=== PATIENT | male | born 1970 | race Caucasian/White ===

== ENCOUNTER 2016-08-08 09:27 | Emergency (ER) | payer MEDICARE, OTHER ==
[~2016-08-08] VITALS: Ht 180.3 cm; Wt 68.0 kg
[2016-08-08 09:32] VITALS: BP 124/75; PULSE 106; RESP 20; TEMP 98; O2SAT 95
[2016-08-08] MEDS ORDERED: predniSONE 20 MG TAB PO ONE (10:30)
[2016-08-08] MEDS ORDERED: diphenhydrAMINE HCL 25 MG CAP PO ONE (10:30)
[2016-08-08] MEDS ORDERED: CEPHALEXIN MONOHYDRATE 500 MG CAP PO ONE (10:30)
--- NOTE | 2016-08-08 10:31 | PD ---
HPI Chief Complaint: Edema Time Seen by Provider: 10:26 Travel History International Travel<30 days: No Contact w/Intl Traveler<30days: No Traveled to known affect area: No History of Present Illness HPI 46-year-old male presents to the emergency department for soft tissue swelling of the forehead. He states this started yesterday. He states he believes it is a reaction to Prolixin that he [facility] the [facility]. He states he has been receiving Prolixin for 2 months. He thinks that the medication was injected in his buttock and traveled up to his forehead. He states he like the medicine drained out of his forehead. He denies any fevers or chills. He Denies any difficulty breathing or swallowing. No chest pain or shortness of breath. No abdominal pain. No vomiting. He denies any other complaints other than forehead swelling. Patient is currently a resident [facility]. [facility] Past Medical History Diabetes: No Diminished Hearing: No Social History Alcohol Use: Yes (SOCIALLY) Tobacco Use: No Substance Use: No Allergies-Medications (Allergen,Severity, Reaction): Coded Allergies: No Known Allergies (Unverified , 08/08/16) Reported Meds & Prescriptions Reported Meds & Active Scripts Active Keflex (Cephalexin) 500 Mg Cap 500 Mg PO Q6H 10 Days Review of Systems Except as stated in HPI: all other systems reviewed are Neg Physical Exam Narrative GENERAL: Well-developed well-nourished male patient, ambulatory. Afebrile. SKIN: Warm and dry. Mild swelling noted to the entire forehead. There is mild erythema and warmth. However, patient states that he was out in the sun yesterday and states this is sunburn. No other facial swelling noted. HEAD: Normocephalic. Atraumatic. EYES: No scleral icterus. No injection or drainage. ENT: Mucosa pink and moist. No erythema or exudates. No uvular edema. No uvular , palatal, or tonsillar deviation. Airway patent. Nasal turbinates appear normal without nasal blood, purulent drainage or septal hematoma. Bilateral tympanic membranes are clear without erythema or perforation. NECK: Supple, trachea midline. No JVD or lymphadenopathy. CARDIOVASCULAR: Regular rate and rhythm without murmurs, gallops, or rubs. RESPIRATORY: Breath sounds equal bilaterally. No accessory muscle use. Lungs sounds are clear to auscultation throughout. GASTROINTESTINAL: Abdomen soft, non-tender, nondistended. MUSCULOSKELETAL: No cyanosis, or edema. BACK: Nontender without obvious deformity. No CVA tenderness. Data Data Last Documented VS Vital Signs Date Time Temp Pulse Resp B/P Pulse Ox O2 Delivery O2 Flow Rate FiO2 08/08/16 09:32 98.0 106 20 124/75 95 Room Air Orders Prednisone (Deltasone) (08/08/16 10:30) Diphenhydramine (Benadryl) (08/08/16 10:30) Cephalexin (Keflex) (08/08/16 10:30) MDM Medical Decision Making Medical Screen Exam Complete: Yes Emergency Medical Condition: Yes Medical Record Reviewed: Yes Differential Diagnosis Superficial burn versus cellulitis versus medication reaction Narrative Course 46-year-old male presents to the emergency department for evaluation of forehead swelling that started yesterday. He does state that he was out in the sun yesterday. His forehead is mildly erythema and warm. I don't see any other sun burned areas. This possible that the edema is just due to superficial burn from sun. Other possibility is cellulitis. Patient is given Benadryl and prednisone in the emergency department and is given first dose of Keflex. He will be discharged with a short-term prescription for Keflex. He is to take Benadryl [id number] as needed for itching and ice. He verbalizes agreement. Diagnosis Primary Impression: Superficial burn of forehead Referrals: Primary Care Physician call for appointment Patient Instructions: General Instructions, Superficial Burn (ED) Additional Instructions: Benadryl [id number] 25 to 50 mg every 6-8 hours as needed. Ice for 20 minutes 4-5 times daily. Take antibiotic as directed until gone. Follow-up with your primary care physician. Return to the emergency department for any acute worsening of symptoms. Med/Other Pt SpecificInfo: Prescription(s) given Scripts Cephalexin (Keflex)500 Mg [id number] Mg PO Q6H 10 Days Ref 0 Prov:Shannon Darnell 08/08/16 Disposition: 01 DISCHARGE HOME Condition: Stable Shannon Darnell Aug 08, 2016 10:31 Shannon Darnell Aug 08, 2016 10:31
[2016-08-08] MEDS ORDERED: CEPH-460 PO (10:35)
== END 2016-08-08 11:32 | disposition home or self-care (01) ==
LOC: NETRI 09:27
DX: T20.16XA Burn of first degree of forehead and cheek, initial encounter (principal); X08.8XXA Exposure to other specified smoke, fire and flames, initial encounter
CPT/HCPCS: 99282

== ENCOUNTER 2016-10-22 12:11 | Emergency (ER) | payer OTHER ==
[~2016-10-22] VITALS: Ht 180.3 cm; Wt 65.0 kg
[~2016-10-22 12:11] MED LIST: CEPH-460 PO
--- NOTE | 2016-10-22 12:25 | PD ---
Physical Exam Date Seen by Provider: Oct 22, 2016 Time Seen by Provider: 12:24 Narrative 46-year-old male with history of schizophrenia, brought in by [facility] under the [email or web address]. Patient was at [facility] and was referred here as he is a danger to himself and others according to her statement. The patient has no specific complaints. Patient states he feels also refused being a child molester and rapist. He feels the medication he is on is not helping him. He has no known drug allergies. Data Data Last Documented VS Vital Signs Date Time Temp Pulse Resp B/P Pulse Ox O2 Delivery O2 Flow Rate FiO2 10/22/16 20:18 97.6 120 18 129/75 96 Room Air Orders Complete Blood Count With Diff (10/22/16 12:23) Comprehensive Metabolic Panel (10/22/16 12:23) Urinalysis - C+S If Indicated (10/22/16 12:23) Psych Screen (10/22/16 12:23) Drug Screen, Random Urine (10/22/16 12:23) Alcohol (Ethanol) (10/22/16 12:23) Diet Regular Basic (10/22/16 Dinner) Labs Laboratory Tests Test 10/22/16 10/22/16 13:08 14:38 White Blood Count 9.3 TH/MM3 Red Blood Count 4.74 MIL/MM3 Hemoglobin 15.1 GM/DL Hematocrit 44.3 % Mean Corpuscular Volume 93.4 FL Mean Corpuscular Hemoglobin 31.8 PG Mean Corpuscular Hemoglobin 34.0 % Concent Red Cell Distribution Width 13.2 % Platelet Count 325 TH/MM3 Mean Platelet Volume 9.9 FL Neutrophils (%) (Auto) 71.7 % Lymphocytes (%) (Auto) 17.5 % Monocytes (%) (Auto) 8.0 % Eosinophils (%) (Auto) 2.4 % Basophils (%) (Auto) 0.4 % Neutrophils # (Auto) 6.7 TH/MM3 Lymphocytes # (Auto) 1.6 TH/MM3 Monocytes # (Auto) 0.7 TH/MM3 Eosinophils # (Auto) 0.2 TH/MM3 Basophils # (Auto) 0.0 TH/MM3 CBC Comment DIFF FINAL Differential Comment Sodium Level 139 MEQ/L Potassium Level 3.3 MEQ/L Chloride Level 102 MEQ/L Carbon Dioxide Level 24.8 MEQ/L Anion Gap 12 MEQ/L Blood Urea Nitrogen 12 MG/DL Creatinine 1.04 MG/DL Estimat Glomerular Filtration 77 ML/MIN Rate Random Glucose 109 MG/DL Calcium Level 8.7 MG/DL Total Bilirubin 0.2 MG/DL Aspartate Amino Transf 11 U/L (AST/SGOT) Alanine Aminotransferase 18 U/L (ALT/SGPT) Alkaline Phosphatase 76 U/L Total Protein 7.4 GM/DL Albumin 3.9 GM/DL Ethyl Alcohol Level LESS THAN 3 MG/DL Urine Color YELLOW Urine Turbidity CLEAR Urine pH 6.0 Urine Specific [place] 1.009 Urine Protein NEG mg/dL Urine Glucose (UA) NEG mg/dL Urine Ketones NEG mg/dL Urine Occult Blood NEG Urine Nitrite NEG Urine Bilirubin NEG Urine Urobilinogen LESS THAN 2.0 MG/DL Urine Leukocyte Esterase NEG Urine RBC LESS THAN 1 /hpf Urine WBC 1 /hpf Microscopic Urinalysis Comment CULT NOT INDICATED Urine Opiates Screen NEG Urine Barbiturates Screen NEG Urine Amphetamines Screen NEG Urine Benzodiazepines Screen NEG Urine Cocaine Screen NEG Urine Cannabinoids Screen NEG MDM Medical Record Reviewed: Yes Supervised Visit with ALPESH: Yes Narrative Course Labs are ordered per psychiatric protocol. Patient is awaiting med bed placement for clearance. Condition: Stable Jorge Parker Oct 22, 2016 12:25
[2016-10-22 12:47] VITALS: BP 117/79; PULSE 108; RESP 15; TEMP 98.2; O2SAT 98
[2016-10-22 12:58] VITALS: PULSE 110; RESP 18; TEMP 98.6; O2SAT 98
[2016-10-22] MEDS ORDERED: HALD50IN IM (12:58)
[2016-10-22] MEDS ORDERED: RISP.25 PO (12:58)
[2016-10-22] MEDS ORDERED: COGE1INJ IM (12:58)
[2016-10-22] MEDS ORDERED: FLUO-1 PO (12:58)
--- NOTE | 2016-10-22 13:00 | PD ---
HPI . Paranoid hallucinations Chief Complaint: Psychiatric Symptoms Time Seen by Provider: 13:00 Travel History International Travel<30 days: No Contact w/Intl Traveler<30days: No Traveled to known affect area: No History of Present Illness HPI 46-year-old male with history of mood disorder and depression here with complaints of paranoia. Patient was [place] acted at his nursing facility due to believes that people were calling him names such as fagot, child molester, etc. he says that everyone is calling him names including staff and patients. He tells me that no one has hit him or made any threats. He denies any suicidal ideation or homicidal ideation. He has no medical complaints. PFSH Past Medical History Diabetes: No Diminished Hearing: No Social History Alcohol Use: Yes (SOCIALLY) Tobacco Use: No Substance Use: No Allergies-Medications (Allergen,Severity, Reaction): Coded Allergies: No Known Allergies (Unverified , 08/08/16) Reported Meds & Prescriptions Reported Meds & Active Scripts Active Reported Cogentin Inj (Benztropine Mesylate) 1 Mg/Ml Inj 1 Mg IM HS Prozac (Fluoxetine HCl) 10 Mg Cap 10 Mg PO DAILY Haldol Decanoate Inj (Haloperidol Decanoate) 50 Mg/Ml Inj 50 Mg IM Q28D Risperdal (Risperidone) 0.25 Mg Tab 0.25 Mg PO DAILY Review of Systems General / Constitutional: No: Fever Eyes: No: Visual changes HENT: No: Headaches Cardiovascular: No: Chest Pain or Discomfort Respiratory: No: Shortness of Breath Gastrointestinal: No: Abdominal Pain Genitourinary: No: Dysuria Musculoskeletal: No: Pain Skin: No Rash Neurologic: No: Weakness Psychiatric: Positive: Other (paranoid), No: Depression Endocrine: No: Polydipsia Hematologic/Lymphatic: No: Easy Bruising Physical Exam Narrative GENERAL: AAO x 3, no acute distress, Well-nourished, well-developed patient. SKIN: Warm and dry. Dry scaling slightly erythematous patches near her eyebrows , cheeks and chin. Appears to be seborrheic dermatitis. HEAD: Normocephalic and atraumatic. EYES: No scleral icterus. No injection or drainage. EOM intact, PERRLA ENT: No nasal drainage noted. Mucous membranes pink. Airway patent. NECK: Supple, trachea midline. No JVD. CARDIOVASCULAR: Regular rate and rhythm without murmurs, gallops, or rubs. RESPIRATORY: Breath sounds equal bilaterally. No accessory muscle use. No rhonchi or rales. GASTROINTESTINAL: Abdomen soft, non-tender, nondistended. EXTREMITIES: No cyanosis or edema. BACK: Nontender without obvious deformity. No CVA tenderness. 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 Data Data Last Documented VS Vital Signs Date Time Temp Pulse Resp B/P Pulse Ox O2 Delivery O2 Flow Rate FiO2 10/22/16 12:58 98.6 110 18 98 Orders Complete Blood Count With Diff (10/22/16 12:23) Comprehensive Metabolic Panel (10/22/16 12:23) Urinalysis - C+S If Indicated (10/22/16 12:23) Psych Screen (10/22/16 12:23) Drug Screen, Random Urine (10/22/16 12:23) Alcohol (Ethanol) (10/22/16 12:23) Diet Regular Basic (10/22/16 Dinner) Labs Laboratory Tests Test 10/22/16 10/22/16 13:08 14:38 White Blood Count 9.3 TH/MM3 Red Blood Count 4.74 MIL/MM3 Hemoglobin 15.1 GM/DL Hematocrit 44.3 % Mean Corpuscular Volume 93.4 FL Mean Corpuscular Hemoglobin 31.8 PG Mean Corpuscular Hemoglobin 34.0 % Concent Red Cell Distribution Width 13.2 % Platelet Count 325 TH/MM3 Mean Platelet Volume 9.9 FL Neutrophils (%) (Auto) 71.7 % Lymphocytes (%) (Auto) 17.5 % Monocytes (%) (Auto) 8.0 % Eosinophils (%) (Auto) 2.4 % Basophils (%) (Auto) 0.4 % Neutrophils # (Auto) 6.7 TH/MM3 Lymphocytes # (Auto) 1.6 TH/MM3 Monocytes # (Auto) 0.7 TH/MM3 Eosinophils # (Auto) 0.2 TH/MM3 Basophils # (Auto) 0.0 TH/MM3 CBC Comment DIFF FINAL Differential Comment Sodium Level 139 MEQ/L Potassium Level 3.3 MEQ/L Chloride Level 102 MEQ/L Carbon Dioxide Level 24.8 MEQ/L Anion Gap 12 MEQ/L Blood Urea Nitrogen 12 MG/DL Creatinine 1.04 MG/DL Estimat Glomerular Filtration 77 ML/MIN Rate Random Glucose 109 MG/DL Calcium Level 8.7 MG/DL Total Bilirubin 0.2 MG/DL Aspartate Amino Transf 11 U/L (AST/SGOT) Alanine Aminotransferase 18 U/L (ALT/SGPT) Alkaline Phosphatase 76 U/L Total Protein 7.4 GM/DL Albumin 3.9 GM/DL Ethyl Alcohol Level LESS THAN 3 MG/DL Urine Color YELLOW Urine Turbidity CLEAR Urine pH 6.0 Urine Specific [place] 1.009 Urine Protein NEG mg/dL Urine Glucose (UA) NEG mg/dL Urine Ketones NEG mg/dL Urine Occult Blood NEG Urine Nitrite NEG Urine Bilirubin NEG Urine Urobilinogen LESS THAN 2.0 MG/DL Urine Leukocyte Esterase NEG Urine RBC LESS THAN 1 /hpf Urine WBC 1 /hpf Urine Opiates Screen NEG Urine Barbiturates Screen NEG Urine Amphetamines Screen NEG Urine Benzodiazepines Screen NEG Urine Cocaine Screen NEG Urine Cannabinoids Screen NEG MDM Medical Decision Making Medical Screen Exam Complete: Yes Emergency Medical Condition: Yes Medical Record Reviewed: Yes Differential Diagnosis paranoia, schizophrenia, bipolar disorder, Narrative Course 46-year-old male here with complaints of paranoia. Examination of patient is unremarkable. He does have what appears to be seborrheic dermatitis, but does not have any specific complaints about this. I will go ahead and order labs and if they are within normal limits, patient will be cleared for psych screen. Labs reviewed. They're within normal limits, except for minimally low K+. Patient is medically clear for psych screen. Laboratory Tests Test 10/22/16 10/22/16 13:08 14:38 White Blood Count 9.3 TH/MM3 Red Blood Count 4.74 MIL/MM3 Hemoglobin 15.1 GM/DL Hematocrit 44.3 % Mean Corpuscular Volume 93.4 FL Mean Corpuscular Hemoglobin 31.8 PG Mean Corpuscular Hemoglobin 34.0 % Concent Red Cell Distribution Width 13.2 % Platelet Count 325 TH/MM3 Mean Platelet Volume 9.9 FL Neutrophils (%) (Auto) 71.7 % Lymphocytes (%) (Auto) 17.5 % Monocytes (%) (Auto) 8.0 % Eosinophils (%) (Auto) 2.4 % Basophils (%) (Auto) 0.4 % Neutrophils # (Auto) 6.7 TH/MM3 Lymphocytes # (Auto) 1.6 TH/MM3 Monocytes # (Auto) 0.7 TH/MM3 Eosinophils # (Auto) 0.2 TH/MM3 Basophils # (Auto) 0.0 TH/MM3 CBC Comment DIFF FINAL Differential Comment Sodium Level 139 MEQ/L Potassium Level 3.3 MEQ/L Chloride Level 102 MEQ/L Carbon Dioxide Level 24.8 MEQ/L Anion Gap 12 MEQ/L Blood Urea Nitrogen 12 MG/DL Creatinine 1.04 MG/DL Estimat Glomerular Filtration 77 ML/MIN Rate Random Glucose 109 MG/DL Calcium Level 8.7 MG/DL Total Bilirubin 0.2 MG/DL Aspartate Amino Transf 11 U/L (AST/SGOT) Alanine Aminotransferase 18 U/L (ALT/SGPT) Alkaline Phosphatase 76 U/L Total Protein 7.4 GM/DL Albumin 3.9 GM/DL Ethyl Alcohol Level LESS THAN 3 MG/DL Urine Color YELLOW Urine Turbidity CLEAR Urine pH 6.0 Urine Specific [place] 1.009 Urine Protein NEG mg/dL Urine Glucose (UA) NEG mg/dL Urine Ketones NEG mg/dL Urine Occult Blood NEG Urine Nitrite NEG Urine Bilirubin NEG Urine Urobilinogen LESS THAN 2.0 MG/DL Urine Leukocyte Esterase NEG Urine RBC LESS THAN 1 /hpf Urine WBC 1 /hpf Urine Opiates Screen NEG Urine Barbiturates Screen NEG Urine Amphetamines Screen NEG Urine Benzodiazepines Screen NEG Urine Cocaine Screen NEG Urine Cannabinoids Screen NEG Diagnosis Primary Impression: Paranoid Condition: Stable Yue Victor Oct 22, 2016 13:00
[2016-10-22 15:08] LABS: BLOOD, URINE NEG (NEG); GLUCOSE,URINE NEG (NEG); KETONE, URINE NEG (NEG); NITRITE,URINE NEG (NEG); URINE COLOR YELLOW (YELLW/STRAW)
[2016-10-22 15:30] LABS: AMPHETAMINE, URINE NEG (NEG); BARBITURATES, URINE NEG (NEG); COCAINE, URINE NEG (NEG)
[2016-10-22 15:35] LABS: AUTOMATED NEUTROPHIL # 6.7 TH/MM3 (1.8-7.7); BASOPHIL % 0.4 % (0.0-2.0); EOSINOPHIL # 0.2 TH/MM3 (0-0.4); EOSINOPHIL % 2.4 % (0.0-4.0); HEMATOCRIT 44.3 % (39.0-51.0); HEMO FLAGS DIFF FINAL; LYMPH % 17.5 % (9.0-44.0); LYMPHOCYTE # 1.6 TH/MM3 (1.0-4.8); MEAN CELL VOLUME 93.4 FL (80.0-100.0); MEAN CORPUSCULAR HEMOGLOBIN 31.8 PG (27.0-34.0); NEUT % 71.7 % (16.0-70.0); PLATELET COUNT 325 TH/MM3 (150-450); RED BLOOD COUNT 4.74 MIL/MM3 (4.50-5.90); RED CELL DISTRIBUTION WIDTH 13.2 % (11.6-17.2); WHITE BLOOD COUNT 9.3 TH/MM3 (4.0-11.0)
[2016-10-22 16:21] LABS: ANION GAP 12 MEQ/L (5-15); AST (GOT) 11 U/L (15-37); BICARBONATE 24.8 MEQ/L (21.0-32.0); BLOOD UREA NITROGEN 12 MG/DL (7-18); CHLORIDE 102 MEQ/L (98-107); GLOMERULAR FILTRATION RATE 77 ML/MIN (>89); POTASSIUM 3.3 MEQ/L (3.5-5.1); SODIUM (NA) 139 MEQ/L (136-145)
[2016-10-22 16:22] LABS: ALT (GPT) 18 U/L (12-78)
[2016-10-22 16:24] LABS: ALKALINE PHOSPHATASE 76 U/L (45-117); TOTAL BILIRUBIN ADULT 0.2 MG/DL (0.2-1.0)
[2016-10-22 16:51] LABS: COMMENT (UR) CULT NOT INDICATED; CULTURE IF INDICATED CULT NOT INDICATED
[2016-10-22 20:18] VITALS: BP 129/75; PULSE 120; RESP 18; TEMP 97.6; O2SAT 96
[2016-10-22 22:05] VITALS: BP 117/60; PULSE 103; RESP 20; O2SAT 98
[2016-10-23 02:20] VITALS: BP 120/70; PULSE 99; RESP 18; O2SAT 97
== END 2016-10-23 03:30 ==
LOC: NEPD 12:11 → NEPJ 10-23 03:30
DX: F22 Delusional disorders (principal); F33.8 Other recurrent depressive disorders; L21.9 Seborrheic dermatitis, unspecified
CPT/HCPCS: 80053; 80307; 81001; 85025; 99284

== ENCOUNTER 2016-11-15 12:28 | Observation (INO) | payer MEDICARE, OTHER ==
[~2016-11-15 12:28] MED LIST changes: -CEPH-460 PO; +COGE1INJ IM; +FLUO-1 PO; +HALD50IN IM; +RISP.25 PO
[2016-11-15 12:46] VITALS: BP 127/59; PULSE 102; RESP 18; TEMP 97.9; O2SAT 98
[2016-11-15] MEDS ORDERED: SODIUM CHLOR 0.9% 1000 ML INJ 1,000 ML IV ONE (12:48)
--- NOTE | 2016-11-15 12:53 | PD ---
HPI Chief Complaint: Seizure Time Seen by Provider: 12:50 Travel History International Travel<30 days: No Contact w/Intl Traveler<30days: No Traveled to known affect area: No History of Present Illness HPI 46-year-old male presents to the emergency department for evaluation after a seizure at [facility]. Apparently, he was sitting when he fell forward and had a seizure. He has no history of seizures. He does state he has had a pressure in his head that has been ongoing for 3-4 months. He denies any headache at this time. He denies any neck pain or back pain. No chest pain or abdominal pain. No nausea, vomiting, diarrhea. He has a history of schizoaffective disorder. He is currently on Zyprexa, Haldol, Prozac. Patient did have incontinence and tongue biting during the episode. Patient was postictal when EMS arrived. He is now alert and conversing appropriately. Patient denies any alcohol or drug use. PFSH Past Medical History Anxiety: Yes Depression: Yes Cancer: Yes (L EYE) Diabetes: No Diminished Hearing: No Psychiatric: Yes Immunizations Current: No Schizophrenia: Yes Past Surgical History Eye Surgery: Yes (LEFT EYE) Social History Alcohol Use: Yes (SOCIALLY) Tobacco Use: Yes (1/2 PPD) Substance Use: No Allergies-Medications (Allergen,Severity, Reaction): Coded Allergies: No Known Allergies (Unverified , 11/15/16) Reported Meds & Prescriptions Reported Meds & Active Scripts Active Reported Cogentin Inj (Benztropine Mesylate) 1 Mg/Ml Inj 1 Mg IM HS Prozac (Fluoxetine HCl) 10 Mg Cap 10 Mg PO DAILY Haldol Decanoate Inj (Haloperidol Decanoate) 50 Mg/Ml Inj 50 Mg IM Q28D Risperdal (Risperidone) 0.25 Mg Tab 0.25 Mg PO DAILY Review of Systems Except as stated in HPI: all other systems reviewed are Neg Physical Exam Narrative GENERAL: Well-nourished, well-developed male patient, afebrile. SKIN: Focused skin assessment warm/dry. HEAD: Normocephalic. Atraumatic. ENT: Mucosa pink and moist. No erythema or exudates. No uvular edema. No uvular , palatal, or tonsillar deviation. Airway patent. Nasal turbinates appear normal without nasal blood, purulent drainage or septal hematoma. Bilateral tympanic membranes are clear without erythema or perforation. Patient does have abrasion to the right side of the tongue. EYES: No scleral icterus. No injection or drainage. PERRLA. EOM intact. NECK: Supple, trachea midline. No JVD or lymphadenopathy. CARDIOVASCULAR: Regular rate and rhythm without murmurs, gallops, or rubs. RESPIRATORY: Breath sounds equal bilaterally. No accessory muscle use. Lungs sounds are clear to auscultation. GASTROINTESTINAL: Abdomen soft, non-tender, nondistended. MUSCULOSKELETAL: No cyanosis, or edema. Bilateral upper and lower extremity strength 5/5. All extremities are neurovascularly intact. BACK: Nontender without obvious deformity. No CVA tenderness. Patient has no midline spinal tenderness. He has full rotation cervical spine without pain or stiffness. NEUROLOGICAL: Awake and alert. Cranial nerves II through XII intact. Motor and sensory grossly within normal limits. Five out of 5 muscle strength in all muscle groups. Normal speech. Finger to nose is normal bilaterally. Heel-to- zavaleta is normal bilaterally. Data Data Last Documented VS Vital Signs Date Time Temp Pulse Resp B/P Pulse Ox O2 Delivery O2 Flow Rate FiO2 11/15/16 12:47 101 98 11/15/16 12:46 97.9 18 127/59 Orders Complete Blood Count With Diff (11/15/16 12:48) Alcohol (Ethanol) (11/15/16 12:48) Drug Screen, Random Urine (11/15/16 12:48) Electrocardiogram (11/15/16 ) Ct Brain W/O Iv Contrast(Rout) (11/15/16 ) Blood Glucose (11/15/16 12:48) Ecg Monitoring (11/15/16 12:48) Iv Access Insert/Monitor (11/15/16 12:48) Oximetry (11/15/16 12:48) Comprehensive Metabolic Panel (11/15/16 12:48) Sodium Chlor 0.9% 1000 Ml Inj (Ns 1000 M (11/15/16 12:48) Sodium Chloride 0.9% Flush (Ns Flush) (11/15/16 13:00) Urinalysis - C+S If Indicated (11/15/16 12:48) Magnesium (Mg) (11/15/16 12:53) Admit Order (Ed Use Only) (11/15/16 14:04) Labs Laboratory Tests Test 11/15/16 11/15/16 12:56 13:34 White Blood Count 10.1 TH/MM3 Red Blood Count 4.25 MIL/MM3 Hemoglobin 12.9 GM/DL Hematocrit 39.0 % Mean Corpuscular Volume 91.7 FL Mean Corpuscular Hemoglobin 30.4 PG Mean Corpuscular Hemoglobin 33.1 % Concent Red Cell Distribution Width 13.3 % Platelet Count 236 TH/MM3 Mean Platelet Volume 10.0 FL Neutrophils (%) (Auto) 62.4 % Lymphocytes (%) (Auto) 26.2 % Monocytes (%) (Auto) 8.3 % Eosinophils (%) (Auto) 2.6 % Basophils (%) (Auto) 0.5 % Neutrophils # (Auto) 6.3 TH/MM3 Lymphocytes # (Auto) 2.6 TH/MM3 Monocytes # (Auto) 0.8 TH/MM3 Eosinophils # (Auto) 0.3 TH/MM3 Basophils # (Auto) 0.0 TH/MM3 CBC Comment AUTO DIFF Differential Total Cells 100 Counted Neutrophils % (Manual) 47 % Band Neutrophils % 6 % Lymphocytes % 32 % Monocytes % 9 % Eosinophils % 4 % Neutrophils # (Manual) 5.6 TH/MM3 Metamyelocytes 1 % Myelocytes 1 % Differential Comment FINAL DIFF MANUAL Platelet Estimate NORMAL Platelet Morphology Comment ENLARGED Ovalocytes 1+ Sodium Level 141 MEQ/L Potassium Level 4.3 MEQ/L Chloride Level 107 MEQ/L Carbon Dioxide Level 24.7 MEQ/L Anion Gap 9 MEQ/L Blood Urea Nitrogen 14 MG/DL Creatinine 1.05 MG/DL Estimat Glomerular Filtration 76 ML/MIN Rate Random Glucose 92 MG/DL Calcium Level 8.6 MG/DL Magnesium Level 2.0 MG/DL Total Bilirubin 0.2 MG/DL Aspartate Amino Transf 21 U/L (AST/SGOT) Alanine Aminotransferase 54 U/L (ALT/SGPT) Alkaline Phosphatase 71 U/L Total Protein 6.9 GM/DL Albumin 3.5 GM/DL Ethyl Alcohol Level LESS THAN 3 MG/DL Urine Color YELLOW Urine Turbidity CLEAR Urine pH 6.5 Urine Specific [place] 1.018 Urine Protein TRACE mg/dL Urine Glucose (UA) NEG mg/dL Urine Ketones TRACE mg/dL Urine Occult Blood SMALL Urine Nitrite NEG Urine Bilirubin NEG Urine Urobilinogen LESS THAN 2.0 MG/DL Urine Leukocyte Esterase NEG Urine RBC 1 /hpf Urine WBC 4 /hpf Urine Hyaline Casts 8 /lpf Urine Sperm RARE Microscopic Urinalysis Comment CULT NOT INDICATED Urine Opiates Screen NEG Urine Barbiturates Screen NEG Urine Amphetamines Screen NEG Urine Benzodiazepines Screen NEG Urine Cocaine Screen NEG Urine Cannabinoids Screen NEG MDM Medical Decision Making Medical Screen Exam Complete: Yes Emergency Medical Condition: Yes Medical Record Reviewed: Yes Interpretation(s) CT brain - CONCLUSION: Negative for an acute process. Differential Diagnosis Electrolyte abnormality versus dehydration versus cardiac arrhythmia versus intracranial abnormality versus new onset seizure Narrative Course 46-year-old male presents to the emergency department for evaluation of a seizure that occurred just prior to arrival. Patient denies any history of seizures. He does report a pressure in his head is been ongoing for 3-4 months , but does not have it at this time. EKG, CBC, CMP, magnesium, UA, alcohol level, urine drug screen are ordered and pending. CT of the brain is ordered and pending. EKG shows SR, HR 95, no acute ST changes. CBC shows no acute abnormality. CMP shows no acute abnormality. Magnesium is 2.0. Alcohol level is less than 3. UDS is negative. UA is negative for infection. CT of the brain is negative. I discussed the case with my attending physician, Dr. Guillen, who agrees with plan an disposition. Patient will be admitted for [address] Martinez accepted admission. Diagnosis Primary Impression: New onset seizure Admitting Information Admitting Physician Requests: Shannon Francis Nov 15, 2016 12:53
[2016-11-15] MEDS ORDERED: SODIUM CHLORIDE 0.9% FLUSH 10 ML FLUSH IVF PRN (13:00)
[2016-11-15 13:06] LABS: AUTOMATED NEUTROPHIL # 6.3 TH/MM3 (1.8-7.7); BASOPHIL % 0.5 % (0.0-2.0); EOSINOPHIL # 0.3 TH/MM3 (0-0.4); EOSINOPHIL % 2.6 % (0.0-4.0); LYMPH % 26.2 % (9.0-44.0); LYMPHOCYTE # 2.6 TH/MM3 (1.0-4.8); MEAN CELL VOLUME 91.7 FL (80.0-100.0); MEAN CORPUSCULAR HEMOGLOBIN 30.4 PG (27.0-34.0); MEAN CORPUSCULAR HGB CONC 33.1 % (32.0-36.0); MONO % 8.3 % (0.0-8.0); NEUT % 62.4 % (16.0-70.0); PLATELET COUNT 236 TH/MM3 (150-450); RED BLOOD COUNT 4.25 MIL/MM3 (4.50-5.90); RED CELL DISTRIBUTION WIDTH 13.3 % (11.6-17.2); WHITE BLOOD COUNT 10.1 TH/MM3 (4.0-11.0)
[2016-11-15 13:09] LABS: HEMO FLAGS AUTO DIFF
--- NOTE | 2016-11-15 13:21 | RADRPT ---
EXAM DATE/TIME: 11/15/2016 13:10 [place] COMPARISON: No previous studies available for comparison. INDICATIONS : Seizure today. RADIATION DOSE: 33.16 CTDIvol (mGy) MEDICAL HISTORY : None SURGICAL HISTORY : None. ENCOUNTER: Initial ACUITY: 1 day PAIN SCALE: 0/10 LOCATION: cranial TECHNIQUE: Multiple contiguous axial images were obtained of the head. Using automated exposure control and adj ustment of the mA and/or kV according to patient size, radiation dose was kept as low as reasonably a chievable to obtain optimal diagnostic quality images. DICOM format image data is available electro nically for review and comparison. FINDINGS: CEREBRUM: The ventricles are normal for age. No evidence of midline shift, mass lesion, hemorrhage or acute in farction. No extra-axial fluid collections are seen. POSTERIOR FOSSA: The cerebellum and brainstem are intact. The 4th ventricle is midline. The cerebellopontine angle i s unremarkable. EXTRACRANIAL: The visualized portion of the orbits is intact. SKULL: The calvaria is intact. No evidence of skull fracture. CONCLUSION: Negative for an acute process. Gucci Loaiza MD FACR on November 15, 2016 at 13:17 Board Certified Radiologist. This report was verified electronically.
[2016-11-15 13:28] LABS: ALT (GPT) 54 U/L (12-78); ANION GAP 9 MEQ/L (5-15); AST (GOT) 21 U/L (15-37); BICARBONATE 24.7 MEQ/L (21.0-32.0); BLOOD UREA NITROGEN 14 MG/DL (7-18); CHLORIDE 107 MEQ/L (98-107); GLOMERULAR FILTRATION RATE 76 ML/MIN (>89); POTASSIUM 4.3 MEQ/L (3.5-5.1); SODIUM (NA) 141 MEQ/L (136-145)
[2016-11-15 13:30] LABS: ALKALINE PHOSPHATASE 71 U/L (45-117); TOTAL BILIRUBIN ADULT 0.2 MG/DL (0.2-1.0)
[2016-11-15 13:34] LABS: ALCOHOL LESS THAN 3 MG/DL (0-5)
[2016-11-15 13:46] LABS: BANDS 6 % (0-6); EOSINOPHILS 4 % (0-4); METAMYELOCYTES 1 % (0-1); MYELOCYTES 1 % (0-0); NEUTROPHIL # MANUAL DIFF 5.6 TH/MM3 (1.8-7.7); OVALOCYTES 1+ (NORMAL); PLATELET ESTIMATE SMEAR NORMAL (NORMAL); PLATELET MORPHOLOGY ENLARGED (NORMAL); POLYS (SEG NEUTROPHILS) 47 % (16-70); SCAN/DIFF FINAL DIFF MANUAL; WBC DIFF SAMPLE 100
[2016-11-15 13:48] LABS: BLOOD, URINE SMALL (NEG); COMMENT (UR) CULT NOT INDICATED; CULTURE IF INDICATED CULT NOT INDICATED; GLUCOSE,URINE NEG (NEG); HYALINE CAST, URINE 8 /lpf (RARE); KETONE, URINE TRACE mg/dL (NEG); NITRITE,URINE NEG (NEG); PH, URINE 6.5 (5.0-8.5); URINE COLOR YELLOW (YELLW/STRAW)
[2016-11-15 14:12] VITALS: O2SAT 98
[2016-11-15] MEDS ORDERED: SODIUM CHLORIDE 0.9% FLUSH 10 ML FLUSH IV FLUSH PRN ×2 (14:15→16:15)
[2016-11-15] MEDS: SODIUM CHLOR 0.9% 1000 ML INJ 1,000 ML IV SCH (15:11)
--- NOTE | 2016-11-15 15:44 | HHI.HP ---
[facility] Service Family Medicine Primary Care Physician No Primary Care Physician Admission Diagnosis new onset seizure Diagnoses: International Travel<30 Days: No Contact w/Intl Traveler<30days: No Known Affected Area: No History of Present Illness Patient is a 46M with a history of schizoaffective disorder who presents via EMS after new onset seizure. He states he stood up, feeling dizzy, then falling down. He doesn't remember what happened after that, next thing he remembers is getting into ambulance. Dizziness episodes have occurred a couple of times daily over the last four months. Dizziness is only occurred upon standing. Witnesses at the scene note the patient had total body jerking and note that he had tongue biting and urinary incontinence during the episode. It is unclear how long the episode lasted. There have been no witnessed recurrences. He states he feels like he has slight memory problems since the episode, which is new to him. He notes he has had pressure in his head for four months as well. He reports this is his first syncopal episode. He reports this is his first possible seizure. He denies having had blurry vision or double vision prior to or during the episode. The patient states he has had pressure in his head for 4 months ( in conjunction with the dizziness spells) and he states the pressure got worse just prior to him having his syncopal episode today. He was eating lunch just prior to the episode. Doses feeling a little weak prior to the episode but feels fine now. He did not have any diaphoresis or chest pain. He did note chest tightness occurring over course of a few minutes a couple days ago. It occurred while lying down without any significant exertion. It resolved spontaneously. Of note, patient states he is on Haldol, olanzapine, and Prozac. Other medications or possibly discontinued in the recent past. He gets his medications from [facility]. 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 He states that he underwent radiation therapy and has been lost to follow-up for the last 2+ years. Note that his vision has gotten worse recently. He denies any weight loss. (Mayra Martinez MD R1) Review of Systems Constitutional: COMPLAINS OF: Weight gain (20lb in 2 weeks), Weight loss, DENIES: Fever, Chills Eyes: COMPLAINS OF: Vision loss, DENIES: Blurred vision, Diplopia Ears, nose, mouth, throat: DENIES: Tinnitus, Hearing loss, Vertigo, Throat pain , Running Nose Respiratory: DENIES: Cough, Snoring, Wheezing, Shortness of breath Cardiovascular: COMPLAINS OF: Syncope, DENIES: Chest pain, Palpitations, Lower Extremity Edema Gastrointestinal: DENIES: Abdominal pain, Black stools, Bloody stools, Constipation, Diarrhea, Nausea, Vomiting Genitourinary: DENIES: Urinary frequency, Urinary incontinence, Hematuria, Dysuria Integumentary: DENIES: Pruritus, Rash Hematologic/lymphatic: DENIES: Bruising, Lymphadenopathy Neurologic: COMPLAINS OF: Seizures (x1), DENIES: Headache, Localized weakness , Paresthesias (Mayra Martinez MD R1) Past Family Social History Past Medical History Schizoaffective disorder diagnosed 8 years ago Past Surgical History Melanoma (radioactive plaque placed age, approx 2006) - not monitored for years Reported Medications Reported Meds & Active Scripts Active Reported Cogentin Inj (Benztropine Mesylate) 1 Mg/Ml Inj 1 Mg IM HS Prozac (Fluoxetine HCl) 10 Mg Cap 10 Mg PO DAILY Haldol Decanoate Inj (Haloperidol Decanoate) 50 Mg/Ml Inj 50 Mg IM Q28D Risperdal (Risperidone) 0.25 Mg Tab 0.25 Mg PO DAILY (Mayra Martinez MD R1) Allergies: Coded Allergies: No Known Allergies (Unverified , 11/15/16) Active Ordered Medications Inpatient Medications Lorazepam (Ativan Inj) 2 mg UNSCH PRN IV SEE LABEL COMMENTS; Start 11/15/16 at 16:15 Ondansetron HCl (Zofran Inj) 4 mg Q6H PRN IV NAUSEA OR VOMITING; Start 11/15/16 at 16:15 Sodium Chloride (NS 1000 ml Inj) 1,000 ml @ 100 mls/hr Q10H IV Last administered on 11/15/16t 15:11; Start 11/15/16 at 14:07 Sodium Chloride (NS Flush) 2 ml BID IV FLUSH ; Start 11/15/16 at 21:00 Sodium Chloride 2 ml 2 ml UNSCH PRN IVF FLUSH AFTER USING IV ACCESS; Start 11/15 at 13:00; Stop 11/15/16 at 14:43; Status DC Family History Patient reports no medical problems in his family Social History He lives at [facility], which is assisted living facility. He states he was placed there through [facility] because he was homeless. He does note he spent some time in long-term in the past. Cigarettes: 5 cigarettes daily months, quit for 10 years. Alcohol: Denies, used to drink heavily in his 20s. Illicit: Denies current use. History of remote cocaine as well as marijuana abuse. (Mayra Martinez MD R1) Physical Exam Vital Signs Vital Signs Date Time Temp Pulse Resp B/P Pulse Ox O2 Delivery O2 Flow Rate FiO2 11/15/16 14:12 98 Room Air 11/15/16 12:47 101 98 11/15/16 12:46 97.9 102 18 127/59 98 Physical Exam GENERAL: Well-appearing, well-nourished white male. His nails are painted black. He appears to be in no apparent distress. SKIN: Warm and dry. No obvious rashes or bruises. HEAD: Atraumatic. Normocephalic. EYES: Pupils equal and round. No scleral icterus. No injection or drainage. ENT: No nasal bleeding or discharge. Mucous membranes pink and moist. Uvula is midline. He does have it appeared to be bite johnston on the anterolateral tongue bilaterally which are not bleeding at this time. NECK: Trachea midline. No JVD. CARDIOVASCULAR: Regular rate and rhythm. No murmurs, gallops or rubs. RESPIRATORY: No accessory muscle use. Clear to auscultation without crackles or rhonchi. Breath sounds equal bilaterally. GASTROINTESTINAL: Abdomen soft, non-tender, nondistended. Bowel sounds are present and normal. Hepatic and splenic margins not palpable. MUSCULOSKELETAL: Extremities without clubbing, cyanosis, or edema. No obvious deformities. NEUROLOGICAL: Awake and alert. No obvious cranial nerve deficits. Motor grossly within normal limits. His strength is grossly normal as well. Has 2+ pulses in the patellae bilaterally. Normal speech. PSYCHIATRIC: Appropriate mood and affect; insight and judgment normal. Does not appear to be responding to internal stimuli. Laboratory Laboratory Tests Test 11/15/16 11/15/16 12:56 13:34 White Blood Count 10.1 Red Blood Count 4.25 Hemoglobin 12.9 Hematocrit 39.0 Mean Corpuscular Volume 91.7 Mean Corpuscular Hemoglobin 30.4 Mean Corpuscular Hemoglobin 33.1 Concent Red Cell Distribution Width 13.3 Platelet Count 236 Mean Platelet Volume 10.0 Neutrophils (%) (Auto) 62.4 Lymphocytes (%) (Auto) 26.2 Monocytes (%) (Auto) 8.3 Eosinophils (%) (Auto) 2.6 Basophils (%) (Auto) 0.5 Neutrophils # (Auto) 6.3 Lymphocytes # (Auto) 2.6 Monocytes # (Auto) 0.8 Eosinophils # (Auto) 0.3 Basophils # (Auto) 0.0 CBC Comment AUTO DIFF Differential Total Cells 100 Counted Neutrophils % (Manual) 47 Band Neutrophils % 6 Lymphocytes % 32 Monocytes % 9 Eosinophils % 4 Neutrophils # (Manual) 5.6 Metamyelocytes 1 Myelocytes 1 Differential Comment FINAL DIFF MANUAL Platelet Estimate NORMAL Platelet Morphology Comment ENLARGED Ovalocytes 1+ Sodium Level 141 Potassium Level 4.3 Chloride Level 107 Carbon Dioxide Level 24.7 Anion Gap 9 Blood Urea Nitrogen 14 Creatinine 1.05 Estimat Glomerular Filtration 76 Rate Random Glucose 92 Calcium Level 8.6 Magnesium Level 2.0 Total Bilirubin 0.2 Aspartate Amino Transf 21 (AST/SGOT) Alanine Aminotransferase 54 (ALT/SGPT) Alkaline Phosphatase 71 Total Protein 6.9 Albumin 3.5 Ethyl Alcohol Level LESS THAN 3 Urine Color YELLOW Urine Turbidity CLEAR Urine pH 6.5 Urine Specific [place] 1.018 Urine Protein TRACE Urine Glucose (UA) NEG Urine Ketones TRACE Urine Occult Blood SMALL Urine Nitrite NEG Urine Bilirubin NEG Urine Urobilinogen LESS THAN 2.0 Urine Leukocyte Esterase NEG Urine RBC 1 Urine WBC 4 Urine Hyaline Casts 8 Urine Sperm RARE Microscopic Urinalysis Comment CULT NOT INDICATED Urine Opiates Screen NEG Urine Barbiturates Screen NEG Urine Amphetamines Screen NEG Urine Benzodiazepines Screen NEG Urine Cocaine Screen NEG Urine Cannabinoids Screen NEG (Mayra Martinez MD R1) Result Diagram: 11/15/16 1256 11/15/16 1256 Imaging Last Impressions Head CT 11/15/16 0000 Signed Impressions: Service Date/Time: Tuesday, November 15, 2016 13:10 - CONCLUSION: Negative for an acute process. Gucci Loaiza MD FACR (Mayra Martinez MD R1) Assessment and Plan Assessment and Plan 46-year-old male with history of schizoaffective disorder who was admitted to observation after new onset seizure. Code Status Full Code Discussed Condition With Discussed with Dr. Jovel, attending; Dr. Wells, PGY-2; and Dr. Gay, PGY-1. (Mayra Martinez MD R1) Problem List: (1) New onset seizure Status: Acute Plan: Patient with new onset seizure 1, witnessed at his assisted living facility. Unclear etiology Vital signs are within normal limits He'll be admitted for observation and further workup Neurology consulted for evaluation of new onset seizures EEG, MRI ordered Syncope work-up initiated: Trend cardiac enzymes (initial negative) Trend EKG (initial NSR, no signs of acute ischemia) Carotic US ordered Consider echocardiogram in the AM ED Course: Presented via EMS for witnessed likely tonic-clonic seizure Per history offered by EMS, possibly was tonic-clonic in nature On admission, mildly postictal during interview, though symptoms were mild Workup in the ED included routine lab work and urine drug screen unremarkable aside from mildly elevated TSH Vital signs are grossly within normal limits on admission and patient is on room air (2) Schizoaffective disorder Status: Chronic Plan: Chronic schizoaffective disorder per patient He is on Haldol, Zyprexa, Prozac per his report. Per EMR he is on long-acting Haldol (q28d) Will attempt to obtain information regarding psychotropic medications from pharmacy his pharmacy tomorrow Consider psychiatry consult for medication management in the morning (3) Chest pain of uncertain etiology Status: Resolved Plan: Patient reported chest tightness a few days ago Likely not related to his symptoms We'll get initial troponin to rule out ischemic event related to syncopal episode (4) Fluids/Electrolytes/Nutrition/Prophylaxis Status: Acute Plan: Fluids: [tolerating PO/NS @ 100ml/hr] Electrolytes: [monitor and replete as needed] Nutrition: [heart-healthy diet] DVT Prophylaxis: Early ambulation. [Heparin 5000U subQ q12hr/Lovenox 40mg subQ q24hr/bilateral SCDs] GI Prophylaxis: [steroids/ventilator/GIB/burn] (Mayra Martinez MD R1) Mayra Martinez MD R1 Nov 15, 2016 15:44 Brynn Jovel MD Nov 17, 2016 16:32
[2016-11-15] MEDS ORDERED: LORazepam 2 MG/ML VIAL IV PRN (16:15)
[2016-11-15] MEDS ORDERED: ONDANSETRON HCL 4 MG/2 ML VIAL IV PRN (16:15)
[2016-11-15 16:17] VITALS: BP 113/65
[2016-11-15] MEDS ORDERED: GADODIAMIDE PF 287 MG/ML 5 ML VIAL (for RAD MRI) IV ONE (18:01)
[2016-11-15 19:00] VITALS: BP_SYST 102; BP_SYST 110; BP_SYST 119; BP_DIAS 61; BP_DIAS 62; BP_DIAS 64; PULSE 65; RESP 16; TEMP 98.1; O2SAT 97
--- NOTE | 2016-11-15 19:47 | HHI.FPPN ---
Subjective Subjective Patient seen and examined. Case reviewed and discussed Please refer to resident H&P for further details regarding HPI, ROS, PMH, SurgHx , FH and SocHx In summary, patient is a 46yoM with no known seizure history, +history of schizoaffective disorder presenting from his [facility] after witnessed seizure vs syncopal episode He reports he stood up, felt lightheaded and then fell to the ground losing consciousness. He did however have urinary incontinence and significant tongue- biting during this episodes. He is seen in the ED, complaining of "head fullness" and some memory impairment , no headaches, chest pain at the current time. [facility] Objective Objective Last Impressions Head CT 11/15/16 0000 Signed Impressions: Service Date/Time: Tuesday, November 15, 2016 13:10 - CONCLUSION: Negative for an acute process. Gucci Loaiza MD FACR Laboratory Tests - Abnormals Test 11/15/16 11/15/16 12:56 13:34 Red Blood Count 4.25 MIL/MM3 Hemoglobin 12.9 GM/DL Monocytes (%) (Auto) 8.3 % Monocytes % 9 % Myelocytes 1 % Platelet Morphology Comment ENLARGED Ovalocytes 1+ Estimat Glomerular Filtration 76 ML/MIN Rate Thyroid Stimulating Hormone 4.370 uIU/ML 3rd Gen Urine Ketones TRACE mg/dL Urine Occult Blood SMALL Urine Sperm RARE Vital Signs 11/15/16 11/15/16 11/15/16 11/15/16 12:46 12:47 14:12 16:17 Temp 97.9 Pulse 102 101 76 Resp 18 18 B/P 127/59 113/65 Pulse Ox 98 98 98 99 O2 Delivery Room Air 11/15/16 19:00 Temp 98.1 Pulse 65 Resp 16 B/P 102/61 110/62 119/64 Pulse Ox 97 Physical exam GENERAL: thin wdwn male, mild pallor, NAD SKIN: Warm and dry. No ecchymoses. Mild L cheek erythema from episode HEAD: Normocephalic. AT EYES: No scleral icterus. No injection or drainage. ENT: OP clear. TMs clear bilaterally. Bilateral tongue with evidence of tongue- biting. Lower lip with small bite. Buccal mucosa intact. NECK: Supple, trachea midline. No JVD or lymphadenopathy. CARDIOVASCULAR: Regular rate and rhythm without audible murmurs, gallops, or rubs. RESPIRATORY: Breath sounds equal and clear bilaterally. No accessory muscle use. GASTROINTESTINAL: Abdomen soft, non-tender, nondistended. Normal active BS MUSCULOSKELETAL: No cyanosis, or edema. No calf tenderness. BACK: Nontender without obvious deformity. No CVA tenderness. NEURO: Awake and alert. Mild slowing with recall, CN grossly intact. MAEW. Alert and oriented x 3. Normal reflexes Assessment Assessment 46yoM admitted with: Syncope vs seizure Hx ocular melanoma schizoaffective disorder tachycardia PLAN PLAN Brain MRI given history of melanoma Neuro consult [place]cks EEG Seizure precautions 2D echo Carotid ultrasound Telemetry Tox screen Counseled on smoking cessation Counseled on appropriate ophthalmology follow-up for ocular melanoma Resume home meds as appropriate Patient seen and examined. Case reviewed and discussed Agree with plan of care as discussed with me and documented in the resident note. Brynn Jovel MD Nov 15, 2016 19:47
--- NOTE | 2016-11-15 20:05 | RADRPT ---
EXAM DATE/TIME: 11/15/2016 17:46 [facility] COMPARISON: CT BRAIN W/O CONTRAST, November 15, 2016, 13:10. INDICATIONS : Seizures. CONTRAST: 15 cc Omniscan (gadodiamide) IV MEDICAL HISTORY : Seizures. Melanoma of the left eye. SURGICAL HISTORY : Eye sx, clip behind left eye was removed in 2006. ENCOUNTER: Initial ACUITY: 1 day PAIN SCORE: 3/10 LOCATION: Bilateral cranial TECHNIQUE: Multiplanar, multisequence MRI of the brain was performed both prior to and following the administrat ion of paramagnetic contrast. FINDINGS: CEREBRUM: The ventricles are normal for age. No evidence of midline shift, mass lesion, hemorrhage or acute in farction. No extraaxial fluid collections are seen. The pituitary gland and suprasellar cistern are normal in configuration. WHITE MATTER: No significant signal abnormalities are seen in the white matter. POSTERIOR FOSSA: The cerebellum and brainstem are intact. The 4th ventricle is midline. The cerebellopontine angle is unremarkable. The cerebellar tonsils are normal in position. DIFFUSION IMAGING: No focal areas of restricted diffusion are seen. No evidence of acute infarction. EXTRACRANIAL: The visualized portions of the orbits and paranasal sinuses are unremarkable. POST-CONTRAST: No abnormal areas of parenchymal or dural enhancement. No evidence of blood-brain barrier breakdown. CONCLUSION: Negative MRI of the brain with and without contrast. Zoran Kruger MD on November 15, 2016 at 20:01 Board Certified Radiologist. This report was verified electronically.
[2016-11-15 20:44] VITALS: O2SAT 96
[2016-11-15] MEDS ORDERED: ACETAMINOPHEN 325 MG TAB PO PRN (20:45)
[2016-11-15] MEDS ORDERED: cloNIDine HCL 0.1 MG TAB PO PRN (20:45)
[2016-11-15] MEDS ORDERED: SODIUM CHLORIDE 0.9% FLUSH 10 ML FLUSH IV FLUSH SCH (21:00)
[2016-11-15] MEDS: SODIUM CHLORIDE 0.9% FLUSH 10 ML FLUSH IV FLUSH SCH (21:00)
--- NOTE | 2016-11-15 22:58 | MB ---
cc: JEM OG M.D. DATE OF CONSULTATION: 11/15/2016 REASON FOR CONSULTATION: Neurological consultation. HISTORY OF PRESENT ILLNESS: The patient is a 46-year-old with history of new onset seizure. The patient lives over in [facility], an assisted living facility. He has a psychiatric history and he has been on antipsychotic medications. He never had seizures. Today he seemed to be fine though lately he is having some head pressure. He stood up and felt like he was going to pass out. He does not remember much more. He passed out, fell and had a generalized tonic-clonic seizure. He lost urine control and bit his tongue. It appears that he has some recollection of being in the ambulance. MEDICATIONS At home: 1. Cogentin 1 milligram a day. 2. Prozac 10 milligrams a day. 3. Haldol decanoate 50 milligrams every 28th day. 4. Risperidone 0.25 milligrams a day. SOCIAL HISTORY: He denies alcohol, no drug use. PHYSICAL EXAMINATION: The patient was alert, pleasant, cooperative, oriented, and seemed to be back to baseline. He is in good spirits. Reflexes 1 to 2+ throughout and plantar response is flexor. He has good strength throughout. He has evidence of tongue injury. Pupils are about same size reactive. ANCILLARY DATA WBC 10.1, hemoglobin 12.9, platelet count 236. Chemistry: essentially normal, TSH pending. The urine toxicology negative. CT brain without contrast is negative. ASSESSMENT New onset seizure. At first the only risk factor here is the antipsychotic medication but there has been no apparent change in these. We will obtain EEG and MRI of the brain with and without contrast, p.r.n. Ativan, and if there is seizure recurrence we will start anticonvulsants, otherwise await on the EEG, probably start on anti-convulsion medications after the EEG. The risk factors which are the combination of Prozac, Haldol and Risperdal really cannot be changed at this time but in the future, perhaps psychiatry will consider eliminating the combination of medications in this scenario. Thank you for asking us to assist in his care. Jem Go MD [facility] /5:06 PM /10:54 PM
--- NOTE | 2016-11-15 23:29 | RADRPT ---
EXAM DATE/TIME: 11/15/2016 22:12 [facility] COMPARISON: No previous studies available for comparison. INDICATIONS : Syncope. MEDICAL HISTORY : Left eye melanoma. Syncope. Weight loss. Weight gain. Depression. Schizophrenia. SURGICAL HISTORY : Left eye surgery. ENCOUNTER: Initial ACUITY: 1 day PAIN SCORE: Nonresponsive. LOCATION: Bilateral neck PEAK SYSTOLIC VELOCITIES (cm/sec): ICA/CCA RATIO: Right: 0.7 Left: 0.6 ICA: Right: 69.3 Left: 72.7 CCA: Right: 96.3 Left: 125.6 ECA: Right: 84.5 Left: 93.0 VERTEBRAL: Right: 58.0 antegrade Left: 43.9 antegrade Elevated flow velocities and ICA/CCA ratios have been found to correlate with increased degrees of vessel stenosis, calculated as percentage of diameter relative to a normal segment of distal ICA/CCA FINDINGS: RIGHT CAROTID: No significant stenosis is visualized. Minimal plaque. The waveforms are within normal limits. LEFT CAROTID: No significant stenosis is visualized. Minimal plaque. The waveforms are within normal limits. VERTEBRAL ARTERIES: Antegrade flow is seen in both vertebral arteries. MISCELLANEOUS: None. CONCLUSION: No hemodynamically significant stenosis in either carotid artery. Chirag Dent MD on November 15, 2016 at 23:26 Board Certified Radiologist. This report was verified electronically.
[2016-11-15 23:33] VITALS: PULSE 86
[2016-11-16] VITALS (12 sets, daily range): BP systolic 93–107; BP diastolic 54–64; PULSE 64–89; RESP 16–20; TEMP 97.6–98.8; O2SAT 69–99
[2016-11-16] MEDS: SODIUM CHLOR 0.9% 1000 ML INJ 1,000 ML IV SCH ×2 (00:07→07:55)
[2016-11-16 06:07] LABS: BASOPHIL % 0.2 % (0.0-2.0); EOSINOPHIL # 0.2 TH/MM3 (0-0.4); EOSINOPHIL % 2.6 % (0.0-4.0); HEMATOCRIT 33.9 % (39.0-51.0); HEMO FLAGS DIFF FINAL; LYMPH % 20.2 % (9.0-44.0); LYMPHOCYTE # 1.8 TH/MM3 (1.0-4.8); MEAN CELL VOLUME 90.7 FL (80.0-100.0); MEAN CORPUSCULAR HEMOGLOBIN 31.5 PG (27.0-34.0); MEAN CORPUSCULAR HGB CONC 34.8 % (32.0-36.0); MONO % 9.6 % (0.0-8.0); NEUT % 67.4 % (16.0-70.0); PLATELET COUNT 200 TH/MM3 (150-450); RED BLOOD COUNT 3.74 MIL/MM3 (4.50-5.90); WHITE BLOOD COUNT 8.9 TH/MM3 (4.0-11.0)
[2016-11-16 06:22] LABS: BICARBONATE 29.5 MEQ/L (21.0-32.0); POTASSIUM 3.7 MEQ/L (3.5-5.1)
[2016-11-16] MEDS: SODIUM CHLORIDE 0.9% FLUSH 10 ML FLUSH IV FLUSH SCH ×2 (07:55→20:55)
[2016-11-16] MEDS ORDERED: PROZ40CA PO (10:50)
[2016-11-16] MEDS ORDERED: HALO5TAB PO (10:53)
[2016-11-16] MEDS ORDERED: ZYPR20TA PO (10:54)
[2016-11-16] MEDS: FLUTICASONE PROPIONATE 50 MCG/ACT 16 GM NASAL SPRAY EACH NARE SCH (12:16)
--- NOTE | 2016-11-16 12:46 | HHI.FPPN ---
Subjective Remarks Patient was seen and evaluated this morning. He states that he is feeling well. He describes a pressure in his head that he has been feeling over the past few months and believes may have contributed to his syncopal/seizure episode yesterday. He states that his memory is better today but is unable to recall dosages of his home medication. He denies dizziness. He denies chest pain, heart palpitations, and lower extremity edema. He denies any active bleeding. He has not had a bowel movement in the past 24hrs. Patient was counseled on seizure precautions including no driving, swimming, bathing alone. (Radha Rosenberg MD R1) Objective Vitals Vital Signs Date Time Temp Pulse Resp B/P Pulse Ox O2 Delivery O2 Flow Rate FiO2 11/16/16 08:22 97.8 88 20 107/54 96 11/16/16 08:03 97 21 11/16/16 08:00 89 11/16/16 04:21 66 11/16/16 03:36 98.1 75 16 97/54 99 11/16/16 00:34 74 11/16/16 00:06 97.6 68 16 93/55 69 11/15/16 23:33 86 11/15/16 20:44 96 21 11/15/16 19:00 98.1 65 16 102/61 97 110/62 119/64 11/15/16 16:17 76 18 113/65 99 11/15/16 14:12 98 Room Air 11/15/16 12:47 101 98 11/15/16 12:46 97.9 102 18 127/59 98 I/O 11/15/16 11/15/16 11/15/16 11/16/16 11/16/16 11/16/16 07:00 15:00 23:00 07:00 15:00 23:00 Intake Total 740 ml Balance 740 ml Intake Oral 240 ml IV Total 500 ml (Radha Rosenberg MD R1) Result Diagram: 11/16/16 0505 11/16/16 0505 Imaging Last Impressions Head CT 11/15/16 0000 Signed Impressions: Service Date/Time: Tuesday, November 15, 2016 13:10 - CONCLUSION: Negative for an acute process. Gucci Loaiza MD FACR Carotid Artery Ultrasound 11/15/16 0000 Signed Impressions: Service Date/Time: Tuesday, November 15, 2016 22:12 - CONCLUSION: No hemodynamically significant stenosis in either carotid artery. Chirag Dent MD Brain MRI 11/15/16 0000 Signed Impressions: Service Date/Time: Tuesday, November 15, 2016 17:46 - CONCLUSION: Negative MRI of the brain with and without contrast. Zoran Kruger MD Objective Remarks GENERAL: Well-appearing, well-nourished white male. His nails are painted black. He appears to be in no apparent distress. SKIN: Warm and dry. No obvious rashes or bruises. HEAD: Atraumatic. Normocephalic. EYES: Pupils equal and round. No scleral icterus. No injection or drainage. ENT: No nasal bleeding or discharge. Mucous membranes pink and moist. Uvula is midline. He does have it appeared to be bite johnston on the anterolateral tongue bilaterally which are not bleeding at this time. NECK: Trachea midline. No JVD. CARDIOVASCULAR: Regular rate and rhythm. No murmurs, gallops or rubs. RESPIRATORY: No accessory muscle use. Clear to auscultation without crackles or rhonchi. Breath sounds equal bilaterally. GASTROINTESTINAL: Abdomen soft, non-tender, nondistended. Bowel sounds are present and normal. Hepatic and splenic margins not palpable. MUSCULOSKELETAL: Extremities without clubbing, cyanosis, or edema. No obvious deformities. NEUROLOGICAL: Awake and alert. No obvious cranial nerve deficits. Motor grossly within normal limits. His strength is grossly normal as well. Has 2+ pulses in the patellae bilaterally. Normal speech. PSYCHIATRIC: Appropriate mood and affect; insight and judgment normal. Does not appear to be responding to internal stimuli. Medications and IVs Current Medications Medications (Trade) Dose Ordered Sig/Silvana Route Start Time Stop Time Status Last Admin (NS Flush) 2 ml UNSCH PRN IV FLUSH 11/15/16 16:15 (NS Flush) 2 ml BID IV FLUSH 11/15/16 21:00 (Ativan Inj) 2 mg UNSCH PRN IV 11/15/16 16:15 (Zofran Inj) 4 mg Q6H PRN IV 11/15/16 16:15 (Tylenol) 650 mg Q6H PRN PO 11/15/16 20:45 (Catapres) 0.1 mg Q6H PRN PO 11/15/16 20:45 (Flonase Robert Spr) 2 spray DAILY EACH NARE 11/16/16 10:30 (Radha Rosenberg MD R1) Urinary Catheter: No (Radha Rosenberg MD R1) Vascular Central Line Catheter: No (Radha Rosenberg MD R1) A/P Assessment and Plan 46-year-old male with history of schizoaffective disorder who was admitted to observation after possible new onset seizure. Discharge Planning EEG and Echo have been ordered. [facility] after procedural/imaging reports are available and plan has been made. (Radha Rosenberg MD R1) Attending Attestation Patient seen and examined with the resident team. Case reviewed and discussed Agree with plan of care as discussed with me and documented in the resident note. (Brynn Jovel MD) Problem List: (1) New onset seizure Status: Acute Plan: Patient with new onset seizure 1, witnessed at his assisted living facility. Unclear etiology Vital signs continue to be within normal limits. Neurology consulted for evaluation of new onset seizures * Waiting for MRI and EEG results before making recommendations. EEG ordered Continue to trend EKG (initial NSR, no signs of acute ischemia) as part of syncope work-up. 11/15: He was admitted for observation and further workup. Head CT negative MRI negative Syncope work-up initiated: * Troponin x 2 negative * Carotic US negative ED Course: Presented via EMS for witnessed likely tonic-clonic seizure Per history offered by EMS, possibly was tonic-clonic in nature On admission, mildly postictal during interview, though symptoms were mild Workup in the ED included routine lab work and urine drug screen unremarkable aside from mildly elevated TSH Vital signs are grossly within normal limits on admission and patient is on room air (2) Schizoaffective disorder Status: Chronic Plan: Chronic schizoaffective disorder per patient. Assisted living facility was contacted on 11/16 to complete medication reconciliation. Patient was reported to be on followings medications: Benztropine 1 mg IM HS Fluoxetine 40 mg PO daily Haloperidol 5 mg PO BID Olanzapine 20 mg PO daily Home medications continued. (3) Anemia Status: Acute Plan: Hgb 12.9 -> 11.8 L Unclear etiology No active source of bleeding identified at this time. Monitor H&H. (4) Chest pain of uncertain etiology Status: Resolved Plan: Patient denies chest pain. Troponin x2 negative. Hospital Course: Patient reported chest tightness a few days ago. Likely not related to his symptoms. Get serial troponin to rule out ischemic event related to syncopal episode. (5) Fluids/Electrolytes/Nutrition/Prophylaxis Status: Acute Plan: Fluids: * Tolerating PO * NS 1,000 at 1,000 mls/hr discontinued 11/16 Electrolytes: * Monitor and replace as needed * Calcium 7.9 on 11/16 - monitor at this time Nutrition: * Heart healthy diet DVT Prophylaxis: * Early ambulation GI Prophylaxis: * Not indicated (Radha Rosenberg MD R1) Problem Qualifiers (1) Anemia: Qualified Code: D64.9 - Anemia, unspecified type Radha Rosenberg MD R1 Nov 16, 2016 12:46 Brynn Jovel MD Nov 17, 2016 16:35
[2016-11-16] MEDS: OLANZapine 10 MG TAB PO SCH (13:16)
[2016-11-16] MEDS: FLUoxetine HCL 20 MG CAP PO SCH (13:16)
[2016-11-16] MEDS: HALOPERIDOL 5 MG TAB PO SCH ×2 (13:16→20:54)
--- NOTE | 2016-11-16 13:31 | EKG ---
Date Performed: 11/15/2016 Time Performed: 12:53:01 PTAGE: 46 years EKG: Sinus rhythm POSSIBLE LEFT ATRIAL ENLARGEMENT BORDERLINE ECG PREVIOUS TRACING : 05/30/2015 17.13 Compared to prior tracing no significant change DOCTOR: Unruly Navarro Interpretating Date/Time 11/16/2016 13:23:43
[2016-11-16] MEDS ORDERED: FLUT50SP EACH NARE (13:41)
--- NOTE | 2016-11-16 13:41 | HHI.DCPOC ---
Discharge Care Plan Diagnosis: (1) New onset seizure (2) Schizoaffective disorder Goals to Promote Your Health * To prevent worsening of your condition and complications * To maintain your health at the optimal level Directions to Meet Your Goals Take your medications as prescribed Follow your dietary instruction Follow activity as directed Keep your appointments as scheduled Take your immunizations and boosters as scheduled If your symptoms worsen call your PCP, if no PCP go to Urgent Care Center or Emergency Room Smoking is Dangerous to Your Health. Avoid second hand smoke Call the 24-hour hour crisis hotline for domestic abuse at Alejandra Wells MD R2 Nov 16, 2016 13:41 Brynn Jovel MD Nov 17, 2016 16:36
--- NOTE | 2016-11-16 14:41 | HHI.PR ---
Review/Management Daily Summary 11/16 doing well back to baseline, mri normal I was going to start him on anticonvulsant as eeg will be done only tomorrow he preferred not to start anticonvulsants unless eeg really abnormal Subjective Subjective Comments No acute events reported No headache No chest pain No dyspnea Active Medications Current Medications Medications (Trade) Dose Ordered Sig/Silvana Route Start Time Stop Time Status Last Admin (NS Flush) 2 ml UNSCH PRN IV FLUSH 11/15/16 16:15 (NS Flush) 2 ml BID IV FLUSH 11/15/16 21:00 (Ativan Inj) 2 mg UNSCH PRN IV 11/15/16 16:15 (Zofran Inj) 4 mg Q6H PRN IV 11/15/16 16:15 (Tylenol) 650 mg Q6H PRN PO 11/15/16 20:45 (Catapres) 0.1 mg Q6H PRN PO 11/15/16 20:45 (Flonase Robert Spr) 2 spray DAILY EACH NARE 11/16/16 10:30 (Cogentin Inj) 1 mg HS IM 11/16/16 21:00 (Haldol) 5 mg BID PO 11/16/16 12:45 11/16/16 13:16 (ZyPREXA) 20 mg DAILY PO 11/16/16 14:00 11/16/16 13:16 (PROzac) 40 mg DAILY PO 11/16/16 13:00 11/16/16 13:16 Allergies Allergies Coded Allergies No Known Allergies (Unverified11/15/16) Exam I&O / VS 11/15/16 11/15/16 11/16/16 15:00 23:00 07:00 Intake Total 740 ml Balance 740 ml Intake Oral 240 ml IV Total 500 ml Vital Signs Date Time Temp Pulse Resp B/P Pulse Ox O2 Delivery O2 Flow Rate FiO2 11/16/16 13:00 98.8 89 18 104/58 96 11/16/16 12:00 88 11/16/16 08:22 97.8 88 20 107/54 96 11/16/16 08:03 97 21 11/16/16 08:00 89 11/16/16 04:21 66 11/16/16 03:36 98.1 75 16 97/54 99 11/16/16 00:34 74 11/16/16 00:06 97.6 68 16 93/55 69 11/15/16 23:33 86 11/15/16 20:44 96 21 11/15/16 19:00 98.1 65 16 102/61 97 110/62 119/64 11/15/16 16:17 76 18 113/65 99 Objective Radiology Results Last [address] 11/15/16 0000 Signed Impressions: Service Date/Time: Tuesday, November 15, 2016 13:10 - CONCLUSION: Negative for an acute process. Gucci Loaiza MD FACR Carotid Artery Ultrasound 11/15/16 0000 Signed Impressions: Service Date/Time: Tuesday, November 15, 2016 22:12 - CONCLUSION: No hemodynamically significant stenosis in either carotid artery. Chirag Dent MD Brain MRI 11/15/16 0000 Signed Impressions: Service Date/Time: Tuesday, November 15, 2016 17:46 - CONCLUSION: Negative MRI of the brain with and without contrast. Zoran Kruger MD Micro and Labs Laboratory Tests Test 11/15/16 11/16/16 19:46 05:05 Troponin I LESS THAN 0.02 LESS THAN 0.02 Salicylates Level 1.8 White Blood Count 8.9 Red Blood Count 3.74 Hemoglobin 11.8 Hematocrit 33.9 Mean Corpuscular Volume 90.7 Mean Corpuscular Hemoglobin 31.5 Mean Corpuscular Hemoglobin 34.8 Concent Red Cell Distribution Width 13.0 Platelet Count 200 Mean Platelet Volume 10.2 Neutrophils (%) (Auto) 67.4 Lymphocytes (%) (Auto) 20.2 Monocytes (%) (Auto) 9.6 Eosinophils (%) (Auto) 2.6 Basophils (%) (Auto) 0.2 Neutrophils # (Auto) 6.0 Lymphocytes # (Auto) 1.8 Monocytes # (Auto) 0.9 Eosinophils # (Auto) 0.2 Basophils # (Auto) 0.0 CBC Comment DIFF FINAL Differential Comment Sodium Level 144 Potassium Level 3.7 Chloride Level 109 Carbon Dioxide Level 29.5 Anion Gap 6 Blood Urea Nitrogen 13 Creatinine 0.90 Estimat Glomerular Filtration 91 Rate Random Glucose 77 Calcium Level 7.9 Samantha Go MD Nov 16, 2016 14:41
[2016-11-16 18:26] LABS: HEMATOCRIT 33.8 % (39.0-51.0); REVIEW FLAG FINAL
[2016-11-16] MEDS ORDERED: BENZTROPINE MESYLATE 2 MG/2 ML VIAL IM SCH (21:00)
[2016-11-17] VITALS (7 sets, daily range): BP systolic 94–111; BP diastolic 52–66; PULSE 64–96; RESP 16–20; TEMP 97.6–98.2; O2SAT 93–97
[2016-11-17] MEDS: SODIUM CHLORIDE 0.9% FLUSH 10 ML FLUSH IV FLUSH SCH (09:00)
--- NOTE | 2016-11-17 09:58 | EKG ---
Date Performed: 11/16/2016 Time Performed: 13:50:59 PTAGE: 46 years EKG: Sinus rhythm POSSIBLE RIGHT VENTRICULAR CONDUCTION DELAY BORDERLINE ECG PREVIOUS TRACING : 11/16/2016 09.03 DOCTOR: Han Cunha Interpretating Date/Time 11/17/2016 09:58:29
[2016-11-17] MEDS: FLUoxetine HCL 20 MG CAP PO SCH (10:10)
[2016-11-17] MEDS: OLANZapine 10 MG TAB PO SCH (10:10)
[2016-11-17] MEDS: FLUTICASONE PROPIONATE 50 MCG/ACT 16 GM NASAL SPRAY EACH NARE SCH (10:10)
[2016-11-17] MEDS: HALOPERIDOL 5 MG TAB PO SCH (10:10)
--- NOTE | 2016-11-17 10:11 | HHI.FPPN ---
Subjective Remarks Patient was seen and evaluated this morning. He states that he feels well and has no new concerns/complains. He denies dizziness, chest pain, heart palpitations, shortness of breath, lower extremity edema and nausea/vomiting. Patient refused Benztropine and when asked, said the medication had been discontinued by a physician about two weeks ago . (Radha Rosenberg MD R1) Objective Vitals Vital Signs Date Time Temp Pulse Resp B/P Pulse Ox O2 Delivery O2 Flow Rate FiO2 11/17/16 08:15 98.0 77 16 111/65 95 11/17/16 07:24 66 11/17/16 04:32 97.6 65 18 94/52 93 11/17/16 04:00 64 11/16/16 23:39 98.1 64 20 97/55 93 11/16/16 21:50 71 11/16/16 21:50 71 11/16/16 19:26 98.0 84 18 104/64 93 11/16/16 13:00 98.8 89 18 104/58 96 11/16/16 12:00 88 I/O 11/16/16 11/16/16 11/16/16 11/17/16 11/17/16 11/17/16 07:00 15:00 23:00 07:00 15:00 23:00 Intake Total 740 ml 800 ml Balance 740 ml 800 ml Intake Oral 240 ml IV Total 500 ml 800 ml # Voids 1 (Radha Rosenberg MD R1) Result Diagram: 11/16/16 1800 11/16/16 0505 Imaging Last Impressions Head CT 11/15/16 0000 Signed Impressions: Service Date/Time: Tuesday, November 15, 2016 13:10 - CONCLUSION: Negative for an acute process. Gucci Loaiza MD FACR Carotid Artery Ultrasound 11/15/16 0000 Signed Impressions: Service Date/Time: Tuesday, November 15, 2016 22:12 - CONCLUSION: No hemodynamically significant stenosis in either carotid artery. Chirag Dent MD Brain MRI 11/15/16 0000 Signed Impressions: Service Date/Time: Tuesday, November 15, 2016 17:46 - CONCLUSION: Negative MRI of the brain with and without contrast. Zoran Kruger MD Objective Remarks GENERAL: Well-appearing, well-nourished white male. His nails are painted black. He appears to be in no apparent distress. SKIN: Warm and dry. No obvious rashes or bruises. HEAD: Atraumatic. Normocephalic. EYES: Pupils equal and round. No scleral icterus. No injection or drainage. ENT: No nasal bleeding or discharge. Mucous membranes pink and moist. Suspected bite johnston on the anterolateral tongue bilaterally, not bleeding at this time. NECK: Trachea midline. No JVD. CARDIOVASCULAR: Regular rate and rhythm. No murmurs, gallops or rubs. RESPIRATORY: No accessory muscle use. Clear to auscultation without crackles or rhonchi. Breath sounds equal bilaterally. GASTROINTESTINAL: Abdomen soft, non-tender, nondistended. Bowel sounds are present and normal. MUSCULOSKELETAL: Extremities without clubbing, cyanosis, or edema. No obvious deformities. NEUROLOGICAL: Awake and alert. No obvious cranial nerve deficits. Motor and strength grossly within normal limits. Normal speech. PSYCHIATRIC: Appropriate mood and affect; insight and judgment normal. Does not appear to be responding to internal stimuli. Procedures EEG and Echo today. Medications and IVs Current Medications Medications (Trade) Dose Ordered Sig/Silvana Route Start Time Stop Time Status Last Admin (NS Flush) 2 ml UNSCH PRN IV FLUSH 11/15/16 16:15 (NS Flush) 2 ml BID IV FLUSH 11/15/16 21:00 11/16/16 20:55 (Ativan Inj) 2 mg UNSCH PRN IV 11/15/16 16:15 (Zofran Inj) 4 mg Q6H PRN IV 11/15/16 16:15 (Tylenol) 650 mg Q6H PRN PO 11/15/16 20:45 (Catapres) 0.1 mg Q6H PRN PO 11/15/16 20:45 (Flonase Robert Spr) 2 spray DAILY EACH NARE 11/16/16 10:30 11/17/16 10:10 (Cogentin Inj) 1 mg HS IM 11/16/16 21:00 (Haldol) 5 mg BID PO 11/16/16 12:45 11/17/16 10:10 (ZyPREXA) 20 mg DAILY PO 11/16/16 14:00 11/17/16 10:10 (PROzac) 40 mg DAILY PO 11/16/16 13:00 11/17/16 10:10 (Radha Rosenberg MD R1) Urinary Catheter: No (Radha Rosenberg MD R1) Vascular Central Line Catheter: No (Radha Rosenberg MD R1) A/P Assessment and Plan 46-year-old male with history of schizoaffective disorder who was admitted to observation after possible new onset seizure. Discharge Planning EEG and Echo have been ordered. [facility]charge to [facility] after procedural/imaging reports are available and plan has been made. (Radha Rosenberg MD R1) Attending Attestation Patient seen and examined Case reviewed and discussed. Agree with plan of care as discussed with me and documented in the resident note. (Brynn Jovel MD) Problem List: (1) New onset seizure Status: Acute Plan: Patient with new onset seizure 1, witnessed at his assisted living facility. Unclear etiology Vital signs continue to be within normal limits. Neurology consulted for evaluation of new onset seizures * Waiting for MRI and EEG results before making recommendations. EEG ordered. Echo ordered. Hospital Course He was admitted for observation and further workup. Head CT negative MRI negative Syncope work-up initiated: * Troponin x 2 negative * Serial EKGs grossly normal * Carotic US negative ED Course: Presented via EMS for witnessed likely tonic-clonic seizure Per history offered by EMS, possibly was tonic-clonic in nature On admission, mildly postictal during interview, though symptoms were mild Workup in the ED included routine lab work and urine drug screen unremarkable aside from mildly elevated TSH Vital signs are grossly within normal limits on admission and patient is on room air (2) Schizoaffective disorder Status: Chronic Plan: Chronic schizoaffective disorder per patient. Patient refused Benztropine; he states that medication had been discontinued by a physician approximately two weeks ago. Assisted living facility was contacted on 11/16 to complete medication reconciliation. Patient was reported to be on followings medications: Benztropine 1 mg IM HS Fluoxetine 40 mg PO daily Haloperidol 5 mg PO BID Olanzapine 20 mg PO daily Home medications continued. (3) Anemia Status: Acute Plan: Stable. Hgb 12.9 -> 11.8-> 11.5L Unclear etiology No active source of bleeding identified at this time. Monitor H&H. (4) Chest pain of uncertain etiology Status: Resolved Plan: Patient denies chest pain 11/16-11/17. Hospital Course Patient reported chest tightness a few days ago. Likely not related to his symptoms. Troponin x2 negative. EKG shows no evidence of ischemic events. (5) Fluids/Electrolytes/Nutrition/Prophylaxis Status: Acute Plan: Fluids: * Tolerating PO * NS 1,000 at 1,000 mls/hr discontinued 11/16 Electrolytes: * Monitor and replace as needed * Calcium 7.9 on 11/16 - monitor at this time Nutrition: * Heart healthy diet DVT Prophylaxis: * Early ambulation GI Prophylaxis: * Not indicated (Radha Rosenberg MD R1) Problem Qualifiers (1) Anemia: Qualified Code: D64.9 - Anemia, unspecified type Radha Rosenberg MD R1 Nov 17, 2016 10:10 Brynn Jovel MD Nov 18, 2016 15:35
--- NOTE | 2016-11-17 11:40 | HHI.PR ---
Review/Management Daily Summary 11/16 doing well back to baseline, mri normal I was going to start him on anticonvulsant as eeg will be done only tomorrow he preferred not to start anticonvulsants unless eeg really abnormal 11/17 no seizure recurrence eeg in progress, will review and discuss recommendation see yest note Subjective Subjective Comments No acute events reported No headache No chest pain No dyspnea Active Medications Current Medications Medications (Trade) Dose Ordered Sig/Silvana Route Start Time Stop Time Status Last Admin (NS Flush) 2 ml UNSCH PRN IV FLUSH 11/15/16 16:15 (NS Flush) 2 ml BID IV FLUSH 11/15/16 21:00 11/16/16 20:55 (Ativan Inj) 2 mg UNSCH PRN IV 11/15/16 16:15 (Zofran Inj) 4 mg Q6H PRN IV 11/15/16 16:15 (Tylenol) 650 mg Q6H PRN PO 11/15/16 20:45 (Catapres) 0.1 mg Q6H PRN PO 11/15/16 20:45 (Flonase Robert Spr) 2 spray DAILY EACH NARE 11/16/16 10:30 11/17/16 10:10 (Cogentin Inj) 1 mg HS IM 11/16/16 21:00 (Haldol) 5 mg BID PO 11/16/16 12:45 11/17/16 10:10 (ZyPREXA) 20 mg DAILY PO 11/16/16 14:00 11/17/16 10:10 (PROzac) 40 mg DAILY PO 11/16/16 13:00 11/17/16 10:10 Allergies Allergies Coded Allergies No Known Allergies (Unverified11/15/16) Exam I&O / VS 11/16/16 11/16/16 11/17/16 15:00 23:00 07:00 Intake Total 800 ml Balance 800 ml IV Total 800 ml # Voids 1 Vital Signs Date Time Temp Pulse Resp B/P Pulse Ox O2 Delivery O2 Flow Rate FiO2 11/17/16 08:15 98.0 77 16 111/65 95 11/17/16 07:24 66 11/17/16 04:32 97.6 65 18 94/52 93 11/17/16 04:00 64 11/16/16 23:39 98.1 64 20 97/55 93 11/16/16 21:50 71 11/16/16 21:50 71 11/16/16 19:26 98.0 84 18 104/64 93 11/16/16 13:00 98.8 89 18 104/58 96 11/16/16 12:00 88 Objective Micro and Labs Laboratory Tests Test 11/16/16 18:00 Hemoglobin 11.5 Hematocrit 33.8 Samantha Go MD Nov 17, 2016 11:40
--- NOTE | 2016-11-17 11:50 | HHI.DS ---
Radha Rosebnerg MD R1 11/17/16 1150: Discharge Summary Admission Date Nov 15, 2016 at 14:05 Discharge Date: Nov 17, 2016 Admitting Diagnosis New onset seizure (1) New onset seizure Diagnosis: Principal Plan: Patient with new onset seizure 1, witnessed at his assisted living facility. Unclear etiology (2) Schizoaffective disorder Diagnosis: Secondary Plan: Chronic schizoaffective disorder per patient. (3) Anemia Diagnosis: Secondary Plan: Stable. Hgb 12.9 -> 11.8-> 11.5L Unclear etiology No active source of bleeding identified at this time. [facility] Neurology Procedures EEG Brief History Patient is a 46M with a history of schizoaffective disorder who presents via EMS after new onset seizure. He states he stood up, feeling dizzy, then falling down. He doesn't remember what happened after that, next thing he remembers is getting into ambulance. Dizziness episodes have occurred a couple of times daily over the last four months. Dizziness is only occurred upon standing. Witnesses at the scene note the patient had total body jerking and note that he had tongue biting and urinary incontinence during the episode. It is unclear how long the episode lasted. There have been no witnessed recurrences. He states he feels like he has slight memory problems since the episode, which is new to him. He notes he has had pressure in his head for four months as well. He reports this is his first syncopal episode. He reports this is his first possible seizure. He denies having had blurry vision or double vision prior to or during the episode. The patient states he has had pressure in his head for 4 months ( in conjunction with the dizziness spells) and he states the pressure got worse just prior to him having his syncopal episode today. He was eating lunch just prior to the episode. Doses feeling a little weak prior to the episode but feels fine now. He did not have any diaphoresis or chest pain. He did note chest tightness occurring over course of a few minutes a couple days ago. It occurred while lying down without any significant exertion. It resolved spontaneously. Of note, patient states he is on Haldol, Olanzapine, and Prozac. Other medications or possibly discontinued in the recent past. He gets his medications from [facility]. 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 He states that he underwent radiation therapy and has been lost to follow-up for the last 2+ years. Note that his vision has gotten worse recently. He denies any weight loss. CBC/BMP: 11/16/16 1800 11/16/16 0505 Significant Findings Laboratory Tests Test 11/15/16 11/15/16 11/15/16 11/16/16 12:56 13:34 19:46 05:05 Red Blood Count 4.25 MIL/MM3 3.74 MIL/MM3 (4.50-5.90) (4.50-5.90) Hemoglobin 12.9 GM/DL 11.8 GM/DL (13.0-17.0) (13.0-17.0) Monocytes (%) (Auto) 8.3 % (0.0-8.0) 9.6 % (0.0-8.0) Monocytes % 9 % (0-8) Myelocytes 1 % (0-0) Platelet Morphology Comment ENLARGED (NORMAL) Ovalocytes 1+ (NORMAL) Estimat Glomerular Filtration 76 ML/MIN (>89) Rate Thyroid Stimulating Hormone 4.370 uIU/ML 3rd Gen (0.358-3.740) Urine Ketones TRACE mg/dL (NEG) Urine Occult Blood SMALL (NEG) Urine Sperm RARE (NONE) Troponin I LESS THAN 0.02 LESS THAN 0.02 NG/ML NG/ML (0.02-0.05) (0.02-0.05) Salicylates Level 1.8 MG/DL (2.8-20.0) Hematocrit 33.9 % (39.0-51.0) Chloride Level 109 MEQ/L (98-107) Calcium Level 7.9 MG/DL (8.5-10.1) Test 11/16/16 18:00 Hemoglobin 11.5 GM/DL (13.0-17.0) Hematocrit 33.8 % (39.0-51.0) Imaging Last Impressions Head CT 11/15/16 0000 Signed Impressions: Service Date/Time: Tuesday, November 15, 2016 13:10 - CONCLUSION: Negative for an acute process. Gucci Loaiza MD FACR Carotid Artery Ultrasound 11/15/16 0000 Signed Impressions: Service Date/Time: Tuesday, November 15, 2016 22:12 - CONCLUSION: No hemodynamically significant stenosis in either carotid artery. Chirag Dent MD Brain MRI 11/15/16 0000 Signed Impressions: Service Date/Time: Tuesday, November 15, 2016 17:46 - CONCLUSION: Negative MRI of the brain with and without contrast. Zoran Kruger MD PE at Discharge GENERAL: Well-appearing, well-nourished white male. His nails are painted black. He appears to be in no apparent distress. SKIN: Warm and dry. No obvious rashes or bruises. HEAD: Atraumatic. Normocephalic. EYES: Pupils equal and round. No scleral icterus. No injection or drainage. ENT: No nasal bleeding or discharge. Mucous membranes pink and moist. Suspected bite [place] on the anterolateral tongue bilaterally, not bleeding at this time. NECK: Trachea midline. No JVD. CARDIOVASCULAR: Regular rate and rhythm. No murmurs, gallops or rubs. RESPIRATORY: No accessory muscle use. Clear to auscultation without crackles or rhonchi. Breath sounds equal bilaterally. GASTROINTESTINAL: Abdomen soft, non-tender, nondistended. Bowel sounds are present and normal. MUSCULOSKELETAL: Extremities without clubbing, cyanosis, or edema. No obvious deformities. NEUROLOGICAL: Awake and alert. No obvious cranial nerve deficits. Motor and strength grossly within normal limits. Normal speech. PSYCHIATRIC: Appropriate mood and affect; insight and judgment normal. Does not appear to be responding to internal stimuli. Hospital Course New Onset Seizure: Hospital Course Patient was admitted for observation and further workup. Head CT negative MRI negative EEG - Abnormal: Some mild background slowing may be due to mild encephalopathic state versus medicine effect. * Neurology decided against starting anti-seizure medication at this time. Syncope work-up: * Echo normal * Troponin x 2 negative * Serial EKGs grossly normal * Carotic US negative ED Course * Presented via EMS for witnessed likely tonic-clonic seizure * Per history offered by EMS, possibly was tonic-clonic in nature * On admission, mildly postictal during interview, though symptoms were mild * Workup in the ED included routine lab work and urine drug screen unremarkable aside from mildly elevated TSH * Vital signs are grossly within normal limits on admission and patient is on room air Schizoaffective Disorder Hospital Course * Home medications were continued on 11/16. Patient refused Benztropine; he states that medication had been discontinued by a physician approximately two weeks ago. Anemia Hospital Course * Patient remained asymptomatic. * Hemoglobin and hematocrit were monitored closely. Chest Pain Hospital Course Patient reported chest tightness a few days ago. Asymptomatic throughout hospital stay. Likely not related to his symptoms. Troponin x2 negative. EKG shows no evidence of ischemic events. Pt Condition on Discharge: Stable Discharge Disposition: ACLF/THONG Discharge Instructions DIET: Follow Instructions for: As Tolerated, No Restrictions Other Activity Instructions: Seizure precautions: NO driving, swimming and bathing alone. Follow up Referrals: Neurology - 1 Week Ophthalmology PCP Follow-up - 1 Week New Medications: Fluticasone Nasal [place] (Fluticasone Nasal [place]) 50 Mcg/Act Naspr 2 SPRAY EACH NARE DAILY #1 BOTTLE Continued Medications: Benztropine Inj (Cogentin Inj) 1 Mg/Ml Inj 1 MG IM HS VIAL Fluoxetine (Prozac) 40 Mg Cap 40 MG PO DAILY #30 Ref 0 CAP Haloperidol (Haloperidol) 5 Mg Tab 5 MG PO BID Ref 0 TAB Olanzapine (Zyprexa) 20 Mg Tab 20 MG PO DAILY #30 Ref 0 TAB Brynn Jovel MD 11/18/16 1537: Discharge Summary CBC/BMP: 11/16/16 1800 11/16/16 0505 Discharge Instructions Follow up Referrals: Neurology - 1 Week Ophthalmology PCP Follow-up - 1 Week New Medications: Fluticasone Nasal [place] (Fluticasone Nasal [place]) 50 Mcg/Act Naspr 2 SPRAY EACH NARE DAILY #1 BOTTLE Continued Medications: Benztropine Inj (Cogentin Inj) 1 Mg/Ml Inj 1 MG IM HS VIAL Fluoxetine (Prozac) 40 Mg Cap 40 MG PO DAILY #30 Ref 0 CAP Haloperidol (Haloperidol) 5 Mg Tab 5 MG PO BID Ref 0 TAB Olanzapine (Zyprexa) 20 Mg Tab 20 MG PO DAILY #30 Ref 0 TAB Radha Rosenberg MD R1 Nov 17, 2016 11:50 Brynn Jovel MD Nov 18, 2016 15:37
--- NOTE | 2016-11-17 16:03 | MG ---
cc: MELISA ZEE M.D. Lab No: Date: 11/17/2016 Age: Sex: M Race: EEG NUMBER [id number] DATE OF 1970, 46 years old[address] PHYS[address]IAN [address] Martinez ROOM [id number] With hyperventilation and photic stimulation. Good effort to the hyperventilation. Awake, drowsy study. The patient was sitting when he fell forward and had a seizure. Has had some pressure for the last three or four months in his head. He has a history of left eye melanoma. Seizure. Syncope. Depression. Schizophrenia. MEDICATIONS 1. Cogentin. 2. Zyprexa. 3. Present. 4. Haldol. DESCRIPTION OF RECORD Does have some background slowing predominately 5-6 Hz rhythm. A lot of eye movement artifact. EKG does look sinus. Photic stimulation does elicit a posterior driving response. Hyperventilation was then performed without any significant alteration in the background. Some artifact but overall symmetrical background. Some mild slowing. IMPRESSION Abnormal EEG due to some mild background slowing may be due to mild encephalopathic state versus medicine effect. Clinical correlation. MD JULIA Robles/PK /3:38 PM /3:57 PM
--- NOTE | 2016-11-17 16:35 | ECHRPT ---
Indication: Paroxysmal atrial fibrillation, R/O source of syncope CONCLUSIONS Normal left ventricular size and wall thickness. The left ventricular systolic function is normal wi th an estimated ejection fraction in the range of 50-55%. Left ventricular diastolic function parameters a re normal. BP: / HR: Rhythm: Sinus MEASUREMENTS (Male / Female) Normal Values Technical Quality:Good 2D ECHO LV Diastolic Diameter PLAX 4.6 cm 4.2 - 5.9 / 3.9 - 5.3 cm LV Systolic Diameter PLAX 3.5 cm IVS Diastolic Thickness 0.9 cm 0.6 - 1.0 / 0.6 - 0.9 cm LVPW Diastolic Thickness 0.9 cm 0.6 - 1.0 / 0.6 - 0.9 cm LV Relative Wall Thickness 0.4 RV Internal Dim ED PLAX 2.0 cm LA Systolic Diameter LX 3.0 cm 3.0 - 4.0 / 2.7 - 3.8 cm M-MODE Aortic Root Diameter MM 3.0 cm AV Cusp Separation MM 2.1 cm DOPPLER Mitral E Point Velocity 78.0 cm/s Mitral A Point Velocity 86.4 cm/s Mitral E to A Ratio 0.9 LV E' Lateral Velocity 16.4 cm/s Mitral E to LV E' Lateral Ratio 4.8 LV E' Septal Velocity 8.8 cm/s Mitral E to LV E' Septal Ratio 8.9 TR Peak Velocity 274.0 cm/s TR Peak Gradient 30.0 mmHg FINDINGS LEFT VENTRICLE Normal left ventricular size and wall thickness. The left ventricular systolic function is normal wi th an estimated ejection fraction in the range of 50-55%. Left ventricular diastolic function parameters a re normal. RIGHT VENTRICLE Normal right ventricular size and systolic function. LEFT ATRIUM The left atrial size is normal. RIGHT ATRIUM The right atrial size is normal. ATRIAL SEPTUM Normal atrial septal thickness without atrial level shunting by limited color doppler interrogation. AORTA The aortic root and proximal ascending aorta are normal in size on limited imaging. MITRAL VALVE Structurally normal mitral valve. No mitral valve stenosis or regurgitation. AORTIC VALVE Trileaflet aortic valve. No aortic valve stenosis or regurgitation. TRICUSPID VALVE The estimated pulmonary arterial pressure is 35 mmHg. PULMONARY VALVE The pulmonary valve is not well visualized. VESSELS The inferior vena cava is normal in size. PERICARDIUM No pericardial effusion. Han Cunha MD, FACC (Electronically Signed) Final Date:17 November 2016 16:34
[2016-11-17] MEDS ORDERED: ENOXAPARIN SODIUM 40 MG/0.4 ML SYRINGE SQ SCH (17:00)
--- NOTE | 2016-11-18 18:30 | EKG ---
Date Performed: 11/16/2016 Time Performed: 09:03:13 PTAGE: 46 years EKG: Sinus rhythm POSIBLE RIGHT VENTRICULAR CONDUCTION DELAY [RSR (QR) IN V1/V2] BORDERLINE ECG PREVIOUS TRACING : 11/15/2016 12.53 Compared to prior tracing no significant change DOCTOR: Giovana Norton Interpretating Date/Time 11/18/2016 18:28:27
== END 2016-11-17 18:07 ==
LOC: NEPE 12:28 → NEDA 14:05 → NEPFCDU 17:26
PROVIDERS: ADMIT Family Medicine; ATTEND Family Medicine
DX: R56.9 Unspecified convulsions (principal); F25.9 Schizoaffective disorder, unspecified; R07.89 Other chest pain; D64.9 Anemia, unspecified; R42 Dizziness and giddiness; R32 Unspecified urinary incontinence; R55 Syncope and collapse; R53.1 Weakness; R00.0 Tachycardia, unspecified; F41.9 Anxiety disorder, unspecified; R94.01 Abnormal electroencephalogram [EEG]; R63.5 Abnormal weight gain; F32.9 Major depressive disorder, single episode, unspecified; Z59.0 Homelessness; Z79.899 Other long term (current) drug therapy; Z85.820 Personal history of malignant melanoma of skin; Z92.3 Personal history of irradiation; W19.XXXA Unspecified fall, initial encounter
CPT/HCPCS: 70450; 70553; 80048; 80053; 80307; 81001; 83735; 84146; 84443; 84484; 85007; 85014; 85018; 85025; 85027; 93005; 93306; 93880; 95819; 97161; 99285; A9579; G0378; G8987; G8988; G8989; J7030

== ENCOUNTER 2017-09-06 10:42 | Emergency (ER) | payer MEDICAID, OTHER ==
[~2017-09-06] VITALS: Ht 180.3 cm; Wt 68.0 kg
[~2017-09-06 10:42] MED LIST changes: -FLUO-1 PO; +FLUT50SP EACH NARE; -HALD50IN IM; +HALO5TAB PO; +PROZ40CA PO; -RISP.25 PO; +ZYPR20TA PO
[2017-09-06 10:53] VITALS: BP 116/65; PULSE 91; RESP 18; TEMP 98.2; O2SAT 99
--- NOTE | 2017-09-06 11:39 | PD ---
HPI . Worms Chief Complaint: Medical Clearance Time Seen by Provider: 11:17 Travel History International Travel<30 days: No Contact w/Intl Traveler<30days: No Traveled to known affect area: No History of Present Illness HPI This patient presents stating that he has worms under his skin. They are in various locations. They have been there for about 3 weeks. He states that she cannot see them. He denies any other complaints. He states that he had this once before when he was in [facility]. On review of his records, he has a history of paranoid schizophrenia. History Past Medical Histgory Hx Cancer: Yes (L EYE) Hx Chemotherapy: No Hx Radiation Therapy: Yes Social History Alcohol Use: Yes (SOCIALLY) Tobacco Use: Yes (1/2 PPD) Allergies-Medications (Allergen,Severity, Reaction): Coded Allergies: No Known Allergies (Unverified , 11/15/16) Reported Meds & Prescriptions Reported Meds & Active Scripts Active Fluticasone Nasal [place] 50 Mcg/Act Naspr 2 [place] EACH NARE DAILY Reported Zyprexa (Olanzapine) 20 Mg Tab 20 Mg PO DAILY Haloperidol 5 Mg Tab 5 Mg PO BID Prozac (Fluoxetine HCl) 40 Mg Cap 40 Mg PO DAILY Cogentin Inj (Benztropine Mesylate) 1 Mg/Ml Inj 1 Mg IM HS Review of Systems Except as stated in HPI: all other systems reviewed are Neg Physical Exam Narrative GENERAL: Awake and alert and in no acute distress. SKIN: Warm and dry. He has no unusual lesions noted on skin exam. HEAD: Normocephalic/atraumatic. EYES: Pupils are equal. Extraocular movements are intact. NECK: Normal range of motion. CARDIOVASCULAR: Regular rate and rhythm. RESPIRATORY: Nonlabored respirations. MUSCULOSKELETAL: Atraumatic. NEUROLOGICAL: Nonfocal. PSYCHIATRIC: Appropriate mood and affect. 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 The patient was given the option of receiving additional care, but declined. Patient was given options for additional community resources from which to obtain care. The Patient Has Been advised to seek medical attention for their presenting complaint. The patient has been advised to return to the ER at any time if an emergent condition develops. Primary Impression: Encounter for medical screening examination Condition: Brynn Tavarez MD Sep 06, 2017 11:39
== END 2017-09-06 11:59 | disposition left against medical advice (07) ==
LOC: NEPD 10:42
DX: Z03.89 Encounter for observation for other suspected diseases and conditions ruled out (principal)
CPT/HCPCS: 99281

== ENCOUNTER 2017-11-07 20:03 | Inpatient (IN) ==
[2017-11-13] MEDS ORDERED: Aluminum/Magnesium/Simethacone Susp 30 ML UDC PO PRN (07:59)
[2017-11-13] MEDS ORDERED: Acetaminophen 325 MG Tablet PO PRN (08:00)
[2017-11-13] MEDS ORDERED: FLUoxetine 20 MG Capsule PO SCH (09:00)
[2017-11-13] MEDS ORDERED: OLANZapine 20 MG Tab.Rapdis PO SCH (09:00)
--- NOTE | 2017-11-13 12:52 | P.PNPSY ---
Subjective Remarks: Patient was seen and case discussed with nursing. Patient remains irritable and very oppositional. He is refusing all labs and all medications. He has poor insight into his admission and his mental health. Seclusive to self. Likely responding to internal stimuli Mental Status Examination Appearance: Disheveled Consciousness: Alert Orientation: x4 Motor Activity: Normal gait Speech: Unremarkable Language: Adequate Fund of Knowledge: Adequate Attention and Concentration: Adequate Memory: Unremarkable Mood: Irritable Affect: Irritable, Labile Thought Process & Associations: Intact Thought Content: Appropriate Hallucination Type: Other (Likely responding) Delusion Type: Other (Likely responding) Suicidal Ideation: No Suicidal Plan: No Suicidal Intention: No Homicidal Ideation: No Homicidal Plan: No Homicidal Intention: No Insight: Poor Judgment: Poor Assessment and Plan - Assessment (1) Paranoid schizophrenia Code(s): F20.0 - Paranoid schizophrenia Status: Acute - Plan Plan: Estimated LOS: [] days Continue current treatment plan Justification for Continued Inpatient Stay: Patient would decompensate in a less restrictive setting
[2017-11-13] MEDS ORDERED: OLANZapine 10 MG ODT Tablet PO SCH (21:00)
--- NOTE | 2017-11-14 14:06 | P.PNPSY ---
Subjective Remarks: Patient seen and examined with nurse. Chart reviewed. Case discussed with nursing staff. Patient presented no real behavioral problem but continuing to refuse laboratories and to refuse to sign for medications. On my examination today, the patient presents as somewhat oppositional and guarded. He is secluding in his room although he is coming out for meals. He continues to refuse to provide consent for medications. He denies any SI or HI. Denies any AVH. He is somewhat disheveled and malodorous and it does not appear that he has showered today. I have encouraged him to bathe. No physical complaints. Vital Signs Temp Pulse Resp BP Pulse Ox 11/14/17 05:47 97.6 F 79 16 96/60 L 99 11/13/17 18:00 97.4 F L 71 16 118/67 97 Labs reviewed. No new labs. Review of Systems All other systems reviewed negative except as stated in HPI Mental Status Examination Appearance: Disheveled, Malodorous Consciousness: Alert Orientation: Person, Place (At least) Motor Activity: Other (No motor abnormalities noted) Speech: Unremarkable Language: Adequate Fund of Knowledge: Adequate Attention and Concentration: Adequate Memory: Unremarkable Mood: Oppositional, Irritable Affect: Irritable Thought Process & Associations: Intact Thought Content: Appropriate Hallucination Type: None Delusion Type: Other (Guarded) Suicidal Ideation: No Suicidal Plan: No Suicidal Intention: No Homicidal Ideation: No Homicidal Plan: No Homicidal Intention: No Insight: Poor Judgment: Poor Assessment and Plan - Assessment (1) Paranoid schizophrenia Code(s): F20.0 - Paranoid schizophrenia Status: Acute - Plan Plan: Psychotropic medications are on hold for lack of consent. Continue to monitor on the inpatient unit. Continue other medications and care as ordered. Justification for Continued Inpatient Stay: Risk for decompensation in less restrictive environment Discharge Planning: Pending psychiatric stabilization
--- NOTE | 2017-11-15 10:26 | P.PNPSY ---
Subjective Remarks: Patient seen and examined with nurse. Chart reviewed. Case discussed with nursing staff who reports patient is disheveled and responding to internal stimuli. Case discussed in treatment team. Counselor reinforces that the patient is not welcome to return to his facility at this time as he is not compliant with psychotropic medications. On my exam, the patient continues to refuse to sign consent for medications and likewise refuses to provide any contact information for anyone to serve as health care surrogate. Counselor moreover has been unsuccessful in identifying an alternate healthcare surrogate. Patient denies any SI or HI. He denies any AVH. He is fairly guarded and paranoid. We discuss the situation regarding his psychotropic medications. The patient becomes quite upset when we discussed the possibility of starting a long-acting injectable antipsychotic once a guardian advocate has been appointed. He says that he had a HOWELL while in residential in the past and this affected his eyes because of a childhood history of ophthalmic cancer. However , the truth value of this report seems questionable as patient cannot recall the agent used or the residential and backpedals on the whole matter when questioned. He seems resistant to psychotropic medication treatment generally. After we have departed, he slams his door and yells out "asshole," and I believe this is directed at this provider. No physical complaints. Vital Signs Temp Pulse Resp BP 11/15/17 06:03 97.9 F 76 18 96/56 L Labs reviewed. No new labs. Review of Systems All other systems reviewed negative except as stated in HPI Mental Status Examination Appearance: Disheveled Consciousness: Alert, Vigilant Orientation: Person, Place (At least) Motor Activity: Other (No motor abnormalities noted) Speech: Unremarkable Language: Adequate Fund of Knowledge: Adequate Attention and Concentration: Adequate Memory: Unremarkable Mood: Oppositional, Irritable Affect: Irritable Thought Process & Associations: Intact Thought Content: Preoccupations Hallucination Type: Other (Internally preoccupied) Delusion Type: Other (Guarded) Suicidal Ideation: No Suicidal Plan: No Suicidal Intention: No Homicidal Ideation: No Homicidal Plan: No Homicidal Intention: No Insight: Poor Judgment: Poor Assessment and Plan - Assessment (1) Paranoid schizophrenia Code(s): F20.0 - Paranoid schizophrenia Status: Acute - Plan Plan: Psychotropic medications remain on hold for lack of consent. We will await the hopeful appointment of Guardian advocate at [facility] on . Continue to monitor on the inpatient unit. Continue other medications and care as ordered. Justification for Continued Inpatient Stay: Suspected impairment in reality construction. Risk for decompensation in less restrictive environment. Discharge Planning: Return to facility once psychiatrically stable.
--- NOTE | 2017-11-16 10:45 | P.PNPSY ---
Subjective Remarks: Patient seen and examined with nurse. Chart reviewed. Case discussed with nursing staff. Per nursing staff, patient is neglectful of personal hygiene. On my exam, patient is fairly malodorous. He remains guarded. He denies AVH but appears internally stimulated. He denies suicidal ideation. Still refusing to provide any information regarding possible collateral/healthcare surrogate sources. No physical complaints. Vital Signs Temp Pulse Resp BP Pulse Ox 11/16/17 06:00 97.9 F 80 17 115/56 L 98 Labs reviewed. No new labs. I will check an updated BMP to ensure patient's decreased GFR is improved. Review of Systems All other systems reviewed negative except as stated in HPI (Limited: Psychotic , poor hist.) Mental Status Examination Appearance: Disheveled Consciousness: Alert, Vigilant Orientation: Person, Place (At least) Motor Activity: Other (No abnormal motor movements appreciated) Speech: Unremarkable Language: Adequate Fund of Knowledge: Adequate Attention and Concentration: Adequate Memory: Unremarkable Mood: Oppositional, Irritable Affect: Irritable Thought Process & Associations: Intact Thought Content: Preoccupations Hallucination Type: Other (Remains internally stimulated) Delusion Type: Paranoid, Other (Guarded) Suicidal Ideation: No Suicidal Plan: No Suicidal Intention: No Homicidal Ideation: No Homicidal Plan: No Homicidal Intention: No Insight: Poor Judgment: Poor Assessment and Plan - Assessment (1) Paranoid schizophrenia Code(s): F20.0 - Paranoid schizophrenia Status: Acute - Plan Plan: Psychotropic medications remain on hold for lack of consent. It is my hope that a guardian advocate will be appointed at the [place] tomorrow. At that point, I will most likely initiate an antipsychotic medication with available long-acting injectable as I fear that the patient's medication compliance in the community will be quite poor otherwise given his poor insight and judgment. Continue other medications and care as ordered in the meantime Justification for Continued Inpatient Stay: Impairment in reality construction. High risk for decompensation in less restrictive environment. Discharge Planning: Pending outcome of [place] Request Healthcare Surrogate/Guardian Advocate?: Yes
--- NOTE | 2017-11-17 10:59 | P.PNPSY ---
Subjective Remarks: Patient seen and case discussed with nursing staff. Chart reviewed. Per nursing staff, patient refused to shower and has been responding to internal stimuli. For me today, patient remains paranoid and internally stimulated. He is irritable. 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 I have spoken with [facility] guardian this afternoon and obtained consent for medications as outlined below. No physical complaints. Vital Signs Temp Pulse Resp BP Pulse Ox 11/17/17 06:00 97.6 F 93 H 17 113/58 L 100 Intake and Output 11/16/17 11/17/17 11/17/17 22:59 06:59 14:59 Other: Weight 62.1 kg Labs reviewed. No new labs. Review of Systems other (Limited ROS) Mental Status Examination Appearance: Disheveled Consciousness: Alert, Vigilant Orientation: Person, Place (At least) Motor Activity: Other (No abnormal motor movements noted) Speech: Unremarkable Language: Adequate Fund of Knowledge: Adequate Attention and Concentration: Adequate Memory: Unremarkable Mood: Irritable Affect: Irritable Thought Process & Associations: Intact Thought Content: Preoccupations Hallucination Type: Other (Remains internally stimulated) Delusion Type: Paranoid Suicidal Ideation: No Homicidal Ideation: No Insight: Poor Judgment: Poor Assessment and Plan - Assessment (1) Paranoid schizophrenia Code(s): F20.0 - Paranoid schizophrenia Status: Acute - Plan Plan: Start Risperdal M-Tabs 1mg p.o. BID with plans to titrate to effect. Haldol IM backup. Plan for Risperdal Consta or Invega Sustenna as long as Risperdal is well tolerated and efficacious. I will start some scheduled Cogentin and also make p.r.n. Cogentin available p.o. or IM to reduce risk of EPS. Patient reports a history of eye issues from [facility], ?possibly referring to oculogyric crisis, and I would like to minimize the risk of this occurring as this would likely be deleterious to medication adherence given patient's reticence to accept medications generally. Continue to monitor on the inpatient unit. Continue other medications and care as ordered. Justification for Continued Inpatient Stay: Medication changes. Impairment in reality construction. Risk for decompensation in less restrictive environment. Discharge Planning: Pending psychiatric stabilization Request Healthcare Surrogate/Guardian Advocate?: Yes
[2017-11-17] MEDS ORDERED: Haloperidol Inj 5 MG/ML Ampul IM PRN (14:50)
[2017-11-17] MEDS ORDERED: Benztropine 2 MG Tablet PO PRN (14:53)
[2017-11-17] MEDS ORDERED: Benztropine Inj 2 MG/2 ML Ampul IM PRN (14:53)
--- NOTE | 2017-11-17 17:53 | ECG ---
Date Performed: 11/17/2017 Time Performed: 17:26:08 PTAGE: 47 years EKG: Sinus rhythm NORMAL ECG No significant change from prior electrocardiogram. PREVIOUS TRACING : 11/16/2016 13.50 DOCTOR: Preston Foley Interpretating Date/Time 11/17/2017 17:51:06
[2017-11-17] MEDS: risperiDONE 1 MG ODT PO SCH (20:17)
[2017-11-18] MEDS: risperiDONE 1 MG ODT PO SCH ×2 (09:21→21:18)
[2017-11-18 11:09] LABS: Calcium 8.8 mg/dL (8.5-10.1); Carbon Dioxide 30.5 meq/L (21.0-32.0); Potassium 3.7 meq/L (3.5-5.1)
[2017-11-18 11:12] LABS: Chol/HDL Ratio 2.64 Ratio; HDL Cholesterol 54.8 mg/dL (40.0-60.0)
--- NOTE | 2017-11-18 12:18 | P.PNPSY ---
Subjective Remarks: Patient seen and examined with nurse. Chart reviewed. Case discussed with nursing staff. Patient did accept Risperdal yesterday evening and this morning. Case discussed in treatment team. On my examination today, the patient remains paranoid and guarded, no discernible improvement yet. He denies any SI or HI. Denies any AVH but appears internally stimulated. Denies side effects from medications. No hand tremor, no cogwheeling, no dystonia, no dyskinesia noted on exam. No physical complaints. Vital Signs Temp Pulse Resp BP Pulse Ox 11/18/17 05:12 97.5 F L 80 16 96/55 L 99 Laboratory Results - last 24 hr 11/18/17 11/18/17 09:40 09:40 Sodium 145 Potassium 3.7 Chloride 108 H Carbon Dioxide 30.5 Anion Gap 7 BUN 18 Creatinine 1.11 Estimated GFR 71 L Random Glucose 61 L Hemoglobin A1c 5.1 Calcium 8.8 Triglycerides 55 Cholesterol 145 LDL Cholesterol, Calc 79 HDL Cholesterol 54.8 Cholesterol/HDL Ratio 2.64 Labs reviewed. EKG normal sinus rhythm with QTC of 403 ms, not prolonged. Review of Systems All other systems reviewed negative except as stated in HPI (Limitation: Psychosis) Mental Status Examination Appearance: Disheveled Consciousness: Alert, Vigilant Orientation: Person, Place (At least) Motor Activity: Other (No motoric abnormalities noted) Speech: Unremarkable Language: Adequate Fund of Knowledge: Adequate Attention and Concentration: Adequate Memory: Unremarkable Mood: Irritable (A little less irritable today) Affect: Irritable Thought Process & Associations: Intact Thought Content: Preoccupations Hallucination Type: Other (Remains internally stimulated) Delusion Type: Paranoid Suicidal Ideation: No Suicidal Plan: No Suicidal Intention: No Homicidal Ideation: No Homicidal Plan: No Homicidal Intention: No Insight: Poor Judgment: Poor Assessment and Plan - Assessment (1) Paranoid schizophrenia Code(s): F20.0 - Paranoid schizophrenia Status: Acute - Plan Plan: Titrate Risperdal over the weekend to 2 mg twice daily to target psychosis. Continue to monitor on the inpatient unit. Continue other medications and care as ordered. Justification for Continued Inpatient Stay: Medication changes. Impairment in reality construction. High risk for decompensation in less restrictive environment. Discharge Planning: Pending psychiatric stabilization Request Healthcare Surrogate/Guardian Advocate?: Yes
[2017-11-18 13:10] LABS: Hemoglobin A1c 5.1 % (4.3-6.0)
[2017-11-19] MEDS: risperiDONE 1 MG ODT PO SCH ×2 (08:18→20:16)
--- NOTE | 2017-11-19 15:07 | P.PNPSY ---
Subjective Remarks: Pt seen and discussed with staff. He remains paranoid and delusional but has been less argumentative and irritable today. He remains isolative but is compliant with medications. Mental Status Examination Appearance: Disheveled Consciousness: Alert, Vigilant Orientation: Person, Place (At least) Motor Activity: Other (No motoric abnormalities noted) Speech: Unremarkable Language: Adequate Fund of Knowledge: Adequate Attention and Concentration: Adequate Memory: Unremarkable Mood: Irritable (A little less irritable today) Affect: Irritable Thought Process & Associations: Intact Thought Content: Preoccupations Hallucination Type: Other (Remains internally stimulated) Delusion Type: Paranoid Suicidal Ideation: No Suicidal Plan: No Suicidal Intention: No Homicidal Ideation: No Homicidal Plan: No Homicidal Intention: No Insight: Poor Judgment: Poor Assessment and Plan - Assessment (1) Paranoid schizophrenia Code(s): F20.0 - Paranoid schizophrenia Status: Acute - Plan Plan: Continue current tx plan. Justification for Continued Inpatient Stay: impairments in reality testing Request Healthcare Surrogate/Guardian Advocate?: Yes
[2017-11-20] MEDS: risperiDONE 2 MG ODT PO SCH ×2 (08:43→20:24)
--- NOTE | 2017-11-20 16:32 | P.PNPSY ---
Subjective Remarks: Pt seen and discussed with staff. He has been isolative to his room and has been observed arguing and cursing at unseen entities. He is irritable and hostile with nurses when asked about AH. He is malodorous and hygiene is overall poor. He is compliant with medicine. Mental Status Examination Appearance: Disheveled, Malodorous Consciousness: Alert, Vigilant Orientation: Person, Place (At least) Motor Activity: Other (No motoric abnormalities noted) Speech: Unremarkable Language: Adequate Fund of Knowledge: Adequate Attention and Concentration: Adequate Memory: Unremarkable Mood: Irritable (A little less irritable today) Affect: Irritable Thought Process & Associations: Intact Thought Content: Preoccupations Hallucination Type: Other (Remains internally stimulated) Delusion Type: Paranoid Suicidal Ideation: No Suicidal Plan: No Suicidal Intention: No Homicidal Ideation: No Homicidal Plan: No Homicidal Intention: No Insight: Poor Judgment: Poor Assessment and Plan - Assessment (1) Paranoid schizophrenia Code(s): F20.0 - Paranoid schizophrenia Status: Acute - Plan Plan: Continue current tx plan. Justification for Continued Inpatient Stay: impairments in self care and reality testing Request Healthcare Surrogate/Guardian Advocate?: Yes
[2017-11-21] MEDS: risperiDONE 2 MG ODT PO SCH ×2 (08:24→20:33)
--- NOTE | 2017-11-21 14:28 | P.PNPSY ---
Subjective Remarks: Reviewed electronic medical record discussed case with staff. Follow-up was conducted in patient's room. Patient found lying in his bed awake, alert, and oriented. He states that he has been sleeping well and that he has had a good appetite. He reports that he comes from [facility] and has been there for "little over a year". He denies auditory hallucinations although nurse reports that she has heard him talking to himself on numerous occasions. He became quite irritable when I attempted to make small talk can gather some historical information. When asked why he was becoming angry he stated " because it is none of your business". That was an response to my asking him what he had done for a living previously. Mental Status Examination Appearance: Disheveled, Malodorous Consciousness: Alert, Vigilant Orientation: Person, Place (At least) Motor Activity: Other (No motoric abnormalities noted) Speech: Unremarkable Language: Adequate Fund of Knowledge: Adequate Attention and Concentration: Adequate Memory: Unremarkable Mood: Irritable (A little less irritable today) Affect: Irritable Thought Process & Associations: Intact Thought Content: Preoccupations Hallucination Type: Other (Remains internally stimulated) Delusion Type: Paranoid Suicidal Ideation: No Suicidal Plan: No Suicidal Intention: No Homicidal Ideation: No Homicidal Plan: No Homicidal Intention: No Insight: Poor Judgment: Poor Assessment and Plan - Plan Plan: Continue with current treatment plan. Justification for Continued Inpatient Stay: Review this patient to a less restrictive environment would likely result decompensation. Request Healthcare Surrogate/Guardian Advocate?: Yes
[2017-11-22] MEDS: risperiDONE 2 MG ODT PO SCH (08:16)
--- NOTE | 2017-11-22 11:23 | P.PNPSY ---
Subjective Remarks: Patient seen and examined with nurse. Chart reviewed. Case discussed with nursing staff. Patient is accepting psychotropic but refusing Flonase and nicotine patch. Nurse requests that I discontinue these agents, which I have done. Nurse also notes that patient is resistant to showering. Case discussed in treatment team. On my examination today, the patient is less irritable than in previous visits. He does remain somewhat guarded. He is fairly malodorous and disheveled. He denies any SI or HI. Denies any AVH but does appears somewhat internally preoccupied. No side effects from medications. No physical complaints. Vital Signs Temp Pulse Resp BP Pulse Ox 11/22/17 05:21 97.7 F 88 16 110/55 L 11/21/17 18:07 98.0 F 90 16 107/60 99 Labs reviewed. No new labs. Review of Systems All other systems reviewed negative except as stated in HPI (Limitation: Psychosis) Mental Status Examination Appearance: Disheveled, Malodorous Consciousness: Alert, Vigilant Orientation: Person, Place (Again, at least) Motor Activity: Other (No abnormal motor movements noted) Speech: Unremarkable Language: Adequate Fund of Knowledge: Adequate Attention and Concentration: Adequate Memory: Unremarkable Mood: Appropriate (Less irritable today) Affect: Appropriate Thought Process & Associations: Intact Thought Content: Delusional Hallucination Type: Other (Somewhat internally stimulated) Delusion Type: Paranoid (Perhaps decreasing somewhat) Suicidal Ideation: No Suicidal Plan: No Suicidal Intention: No Homicidal Ideation: No Homicidal Plan: No Homicidal Intention: No Insight: Poor Judgment: Poor Assessment and Plan - Assessment (1) Paranoid schizophrenia Code(s): F20.0 - Paranoid schizophrenia Status: Acute - Plan Plan: Titrate Risperdal to 3 mg twice daily to target psychotic symptoms. Plan remains for transition to long-acting injectable antipsychotic so long as the oral agent is efficacious. Continue to monitor on the inpatient unit. Continue other medications and care as ordered. Justification for Continued Inpatient Stay: Medication changes. Impairment in reality construction. Discharge Planning: Return to facility once psychiatrically stabilized Request Healthcare Surrogate/Guardian Advocate?: Yes
[2017-11-22] MEDS: risperiDONE 3 MG ODT PO SCH (20:21)
[2017-11-23] MEDS: risperiDONE 3 MG ODT PO SCH ×2 (08:22→20:46)
--- NOTE | 2017-11-23 11:29 | P.PNPSY ---
Subjective Remarks: Patient seen and examined with nurse. Chart reviewed. Case discussed with nursing staff. On my exam today, patient presents as malodorous and disheveled. He admits that it has been a few days since he last showered but promises to shower today. I observe him responding to internal stimuli following our interview, although he denies AVH. Denies SI/HI. Perseverative on discharge back to [facility] saying repeatedly "there is nothing wrong with me." Insight into mental illness and need for treatment remains poor. Denies side effects from medications. No physical complaints. Case discussed with counselor who reports that investment representative from patient's assisted living facility will be around later today to evaluate patient to see if he is approaching his chronic baseline. Vital Signs Temp Pulse Resp BP Pulse Ox 11/23/17 05:22 97.3 F L 72 17 111/54 L 95 11/22/17 17:57 97.4 F L 90 16 116/66 98 Intake and Output 11/22/17 11/23/17 11/23/17 22:59 06:59 14:59 Intake Total 240 / 240 Balance 240 / 240 Intake: Oral 240 / 240 Labs reviewed. No new labs. Review of Systems All other systems reviewed negative except as stated in HPI (Limitation: Psychosis) Mental Status Examination Appearance: Disheveled, Malodorous Consciousness: Alert Orientation: Person, Place (Again, at least) Motor Activity: Other (No motoric abnormalities appreciated) Speech: Unremarkable Language: Adequate Fund of Knowledge: Adequate Attention and Concentration: Adequate Memory: Unremarkable Mood: Other (Calm) Affect: Blunt Thought Process & Associations: Intact Thought Content: Delusional, Other (Perseverative on discharge) Hallucination Type: Other (Remains internally stimulated) Delusion Type: Paranoid (Perhaps decreasing somewhat) Suicidal Ideation: No Suicidal Plan: No Suicidal Intention: No Homicidal Ideation: No Homicidal Plan: No Homicidal Intention: No Insight: Poor Judgment: Poor Assessment and Plan - Assessment (1) Paranoid schizophrenia Code(s): F20.0 - Paranoid schizophrenia Status: Acute - Plan Plan: Patient requires additional time with antipsychotic. Continue Risperdal as ordered. To consider titrating to 4 mg twice a day. To consider long-acting injectable, but I want to see more evidence of efficacy of the oral agent first. Continue to monitor on the inpatient unit. Follow-up impressions of investment representative from assisted living facility. Continue other medications and care as ordered. Justification for Continued Inpatient Stay: Impairment in reality construction. Impairment in self-care. High risk for decompensation in less restrictive environment. Discharge Planning: Pending psychiatric stabilization Request Healthcare Surrogate/Guardian Advocate?: Yes
[2017-11-24] MEDS: risperiDONE 3 MG ODT PO SCH (08:45)
--- NOTE | 2017-11-24 11:24 | P.PNPSY ---
Subjective Remarks: Patient seen and examined with nurse. Chart reviewed. Case discussed with nursing staff. Patient reportedly showered this morning with minimal prompting. 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 Case discussed with counselor who reports patient was visited by a insurance follow up representative from his assisted living facility and was not felt to be at his psychiatric baseline. I observe the patient talking to himself in his room. On my examination today the patient says that his mood is "alright." Affect is fairly flat. He denies any SI or HI. Denies any AVH but see above. Remains paranoid. No side effects from medications. No physical complaints. Vital Signs Temp Pulse Resp BP Pulse Ox 11/24/17 04:54 97.9 F 82 103/63 94 L 11/23/17 18:00 98 F 97 H 18 104/56 L 95 Intake and Output 11/23/17 11/24/17 11/24/17 22:59 06:59 14:59 Intake Total 360 / 360 Balance 360 / 360 Intake: Oral 360 / 360 Other: Weight 62.3 kg Labs reviewed Review of Systems All other systems reviewed negative except as stated in HPI (Limitation: Psychosis) Mental Status Examination Appearance: Disheveled Consciousness: Alert Orientation: Person, Place Motor Activity: Other (No abnormal motor movements noted) Speech: Unremarkable Language: Adequate Fund of Knowledge: Adequate Attention and Concentration: Adequate Memory: Unremarkable Mood: Other (Calm) Affect: Flat Thought Process & Associations: Intact Thought Content: Delusional Hallucination Type: Other (Internally preoccupied) Delusion Type: Paranoid (Perhaps decreasing somewhat) Suicidal Ideation: No Homicidal Ideation: No Insight: Poor Judgment: Poor Assessment and Plan - Assessment (1) Paranoid schizophrenia Code(s): F20.0 - Paranoid schizophrenia Status: Acute - Plan Plan: Titrate Risperdal to 4 mg twice daily to target ongoing psychotic symptoms. If we do not begin to see some consistent improvement in patient's mental illness soon, to consider switching to a different antipsychotic, although we should probably select an agent that has an available long-acting injectable because the patient's insight into need for treatment is quite poor. Continue to monitor on the inpatient unit. Continue other medications and care as ordered. Justification for Continued Inpatient Stay: Impairment in reality construction. Medication changes. High risk for decompensation in less restrictive environment. Discharge Planning: Return to facility once psychiatrically stable Request Healthcare Surrogate/Guardian Advocate?: Yes
--- NOTE | 2017-11-25 12:04 | P.PNPSY ---
Subjective Remarks: Patient seen and examined with nurse. Chart reviewed. Case discussed in treatment team. Counselor relates concern from [facility] that patient may have been inducing vomiting to avoid taking meds there and may be doing the same here. Case discussed with nursing staff. Nursing has not noted patient to induce vomiting. On my exam, patient remains paranoid and somewhat oppositional. His grooming and hygiene are marginal. He denies covert non-adherence with meds. Insight into mental illness remains quite poor. Continues to insist that he is "fine." Denies side effects from medications. No physical complaints. Intake and Output 11/24/17 11/25/17 11/25/17 22:59 06:59 14:59 Intake Total 360 / 360 Balance 360 / 360 Intake: Oral 360 / 360 Labs reviewed. No new labs. Review of Systems All other systems reviewed negative except as stated in HPI (Limitation: Psychosis) Mental Status Examination Appearance: Disheveled Consciousness: Alert Orientation: Person, Place Motor Activity: Other (No abnormal motor movements noted) Speech: Unremarkable Language: Adequate Fund of Knowledge: Adequate Attention and Concentration: Adequate Memory: Unremarkable Mood: Oppositional, Other (Dysphoric) Affect: Flat Thought Process & Associations: Intact Thought Content: Delusional Hallucination Type: Other (Remains internally stimulated) Delusion Type: Paranoid Suicidal Ideation: No Suicidal Plan: No Suicidal Intention: No Homicidal Ideation: No Homicidal Plan: No Homicidal Intention: No Insight: Poor Judgment: Poor Assessment and Plan - Assessment (1) Paranoid schizophrenia Code(s): F20.0 - Paranoid schizophrenia Status: Acute - Plan Plan: Mouth checks. Patient to be observed in common area for 1 hour after meds. Continue Risperdal M-Tabs 4mg BID and Cogentin. If not improved after weekend, we will switch/augment antipsychotic. Plan remains for long-acting injectable. I encouraged participation in groups and unit activities. Continue to monitor on the inpatient unit. Continue other medications and care as ordered. Justification for Continued Inpatient Stay: Impairment in reality construction. High risk for decompensation in less restrictive environment. Discharge Planning: Return to [facility] once psychiatrically stable. Request Healthcare Surrogate/Guardian Advocate?: Yes
--- NOTE | 2017-11-26 13:23 | P.PNPSY ---
Subjective Remarks: Patient was seen and case discussed with nursing. Patient interviewed in his room. He is minimally engaged with poor eye contact. He is disheveled and responding to internal stimuli. Answers with yes or no with an apathetic affect. Compliant with his medications. No outbursts Mental Status Examination Appearance: Disheveled Consciousness: Alert Orientation: Person, Place Motor Activity: Other (No abnormal motor movements noted) Speech: Unremarkable Language: Adequate Fund of Knowledge: Adequate Attention and Concentration: Adequate Memory: Unremarkable Mood: Oppositional, Other (Dysphoric) Affect: Flat Thought Process & Associations: Intact Thought Content: Delusional Hallucination Type: Other (Remains internally stimulated) Delusion Type: Paranoid Suicidal Ideation: No Suicidal Plan: No Suicidal Intention: No Homicidal Ideation: No Homicidal Plan: No Homicidal Intention: No Insight: Poor Judgment: Poor Assessment and Plan - Assessment (1) Paranoid schizophrenia Code(s): F20.0 - Paranoid schizophrenia Status: Acute - Plan Plan: Continue current treatment plan Justification for Continued Inpatient Stay: Patient would decompensate in a less restrictive setting Request Healthcare Surrogate/Guardian Advocate?: Yes
--- NOTE | 2017-11-27 11:59 | P.PNPSY ---
Subjective Remarks: Patient was seen and case discussed with nursing. Patient remains seclusive to his room. Here is disheveled with poor eye contact. Affect is flat and apathetic. Yes/no answers. Compliant with medications, no aggression Mental Status Examination Appearance: Disheveled Consciousness: Alert Orientation: Person, Place Motor Activity: Other (No abnormal motor movements noted) Speech: Unremarkable Language: Adequate Fund of Knowledge: Adequate Attention and Concentration: Adequate Memory: Unremarkable Mood: Oppositional, Other (Dysphoric) Affect: Flat Thought Process & Associations: Intact Thought Content: Delusional Hallucination Type: Other (Remains internally stimulated) Delusion Type: Paranoid Suicidal Ideation: No Suicidal Plan: No Suicidal Intention: No Homicidal Ideation: No Homicidal Plan: No Homicidal Intention: No Insight: Poor Judgment: Poor Assessment and Plan - Assessment (1) Paranoid schizophrenia Code(s): F20.0 - Paranoid schizophrenia Status: Acute - Plan Plan: Continue current treatment plan Justification for Continued Inpatient Stay: Patient would decompensate in a less restrictive setting Request Healthcare Surrogate/Guardian Advocate?: Yes
--- NOTE | 2017-11-28 09:51 | P.PNPSY ---
Subjective Remarks: Patient seen and examined with nurse. Chart reviewed. Case discussed with nursing staff. Nurse has cared for patient throughout hospital stay and sees little improvement with the Risperdal. On my examination today, patient remains guarded and paranoid. He remains internally preoccupied. Affect is somewhat irritable, particularly when I try to have a geoffrey discussion with him regarding his ongoing psychiatric symptoms. Insight into mental illness is poor as is insight into need for treatment. He denies any SI or HI. Denies any AVH. Says that he is not attending groups and unit activities because "I do not know these people. I do not want to make friends." Denies side effects from medications. No physical complaints. Patient says he likes the Risperdal and would like to remain on this if possible. Remains resistant to long-acting injectable antipsychotic. Vital Signs Temp Pulse Resp BP Pulse Ox 11/28/17 05:56 97.6 F 86 16 130/58 L 98 Intake and Output 11/27/17 11/28/17 11/28/17 22:59 06:59 14:59 Other: Weight 61.4 kg Labs reviewed. No new labs. Review of Systems All other systems reviewed negative except as stated in HPI (Limitation: Psychosis) Mental Status Examination Appearance: Disheveled Consciousness: Alert Orientation: Person, Place (At least) Motor Activity: Other (No motor abnormalities noted) Speech: Unremarkable Language: Adequate Fund of Knowledge: Adequate Attention and Concentration: Adequate Memory: Unremarkable Mood: Oppositional, Irritable, Other (Dysphoric) Affect: Other (Restricted, dysphoric) Thought Process & Associations: Intact Thought Content: Delusional Hallucination Type: Other (Internally preoccupied) Delusion Type: Paranoid Suicidal Ideation: No Suicidal Plan: No Suicidal Intention: No Homicidal Ideation: No Homicidal Plan: No Homicidal Intention: No Insight: Poor Judgment: Poor Assessment and Plan - Assessment (1) Paranoid schizophrenia Code(s): F20.0 - Paranoid schizophrenia Status: Acute - Plan Plan: Patient is on maximal dose of Risperdal but continues to exhibit psychotic symptoms. He does not wish to switch to a different antipsychotic, preferring to remain on the Risperdal. I will therefore augment Risperdal with Zyprexa Zydis 5mg qHS with IM backup. I have obtained consent for the Zyprexa from [facility]. Continue to monitor on inpatient unit. Continue other medications and care as ordered. Justification for Continued Inpatient Stay: Medication changes. Risk for decompensation and less restrictive environment. Impairment in reality construction. Discharge Planning: Pending psychiatric stabilization Request Healthcare Surrogate/Guardian Advocate?: Yes
[2017-11-28] MEDS: risperiDONE 2 MG ODT PO SCH (20:18)
[2017-11-29] MEDS: risperiDONE 2 MG ODT PO SCH ×2 (08:10→20:57)
--- NOTE | 2017-11-29 12:03 | P.PNPSY ---
Subjective Remarks: Patient seen and examined with nurse. Chart reviewed. Case discussed with nursing staff. Patient medication compliant, including with addition of Zyprexa Zydis last night. Nursing staff has been locking the bathroom after medication past to avoid regurgitation of medications. On my examination today , the patient presents as disheveled and malodorous. He denies any SI or HI. Denies any AVH or paranoia but continues to appear internally stimulated and guarded. Remains resistant to participating in unit activities, although he does begrudgingly say "I might go" to a group or 2 today. No side effects from medications. No physical complaints. Vital Signs Temp Pulse Resp BP Pulse Ox 11/29/17 06:00 97.1 F L 95 H 17 92/68 L 100 11/28/17 17:32 98 H 101/61 spurious Labs reviewed. No new labs. Review of Systems All other systems reviewed negative except as stated in HPI (Limitation: Psychosis) Mental Status Examination Appearance: Disheveled, Malodorous Consciousness: Alert Orientation: Person, Place (At least) Motor Activity: Other (No abnormal motor movements noted) Speech: Unremarkable Language: Adequate Fund of Knowledge: Adequate Attention and Concentration: Adequate Memory: Unremarkable Mood: Oppositional, Irritable, Other (Remains dysphoric) Affect: Blunt Thought Process & Associations: Intact Thought Content: Delusional Hallucination Type: Other (Remains internally stimulated) Delusion Type: Paranoid Suicidal Ideation: No Suicidal Plan: No Suicidal Intention: No Homicidal Ideation: No Homicidal Plan: No Homicidal Intention: No Insight: Poor Judgment: Poor Assessment and Plan - Assessment (1) Paranoid schizophrenia Code(s): F20.0 - Paranoid schizophrenia Status: Acute - Plan Plan: Continue Zyprexa augmenting Risperdal. Plan for titration of Zyprexa, likely tomorrow to target ongoing symptoms of psychosis. Encourage group participation and attendance to basic hygiene needs. Nurse will ensure the patient gets a shower today. Continue other medications and care as ordered. Continue to monitor on the inpatient unit. Justification for Continued Inpatient Stay: Impairment in reality construction. Impairment in self-care. Medication changes planned. High risk for decompensation in less restrictive environment. Discharge Planning: Return to facility once psychiatrically stable. Request Healthcare Surrogate/Guardian Advocate?: Yes
[2017-11-30] MEDS: risperiDONE 2 MG ODT PO SCH ×2 (08:46→20:23)
--- NOTE | 2017-11-30 14:00 | P.PNPSY ---
Subjective Remarks: Patient seen and examined with nurse. Chart reviewed. Case discussed with nursing staff. Nurse notes that patient continues to respond to internal stimuli but was able to go out for fresh air today by wearing his sunglasses. On my exam, patient seems more at ease. He is less irritable and oppositional. He greets me in an almost warm and welcoming fashion. I cannot at present tell whether this represents brady richard improvement or 'playing good' in service of obtaining discharge. He denies AVH. No SI/HI. No side effects from medications. No physical complaints. Vital Signs Temp Pulse Resp BP Pulse Ox 11/30/17 06:00 98.1 F 73 17 98/55 L 97 11/29/17 18:26 97.8 F 90 16 106/52 L 98 Intake and Output 11/29/17 11/30/17 11/30/17 22:59 06:59 14:59 Intake Total 360 / 360 Balance 360 / 360 Intake: Oral 360 / 360 Labs reviewed. No new labs. Review of Systems All other systems reviewed negative except as stated in HPI (Limitation: Psychosis) Mental Status Examination Appearance: Disheveled Consciousness: Alert Orientation: Person, Place (At least) Motor Activity: Other (No motoric abnormalities noted) Speech: Unremarkable Language: Adequate Fund of Knowledge: Adequate Attention and Concentration: Adequate Memory: Unremarkable Mood: Oppositional (Decreasing), Irritable (Decreasing) Affect: Blunt Thought Process & Associations: Intact Thought Content: Delusional Hallucination Type: Other (Remains internally stimulated) Delusion Type: Paranoid (Possibly decreasing) Suicidal Ideation: No Homicidal Ideation: No Insight: Poor Judgment: Poor Assessment and Plan - Assessment (1) Paranoid schizophrenia Code(s): F20.0 - Paranoid schizophrenia Status: Acute - Plan Plan: Some possible improvement with addition of Zyprexa. I will titrate this agent to 10 mg at bedtime and continue with Risperdal as ordered. Continue to monitor on the inpatient unit. Continue other care and medications as ordered. Justification for Continued Inpatient Stay: Medication changes. Impairment in reality construction. High risk for decompensation in less restrictive environment. Discharge Planning: Pending stabilization Request Healthcare Surrogate/Guardian Advocate?: Yes
[2017-11-30] MEDS: OLANZapine 10 MG ODT Tablet PO SCH (20:23)
[2017-12-01] MEDS: risperiDONE 2 MG ODT PO SCH ×2 (08:15→21:53)
--- NOTE | 2017-12-01 13:38 | P.PNPSY ---
Subjective Remarks: Patient seen and examined. Chart reviewed. Case discussed with nursing staff who reports patient's affect is a little brighter and he showered today. Patient seems a little withdrawn today on my examination. Eye contact is poor. He remains disheveled. He denies SI or HI. Denies AVH but does appears somewhat internally preoccupied. No side effects from medications. No physical complaints. Intake and Output 12/01/17 12/01/17 12/01/17 06:59 14:59 22:59 Other: Weight 61.2 kg Labs reviewed. No new labs. Review of Systems All other systems reviewed negative except as stated in HPI (Limitation: Poor historian) Mental Status Examination Appearance: Disheveled Consciousness: Alert Orientation: Person, Place (At least) Motor Activity: Other (No abnormal motor movements noted) Speech: Unremarkable Language: Adequate Fund of Knowledge: Adequate Attention and Concentration: Adequate Memory: Unremarkable Mood: Other (Calm) Affect: Blunt Thought Process & Associations: Intact Thought Content: Delusional Hallucination Type: Other (Remains internally stimulated) Delusion Type: Paranoid (Possibly decreasing) Suicidal Ideation: No Suicidal Plan: No Suicidal Intention: No Homicidal Ideation: No Homicidal Plan: No Homicidal Intention: No Insight: Poor Judgment: Poor Assessment and Plan - Assessment (1) Paranoid schizophrenia Code(s): F20.0 - Paranoid schizophrenia Status: Acute - Plan Plan: Continue current psychotropics as ordered. To consider further titration of patient's Zyprexa. Continue to monitor on the inpatient unit. Continue other medications and care as ordered. Justification for Continued Inpatient Stay: Impairment in reality construction. High risk for decompensation in less restrictive environment. Discharge Planning: Pending psychiatric stabilization Request Healthcare Surrogate/Guardian Advocate?: Yes
[2017-12-01] MEDS: OLANZapine 10 MG ODT Tablet PO SCH (21:53)
[2017-12-02] MEDS: risperiDONE 2 MG ODT PO SCH ×2 (08:15→22:09)
--- NOTE | 2017-12-02 11:42 | P.PNPSY ---
Subjective Remarks: Patient seen and examined with counselor. Chart reviewed. Case discussed with nursing staff who reports patient is slowly becoming somewhat less isolative to room. He has posed no real behavioral problem. Case discussed in treatment team. Clinical Pharmacy Manager from patient's assisted living facility has been out to visit with the patient and does not believe that he is yet at his psychiatric baseline. On my examination today, the patient presents as somewhat irritable and malodorous. He is a little bit argumentative, particularly on the topic of long-acting injectable. He denies any SI or HI. Denies AVH. No side effects from medications. No physical complaints. Vital Signs Temp Pulse Resp BP Pulse Ox 12/02/17 05:38 97.8 F 86 16 114/62 98 12/01/17 19:32 98.4 F 16 120/66 99 Labs reviewed. No new labs. Review of Systems All other systems reviewed negative except as stated in HPI (Limitation: Psychosis) Mental Status Examination Appearance: Disheveled Consciousness: Alert Orientation: Person, Place (At least) Motor Activity: Other (No motoric abnormalities noted) Speech: Unremarkable Language: Adequate Fund of Knowledge: Adequate Attention and Concentration: Adequate Memory: Unremarkable Mood: Irritable Affect: Irritable, Blunt Thought Process & Associations: Intact Thought Content: Delusional Hallucination Type: Other (Remains internally stimulated) Delusion Type: Paranoid (Possibly decreasing) Suicidal Ideation: No Suicidal Plan: No Suicidal Intention: No Homicidal Ideation: No Homicidal Plan: No Homicidal Intention: No Insight: Poor Judgment: Poor Assessment and Plan - Assessment (1) Paranoid schizophrenia Code(s): F20.0 - Paranoid schizophrenia Status: Acute - Plan Plan: Titrate Zyprexa to 15 mg at bedtime augmenting oral Risperdal. Continue to monitor on inpatient unit. Continue other medications and care as ordered. Justification for Continued Inpatient Stay: Medication changes. High risk for decompensation in less restrictive environment Discharge Planning: Pending psychiatric stabilization Request Healthcare Surrogate/Guardian Advocate?: Yes
[2017-12-03] MEDS: risperiDONE 2 MG ODT PO SCH ×2 (09:35→20:06)
--- NOTE | 2017-12-03 09:36 | P.PNPSY ---
Subjective Chief Complaint: Chart reviewed. Rounded on patient with MICK Zepeda. Patient is in his room in bed. He is malodorous, irritable, and seclusive. He denies any auditory or visual hallucinations. Patient appears internally stimulated and paranoid. Per report patient is sleeping the majority of the day and evening. He is medication compliant. When asked if he needed anything he states, "I don't care." He avoids eye contact. Patient encouraged to participate in personal hygiene and participate in unit activities. Remarks: Patient is stable. Review of Systems All other systems reviewed negative except as stated in HPI Mental Status Examination Appearance: Disheveled, Malodorous Consciousness: Alert Orientation: Person, Place (At least) Motor Activity: Other (No motoric abnormalities noted) Speech: Unremarkable Language: Adequate Fund of Knowledge: Adequate Attention and Concentration: Adequate Memory: Unremarkable Mood: Irritable Affect: Irritable, Blunt Thought Process & Associations: Intact Thought Content: Delusional Hallucination Type: Other (Remains internally stimulated) Delusion Type: Paranoid (Possibly decreasing) Suicidal Ideation: No Suicidal Plan: No Suicidal Intention: No Homicidal Ideation: No Homicidal Plan: No Homicidal Intention: No Insight: Poor Judgment: Poor Assessment and Plan - Assessment (1) Paranoid schizophrenia Code(s): F20.0 - Paranoid schizophrenia Status: Acute - Plan Plan: Titrate Zyprexa to 15 mg at bedtime augmenting oral Risperdal. Continue to monitor on inpatient unit. Continue other medications and care as ordered. Justification for Continued Inpatient Stay: Moving patient to a lower level care may result in his decompensation. Discharge Planning: Discharge planning continuous. Request Healthcare Surrogate/Guardian Advocate?: Yes
[2017-12-04] MEDS: risperiDONE 2 MG ODT PO SCH ×2 (08:46→20:36)
--- NOTE | 2017-12-04 11:28 | P.PNPSY ---
Subjective Chief Complaint: Chart reviewed. Rounded on patient with MICK Zepeda. Patient is in his room in bed. He is malodorous, irritable, and seclusive. He denies any auditory or visual hallucinations. Patient appears internally stimulated and paranoid. Per report patient is sleeping the majority of the day and evening. He is medication compliant. When asked if he needed anything he states, "I don't care." He avoids eye contact. Patient encouraged to participate in personal hygiene and participate in unit activities. Remarks: Reviewed electronic medical records and discussed case with staff. Follow-up was conducted in patient's room. Patient's nurse reports that he has been irritable, seclusive, but compliant with medications. He remains discharge focused. He reports that he has been sleeping and eating well. When asked why he has not been participating in activities he states "I just want sleep". Additionally he reports being bored. Mental Status Examination Appearance: Disheveled, Malodorous Consciousness: Alert Orientation: Person, Place (At least) Motor Activity: Other (No motoric abnormalities noted) Speech: Unremarkable Language: Adequate Fund of Knowledge: Adequate Attention and Concentration: Adequate Memory: Unremarkable Mood: Irritable Affect: Irritable, Blunt Thought Process & Associations: Intact Thought Content: Delusional Hallucination Type: Other (Remains internally stimulated) Delusion Type: Paranoid (Possibly decreasing) Suicidal Ideation: No Suicidal Plan: No Suicidal Intention: No Homicidal Ideation: No Homicidal Plan: No Homicidal Intention: No Insight: Poor Judgment: Poor Assessment and Plan - Plan Plan: Patient will be reevaluated tomorrow by her attending psychiatrist. Continue with current treatment plan. Justification for Continued Inpatient Stay: Moving this patient to a less restrictive environment would likely result in decompensation. Request Healthcare Surrogate/Guardian Advocate?: Yes
--- NOTE | 2017-12-04 11:37 | P.PNPSY ---
Subjective Chief Complaint: Chart reviewed. Rounded on patient with MICK Zepeda. Patient is in his room in bed. He is malodorous, irritable, and seclusive. He denies any auditory or visual hallucinations. Patient appears internally stimulated and paranoid. Per report patient is sleeping the majority of the day and evening. He is medication compliant. When asked if he needed anything he states, "I don't care." He avoids eye contact. Patient encouraged to participate in personal hygiene and participate in unit activities. Remarks: See other note Mental Status Examination Appearance: Disheveled, Malodorous Consciousness: Alert Orientation: Person, Place (At least) Motor Activity: Other (No motoric abnormalities noted) Speech: Unremarkable Language: Adequate Fund of Knowledge: Adequate Attention and Concentration: Adequate Memory: Unremarkable Mood: Irritable Affect: Irritable, Blunt Thought Process & Associations: Intact Thought Content: Delusional Hallucination Type: Other (Remains internally stimulated) Delusion Type: Paranoid (Possibly decreasing) Suicidal Ideation: No Suicidal Plan: No Suicidal Intention: No Homicidal Ideation: No Homicidal Plan: No Homicidal Intention: No Insight: Poor Judgment: Poor Assessment and Plan - Assessment (1) Paranoid schizophrenia Code(s): F20.0 - Paranoid schizophrenia Status: Acute - Plan Plan: Patient will be reevaluated tomorrow by her attending psychiatrist. Continue with current treatment plan. Justification for Continued Inpatient Stay: See other note Request Healthcare Surrogate/Guardian Advocate?: Yes
[2017-12-05] MEDS: risperiDONE 2 MG ODT PO SCH (09:49)
--- NOTE | 2017-12-05 13:00 | P.PNPSY ---
Subjective Remarks: Patient seen and examined with nurse. Chart reviewed. Case discussed with nursing staff. Patient noted to remain psychotic and continues to respond to internal stimuli. On my examination today, the patient is paranoid and internally stimulated. He is hypoverbal and his affect is flat. His insight into mental illness and need for treatment remains quite poor. He insists that he does not have a problem and that everyone else is "crazy." Denies side effects from medications. No physical complaints. Vital Signs Temp Pulse Resp BP Pulse Ox 12/05/17 06:00 98.0 F 90 16 100/62 99 12/04/17 18:17 97.7 F 80 16 120/72 99 Intake and Output 12/04/17 12/05/17 12/05/17 22:59 06:59 14:59 Other: Weight 61.6 kg Labs reviewed. No new labs. Review of Systems All other systems reviewed negative except as stated in HPI (Limitation: Psychosis) Mental Status Examination Appearance: Disheveled Consciousness: Alert Orientation: Person, Place (At least) Motor Activity: Other (No abnormal motor movements noted) Speech: Unremarkable Language: Adequate Fund of Knowledge: Adequate Attention and Concentration: Adequate Memory: Unremarkable Mood: Irritable Affect: Flat Thought Process & Associations: Intact Thought Content: Delusional Hallucination Type: Other (Remains internally preoccupied) Delusion Type: Paranoid (Ongoing) Suicidal Ideation: No Suicidal Plan: No Suicidal Intention: No Homicidal Ideation: No Homicidal Plan: No Homicidal Intention: No Insight: Poor Judgment: Poor Assessment and Plan - Assessment (1) Paranoid schizophrenia Code(s): F20.0 - Paranoid schizophrenia Status: Acute - Plan Plan: Patient does not seem to be improving with current regimen. I will discontinue Risperdal and replaced with Prolixin. Since the patient is not antipsychotic alba and was tolerating a fairly robust dose of Risperdal, I will start Prolixin and liquid formulation 5 mg 3 times a day with plans to titrate to effect. I have obtained consent for the Prolixin from patient's guardian advocate. Tentative plan for long-acting injectable Prolixin Decanoate. Continue Zyprexa as ordered for now. Continue to monitor on the inpatient unit. Continue other medications and care as ordered. Justification for Continued Inpatient Stay: Medication changes. Impairment in self-care. Impairment in reality construction. High risk for decompensation in less restrictive environment. Discharge Planning: Pending psychiatric stabilization. Request Healthcare Surrogate/Guardian Advocate?: Yes
[2017-12-05] MEDS: FLUPHENAZINE HCL PO SCH ×3 (16:19→20:47)
[2017-12-05] MEDS ORDERED: fluPHENAZine Inj 25 MG/10 ML Vial IM PRN (17:38)
[2017-12-06] MEDS: FLUPHENAZINE HCL PO SCH ×3 (09:32→21:44)
--- NOTE | 2017-12-06 13:00 | P.PNPSY ---
Subjective Remarks: Patient seen and examined. Chart reviewed. Case discussed with nursing staff. Nurse reports that although it is charted as having been given, the patient did not receive his Prolixin last night. He did receive his Prolixin this morning. Case discussed in treatment team. On my examination day, the patient is secluding in his room. His presentation is more or less unchanged. He is perhaps a little less irritable today. He denies any SI, HI or AVH, although he remains internally stimulated. He denies side effects from medications and insists that he likes the Prolixin. No physical complaints. No confusion, chest pain, shortness of breath. Vital Signs Temp Pulse Resp BP Pulse Ox 12/06/17 05:42 97.4 F L 75 16 96/51 L 98 12/05/17 18:07 116 H 18 110/62 96 Labs reviewed. No new labs. Review of Systems All other systems reviewed negative except as stated in HPI (Limitation: Psychosis) Mental Status Examination Appearance: Disheveled Consciousness: Alert Orientation: Person, Place (At least) Motor Activity: Other (No motoric abnormalities noted) Speech: Unremarkable Language: Adequate Fund of Knowledge: Adequate Attention and Concentration: Adequate Memory: Unremarkable Mood: Irritable (Less so today) Affect: Flat Thought Process & Associations: Intact Thought Content: Delusional Hallucination Type: Other (Internally stimulated) Delusion Type: Paranoid Suicidal Ideation: No Suicidal Plan: No Suicidal Intention: No Homicidal Ideation: No Homicidal Plan: No Homicidal Intention: No Insight: Poor Judgment: Poor Assessment and Plan - Assessment (1) Paranoid schizophrenia Code(s): F20.0 - Paranoid schizophrenia Status: Acute - Plan Plan: Patient received first dose of Prolixin this morning. I have instructed the nurse to reinforce for night staff the importance of providing patient with Prolixin IM if he refuses p.o. Plan for dose adjustment of the Prolixin and initiation of Prolixin Decanoate. Continue to monitor on the inpatient unit. Continue other medications and care as ordered. Justification for Continued Inpatient Stay: Medication changes planned. High risk for decompensation in less restrictive environment. Impairment in reality construction. Discharge Planning: Pending psychiatric stabilization, return to facility Request Healthcare Surrogate/Guardian Advocate?: Yes
[2017-12-06] MEDS ORDERED: Haloperidol Inj 5 MG/ML Ampul IM SCH (23:30)
--- NOTE | 2017-12-07 09:20 | P.PNPSY ---
Subjective Remarks: Patient seen and examined. Chart reviewed. Case discussed with nursing staff. I was called is the physician global position system technician last night because the patient was quite agitated and pounding on the carrera. I provided order for ETO, but the patient ultimately did not require this medication as he was able to calm down on his own. On my examination today, the patient remains paranoid and internally stimulated. He seems a little more frankly irritable today. He tells me "I just want to get out of here." He denies any SI or HI. He is more interactive. No reported side effects from medications. No physical complaints. Towards the end of our interview, patient becomes quite irate for no reason that I can discern and yells at this provider, "you're fucking lying! Mother-fucking faggot!" Vital Signs Temp Pulse Resp BP Pulse Ox 12/07/17 06:15 98.4 F 81 16 98/63 L 96 12/06/17 18:22 97.2 F L 111 H 20 129/60 94 L Intake and Output 12/06/17 12/07/17 12/07/17 22:59 06:59 14:59 Intake Total 360 / 360 Balance 360 / 360 Intake: Oral 360 / 360 Labs reviewed. No new labs. Review of Systems unobtainable due to mental condition Mental Status Examination Appearance: Disheveled Consciousness: Alert Orientation: Person, Place (At least) Motor Activity: Other (No abnormal motor movements noted) Speech: Unremarkable Language: Adequate Fund of Knowledge: Adequate Attention and Concentration: Adequate Memory: Unremarkable Mood: Angry, Irritable Affect: Labile Thought Process & Associations: Intact Thought Content: Delusional Hallucination Type: Other (Internally stimulated) Delusion Type: Paranoid (Ongoing) Suicidal Ideation: No Suicidal Plan: No Suicidal Intention: No Homicidal Ideation: No (Unreliable to contract for safety) Homicidal Plan: No Homicidal Intention: No Insight: Poor Judgment: Poor Assessment and Plan - Assessment (1) Paranoid schizophrenia Code(s): F20.0 - Paranoid schizophrenia Status: Acute - Plan Plan: Patient remains severely decompensated with respect to psychotic illness. No discernible benefit from Prolixin as of yet. I will titrate the dose to 7.5 mg 3 times daily p.o. with IM backup. I did consider the possibility of akathisia causing patient's irritability and agitation today, but the patient does not describe any restlessness to suggest this. I suspect instead that the patient is simply experiencing a relative dose reduction in his antipsychotic from the switch from Risperdal to Prolixin and so the appropriate management step is to titrate the Prolixin at this time. Continue to monitor on the inpatient unit. I have alerted the nurse to the patient's behavior during our encounter and instructed her to have a low threshold to transfer the patient to the high acuity unit for closer monitoring. Continue other medications and care as ordered. Justification for Continued Inpatient Stay: Medication changes. Impairment in social function. High risk for decompensation in less restrictive environment. Discharge Planning: Pending psychiatric stabilization. I am growing somewhat more pessimistic that we will be able to stabilize the patient's case adequately for return to [facility]. I will initiate a [facility] referral as a backup plan. Request Healthcare Surrogate/Guardian Advocate?: Yes
[2017-12-07] MEDS: FLUPHENAZINE HCL PO SCH ×3 (09:55→21:22)
[2017-12-07] MEDS ORDERED: fluPHENAZine Inj 25 MG/10 ML Vial IM PRN (15:00)
[2017-12-08] MEDS: FLUPHENAZINE HCL PO SCH ×3 (08:56→21:29)
--- NOTE | 2017-12-08 11:31 | P.PNPSY ---
Subjective Remarks: Patient seen and examined with counselor and nurse. Chart reviewed. Case discussed with nursing staff. On my examination, patient remains seclusive to room. He continues to deny SI/HI/AVH. He is calmer today, and when I ask about his outburst yesterday he says "I just wanna get out." He continues to insist that there is nothing wrong with him. His insight into need for treatment remains quite poor, and I strongly suspect that he will not take his medication after discharge. When I suggest a long-acting injectable, he again insists that he cannot have a HOWELL because of some effect on his eyes. Denies side effects from medications. No physical complaints. I have run a literature report in PubMed for effects of Prolixin Dec (patient insists it is not the active drug but the carrier medium that he cannot have) on the eye and have found nothing. I have called and asked the pharmacist who has not heard of this problem in the past. I have spoken with Dr. Butterfield from ophthalmology who has consulted a colleague and neither have heard of some sort of ophthalmic damage from long-acting injectables. Vital Signs Temp Pulse Resp BP Pulse Ox 12/08/17 05:25 97.4 F L 69 15 114/53 L 98 12/07/17 18:00 98.3 F 91 H 18 106/55 L 98 Intake and Output 12/07/17 12/08/17 12/08/17 22:59 06:59 14:59 Intake Total 480 / 480 480 / 480 Balance 480 / 480 480 / 480 Intake: Oral 480 / 480 480 / 480 Labs reviewed. No new labs. Review of Systems All other systems reviewed negative except as stated in HPI Mental Status Examination Appearance: Disheveled Consciousness: Alert Orientation: Person, Place (At least) Motor Activity: Other (No motor abnormalities noted) Speech: Unremarkable Language: Adequate Fund of Knowledge: Adequate Attention and Concentration: Adequate Memory: Unremarkable Mood: Other (Calm) Affect: Blunt Thought Process & Associations: Intact Thought Content: Hallucinations Hallucination Type: Other (Remains somewhat internally stimulated) Delusion Type: None (Does not verbalize any delusional material today) Suicidal Ideation: No Homicidal Ideation: No Insight: Poor Judgment: Poor Assessment and Plan - Assessment (1) Paranoid schizophrenia Code(s): F20.0 - Paranoid schizophrenia Status: Acute - Plan Plan: Patient is stabilizing with Prolixin. Given his exceedingly poor insight, Prolixin Dec is indicated. Risk benefit profile very much favors initiation of Prolixin Dec in spite of patient's insistence that the carrier medium is deleterious to his eyes. I am aware that some of the first generation antipsychotics (the active drugs themselves), especially thioridazine, can cause retinopathies, but there has been no evidence of impairment in visual acuity on the unit on this medication. I will initiate Prolixin Decanoate 25mg IM now. I have obtained consent for this medication from pt's GA and have discussed the eye concerns with GA as well. Continue oral Prolixin supplementation. Continue to monitor on the inpatient unit. Continue other medications and care as ordered. Justification for Continued Inpatient Stay: Medication changes. High risk for decompensation in less restrictive environment. Discharge Planning: Pending psychiatric stabilization Request Healthcare Surrogate/Guardian Advocate?: Yes
[2017-12-09] MEDS: FLUPHENAZINE HCL PO SCH ×3 (10:58→20:44)
--- NOTE | 2017-12-09 11:28 | P.PNPSY ---
Subjective Remarks: Patient seen and examined with counselor. Chart reviewed. Case discussed with nursing staff. Patient was very agitated, banging on the windows of the nursing station overnight. Nurses had called me at the time, and I instructed that the patient be transferred to 2700, but it appears patient has remained on 2600. On my exam today, patient remains very irritable and agitated. He says that "immediately" after receiving Prolixin Dec his vision became blurry. He insists that he has no issue with the Prolixin itself, but rather it is the "gel " that the Prolixin is suspended in that is problematic. He seems to have intact visual acuity on direct confrontation and is navigating the unit without any difficulty. He remains exceedingly paranoid and agitated and yells expletives at this provider. He is fairly threatening. No evident side effects from medications. No other physical complaints. Vital Signs Temp Pulse Resp BP Pulse Ox 12/09/17 05:45 98.1 F 59 L 16 101/64 97 12/08/17 18:00 97.2 F L 81 16 121/62 99 Intake and Output 12/08/17 12/09/17 12/09/17 22:59 06:59 14:59 Intake Total 240 / 240 Balance 240 / 240 Intake: Oral 240 / 240 Labs reviewed. No new labs. Review of Systems unobtainable due to mental condition Mental Status Examination Appearance: Disheveled Consciousness: Alert Orientation: Person, Place (At least) Motor Activity: Other (No abnormal motor movements noted) Speech: Unremarkable Language: Adequate Fund of Knowledge: Adequate Attention and Concentration: Adequate Memory: Unremarkable Mood: Angry, Oppositional, Irritable Affect: Irritable, Other (Dysphoric) Thought Process & Associations: Circumstantial Thought Content: Hallucinations, Delusional Hallucination Type: Other (Internally stimulated) Delusion Type: Paranoid Suicidal Ideation: No Homicidal Ideation: No (Unreliable to contract for safety) Insight: Poor Judgment: Poor Assessment and Plan - Assessment (1) Paranoid schizophrenia Code(s): F20.0 - Paranoid schizophrenia Status: Acute - Plan Plan: Given level of agitation, transfer to 2700 unit now. I have discussed with service order clerk. Patient's complaints of 'blurry vision' following administration of Prolixin Dec is mechanistically unlikely and there is no evident visual deficit. I suspect as before that this simply represents resistance to treatment. Out of a great abundance of caution I will ask ophthalmology to see patient. Patient remains psychotic, and I will titrate oral Prolixin to 10mg TID. I will check an EKG to make sure QTc is not prolonging as larger doses of antipsychotic will likely be required. To consider additional decanoate. Continue other medications and care as ordered. Justification for Continued Inpatient Stay: Medication changes. Impairment in reality construction. High risk for decompensation in less restrictive environment. Discharge Planning: Pending psychiatric stabilization. State hospitalization is backup plan. Request Healthcare Surrogate/Guardian Advocate?: Yes
[2017-12-10] MEDS: FLUPHENAZINE HCL PO SCH ×3 (08:55→21:15)
--- NOTE | 2017-12-10 15:23 | ECG ---
Date Performed: 12/09/2017 Time Performed: 16:06:37 PTAGE: 47 years EKG: Sinus rhythm Since previous tracing, no significant change noted NORMAL ECG PREVIOUS TRACING : 11/17/2017 17.26 DOCTOR: Geo Masters Interpretating Date/Time 12/10/2017 15:23:05
--- NOTE | 2017-12-10 16:54 | P.PNPSY ---
Subjective Chief Complaint: Chart reviewed. Rounded on patient with MICK Zepeda. Patient is in his room in bed. He is malodorous, irritable, and seclusive. He denies any auditory or visual hallucinations. Patient appears internally stimulated and paranoid. Per report patient is sleeping the majority of the day and evening. He is medication compliant. When asked if he needed anything he states, "I don't care." He avoids eye contact. Patient encouraged to participate in personal hygiene and participate in unit activities. Remarks: Patient was seen and case discussed with nursing. Patient is apologetic for his behavior yesterday. However, he still has poor insight into his mental health reasons for admission. Per nursing, he has been behaving well on the unit today and has not needed any ETO's. She is compliant with his medications. However, is perseverant that all injections because blurry vision. Mental Status Examination Appearance: Disheveled Consciousness: Alert Orientation: Person, Place (At least) Motor Activity: Other (No abnormal motor movements noted) Speech: Unremarkable Language: Adequate Fund of Knowledge: Adequate Attention and Concentration: Adequate Memory: Unremarkable Mood: Oppositional, Irritable Affect: Irritable, Other (Dysphoric) Thought Process & Associations: Disorganized Thought Content: Hallucinations, Delusional Hallucination Type: Other (Internally stimulated) Delusion Type: Paranoid Suicidal Ideation: No Suicidal Plan: No Suicidal Intention: No Homicidal Ideation: No (Unreliable to contract for safety) Homicidal Plan: No Homicidal Intention: No Insight: Poor Judgment: Poor Assessment and Plan - Assessment (1) Paranoid schizophrenia Code(s): F20.0 - Paranoid schizophrenia Status: Acute - Plan Plan: Continue current treatment plan Justification for Continued Inpatient Stay: Patient would decompensate in a less restrictive setting Request Healthcare Surrogate/Guardian Advocate?: Yes
[2017-12-11] MEDS: FLUPHENAZINE HCL PO SCH ×3 (08:49→21:27)
--- NOTE | 2017-12-11 14:56 | P.PNPSY ---
Subjective Chief Complaint: Chart reviewed. Rounded on patient with MICK Zepeda. Patient is in his room in bed. He is malodorous, irritable, and seclusive. He denies any auditory or visual hallucinations. Patient appears internally stimulated and paranoid. Per report patient is sleeping the majority of the day and evening. He is medication compliant. When asked if he needed anything he states, "I don't care." He avoids eye contact. Patient encouraged to participate in personal hygiene and participate in unit activities. Remarks: Patient was seen and case discussed with nursing. Nursing notes the patient is more seclusive. Patient says he is just trying to spend out his time here in the hospital. He has not had any outbursts or agitation today. He is compliant with his medications. Asking about discharge. Denies auditory or visual hallucinations. Agrees to the trimming of his agrawal today Mental Status Examination Appearance: Disheveled Consciousness: Alert Orientation: Person, Place (At least) Motor Activity: Other (No abnormal motor movements noted) Speech: Unremarkable Language: Adequate Fund of Knowledge: Adequate Attention and Concentration: Adequate Memory: Unremarkable Mood: Appropriate Affect: Appropriate, Other (Dysphoric) Thought Process & Associations: Circumstantial Thought Content: Hallucinations, Delusional Hallucination Type: Other (Internally stimulated) Delusion Type: Paranoid Suicidal Ideation: No Suicidal Plan: No Suicidal Intention: No Homicidal Ideation: No (Unreliable to contract for safety) Homicidal Plan: No Homicidal Intention: No Insight: Poor Judgment: Poor Assessment and Plan - Assessment (1) Paranoid schizophrenia Code(s): F20.0 - Paranoid schizophrenia Status: Acute - Plan Plan: Continue current treatment plan Justification for Continued Inpatient Stay: Patient would decompensate in a less restrictive setting Request Healthcare Surrogate/Guardian Advocate?: Yes
[2017-12-12 06:36] VITALS: BP 95/60; PULSE 60; RESP 16; TEMP 97.7; O2SAT 98
[2017-12-12] MEDS: FLUPHENAZINE HCL PO SCH ×2 (08:22→15:50)
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
--- NOTE | 2017-12-12 16:08 | P.CON ---
History of Present Illness Service: Ophthalmology Reason for Consult: blurry vision Primary Care Provider: UNKNOWN History of Present Illness: 47 yo M who is currently in the psych [facility] for paranoid schizophrenia. Ophthalmology consulted to evaluate blurry vision. Patient says that immediately after receiving Prolixin Dec his vision becomes blurry. He says this happened when he received the medication last year, and it happened again recently during this stay when he received the injectable. Insists it is not the active drug but the carrier medium that he cannot have because "it causes a reaction with a catalyst in the light". 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 Medications and Allergies Active Medications: Active Medications Acetaminophen (Tylenol) 650 mg PO Q4H PRN PRN Reason: Pain 1-5 or Temp > 101F Al Hydrox/Mg Hydrox/Simethicone (Mag-Al Plus Susp Liq) 30 ml PO Q6H PRN PRN Reason: DYSPEPSIA Al Hydroxide/Mg Hydroxide (Milk Of Magnesia Liq) 30 ml PO DAILY PRN PRN Reason: CONSTIPATION Benztropine Mesylate (Cogentin) 1 mg PO BID [facility] Last Admin: 12/12/17 08:24 Dose: 1 mg Benztropine Mesylate (Cogentin) 1 mg PO BID PRN PRN Reason: EXTRA PYRAMIDAL SYMPTOMS Benztropine Mesylate (Cogentin Inj) 1 mg IM BID PRN PRN Reason: EPS, unable to take PO Diphenhydramine HCl (Benadryl) 50 mg PO HS PRN PRN Reason: INSOMNIA Fluphenazine HCl (Prolixin Inj) 7.5 mg IM DAILY@, PRN PRN Reason: Refuses PO Prolixin Last Admin: 12/09/17 15:09 Dose: 7.5 mg Fluphenazine HCl (Prolixin Liq) 10 mg PO DAILY@, [facility] Last Admin: 12/12/17 15:50 Dose: 10 mg Olanzapine (Zyprexa Zydis Odt) 15 mg PO HS [facility] Last Admin: 12/11/17 21:33 Dose: 15 mg Allergies Allergy/AdvReac Type Severity Reaction Status Date / Time No Known Allergies Allergy Mild Hives Uncoded 11/14/17 23:06 Home Medications Medication Instructions Recorded Confirmed Type fluticasone 2 spray INTRANASAL DAILY 11/12/17 11/12/17 History Physical Exam Vital signs: Vital Signs 12/11/17 17:35 12/12/17 06:00 Temperature 98.6 F 97.7 F Pulse Rate 79 60 Respiratory Rate 17 16 Blood Pressure 111/53 L 95/60 L Pulse Oximetry 100 98 - Detailed Eye Exam Comments: Va cc at near OD 20/20, OS 20/400 EOM full OU, no diplopia CVF full OD, unable OS Pupils 3-2 no APD OU IOP normal to palpation OU Anterior exam OD - normal eyelid, C/S W&Q, K clear, AC deep, pupil round, lens clear OS - normal eyelid, C/S W&Q, K clear, AC deep, pupil round, lens clear Assessment and Plan - Assessment (1) Blurred vision Code(s): H53.8 - Other visual disturbances Status: Acute Plan: I am not aware of any psych medications or mediums that cause immediate loss of vision. Patient is seeing 20/20 out of his right eye (left eye has history of melanoma). I have advised him to follow up as an outpatient so we can do a full dilated exam and take pictures of his Retina to rule out any other pathology. He should be seen regularly by an vegetable specker with his history of ocular melanoma.
== END 2017-12-12 17:25 ==
LOC: H260 11-08 00:40 → H270 12-09 13:43
PROVIDERS: ADMIT Psychiatry & Neurology Psychiatry; ATTEND Psychiatry & Neurology Psychiatry

== ENCOUNTER 2018-03-21 11:50 | Inpatient (IN) ==
--- NOTE | 2018-03-21 12:17 | ED ---
HPI General Chief Complaint: Abdominal Pain Stated Complaint: Psych Eval/ [facility] Time Seen by Provider: 03/21/18 12:14 Source: patient Mode of arrival: other (ELIJAH) Limitations: no limitations History of Present Illness HPI Narrative: 47-year-old male with a history of schizoaffective disorder presents to the emergency department as a Dotson act for evaluation from [facility]. According to the Dotson act, patient was becoming rowdy and threatening staff with guns. Patient states he takes Prozac and Zyprexa and is compliant with these medications. He denies suicidal or homicidal ideations. He denies accusations as stated on the Dotson act. He denies pain, fever, chills , nausea, vomiting or diarrhea. Denies illicit drug use or alcohol use. MD complaint: Reports other History of same: No Related Data Home Medications Medication Instructions Recorded Confirmed fluticasone 2 spray INTRANASAL DAILY 11/12/17 03/21/18 fluoxetine 40 mg PO DAILY 02/26/18 03/21/18 olanzapine 30 mg PO HS 02/26/18 03/21/18 Allergies Allergy/AdvReac Type Severity Reaction Status Date / Time No Known Allergies Allergy Mild Hives Uncoded 11/14/17 23:06 Review of Systems ROS: all other systems reviewed are negative [facility] Social History Social History Substance History: No History of Abuse Second Hand Smoke Exposure: Yes Smoking Status: Current every day smoker Tobacco Type: Cigarettes How Often Do You Have a Drink Containing Alcohol: Monthly or less Recent [facility] within the Last 8 Weeks: No Recent Out of Country Travel within the Last 8 Weeks: No Immunization History Tetanus Immunization: Never Vaccinated Exam Narrative Exam Narrative: GENERAL: WD, Wn in NAD SKIN: Focused skin assessment warm/dry. HEAD: Atraumatic. Normocephalic. EYES: Pupils equal and round. No scleral icterus. No injection or drainage. ENT: No nasal bleeding or discharge. Mucous membranes pink and moist. NECK: Trachea midline. No JVD. CARDIOVASCULAR: Regular rate and rhythm. No murmur appreciated. RESPIRATORY: No accessory muscle use. Clear to auscultation. Breath sounds equal bilaterally. GASTROINTESTINAL: Abdomen soft, non-tender, nondistended. Hepatic and splenic margins not palpable. MUSCULOSKELETAL: No obvious deformities. No clubbing. No cyanosis. No edema. NEUROLOGICAL: Awake and alert. No obvious cranial nerve deficits. Motor grossly within normal limits. Normal speech. PSYCHIATRIC: Appropriate mood and affect; insight and judgment normal. Course Initial Documented Vital Signs Temperature 99.4 F 03/21/18 11:58 Pulse Rate 122 H 03/21/18 11:58 Respiratory Rate 20 03/21/18 11:58 Blood Pressure 106/66 03/21/18 11:58 Pulse Oximetry 97 03/21/18 11:58 Last Documented Vital Signs Temperature 97.8 F 03/25/18 06:25 Pulse Rate 81 03/25/18 06:25 Respiratory Rate 17 03/25/18 06:25 Blood Pressure 107/56 L 03/25/18 06:25 Pulse Oximetry 96 03/25/18 06:25 Medical Decision Making MDM Narrative Medical decision making narrative: 48y male presents to the ED for evaluation as a BA from [place]. He denies SI/HI. Has no complaints today but desires to be discharged. Labs ordered for evaluation. Labs are stable. He is medically cleared to see psych. Medical Screen Exam Complete: Yes Emergency Medical Condition: Yes Differential Diagnosis Differential Diagnosis: Schizoaffective disorder, polysubstance use, anxiety, depression Lab Data Result diagrams: 03/21/18 12:15 03/25/18 07:13 Lab Results 03/21/18 03/21/18 03/22/18 Range/Units 12:15 12:15 06:45 WBC 8.3 (4.0-11.0) th/mm3 RBC 4.60 (4.50-5.90) mil/mm3 Hgb 15.5 (13.0-17.0) gm/dL Hct 45.7 (39.0-51.0) % MCV 99.4 (80.0-100.0) fL MCH 33.7 (27.0-34.0) pg MCHC 33.9 (32.0-36.0) % RDW 13.6 (11.6-17.2) % Plt Count 266 (150-450) th/mm3 MPV 10.1 (7.0-11.0) fL Neut % (Auto) 72.1 H (16.0-70.0) % Lymph % (Auto) 16.8 (9.0-44.0) % [place] % (Auto) 7.1 (0.0-8.0) % Eos % (Auto) 3.7 (0.0-4.0) % Baso % (Auto) 0.3 (0.0-2.0) % Neut # (Auto) 5.9 (1.8-7.7) th/mm3 Lymph # (Auto) 1.4 (1.0-4.8) th/mm3 [place] # (Auto) 0.6 (0.0-0.9) th/mm3 Eos # (Auto) 0.3 (0.0-0.4) th/mm3 Baso # (Auto) 0.0 (0.0-0.2) th/mm3 WBC Differential . Differential Comment Auto diff final Sodium 141 (136-145) meq/L Potassium 3.5 (3.5-5.1) meq/L Chloride 104 (98-107) meq/L Carbon Dioxide 28.9 (21.0-32.0) meq/L Anion Gap 8 (5-15) meq/L BUN 16 (7-18) mg/dL Creatinine 1.10 (0.60-1.30) mg/dL Estimated GFR 72 L (>89) mL/min Random Glucose 108 H (74-106) mg/dL Calcium 8.8 (8.5-10.1) mg/dL Magnesium 2.1 (1.5-2.5) mg/dL Total Bilirubin 0.3 (0.2-1.0) mg/dL AST 14 L (15-37) U/L ALT 24 (12-78) U/L Alkaline Phosphatase 68 (45-117) U/L Total Protein 7.8 (6.4-8.2) g/dL Albumin 4.2 (3.4-5.0) g/dL Triglycerides (42-150) mg/dL Cholesterol (120-200) mg/dL LDL Cholesterol, Calc (0-99) mg/dL HDL Cholesterol (40.0-60.0) mg/dL Cholesterol/HDL Ratio Ratio TSH 1.700 (0.358-3.740) uIU/mL Urine Color (Yellw/Straw) Urine Clarity (Clear) Urine pH (5.0-8.5) Ur Specific [place] (1.002-1.035) Urine Protein (Neg-Trace) mg/dL Urine Glucose (UA) (Negative) mg/dL Urine Ketones (Negative) mg/dL Urine Occult Blood (Negative) Urine Nitrate (Negative) Urine Bilirubin (Negative) Urine Urobilinogen (Less than 2) mg/dL Ur Leukocyte Esterase (Negative) Urine RBC (0-3) /hpf Urine WBC (0-5) /hpf Urine Mucus (Occasional) /lpf Micro UA Comment Ur Microscopic Review Urine Culture Comments Urine Opiates Screen Neg (Neg) Ur Barbiturates Screen Neg (Neg) Ur Amphetamines Screen Neg (Neg) U Benzodiazepines Scrn Neg (Neg) Urine Cocaine Screen Neg (Neg) U Cannabinoids Screen Neg (Neg) Serum Alcohol Less than 3 (0-5) mg/dL 03/22/18 03/25/18 Range/Units 06:45 07:13 WBC (4.0-11.0) th/mm3 RBC (4.50-5.90) mil/mm3 Hgb (13.0-17.0) gm/dL Hct (39.0-51.0) % MCV (80.0-100.0) fL MCH (27.0-34.0) pg MCHC (32.0-36.0) % RDW (11.6-17.2) % Plt Count (150-450) th/mm3 MPV (7.0-11.0) fL Neut % (Auto) (16.0-70.0) % Lymph % (Auto) (9.0-44.0) % [place] % (Auto) (0.0-8.0) % Eos % (Auto) (0.0-4.0) % Baso % (Auto) (0.0-2.0) % Neut # (Auto) (1.8-7.7) th/mm3 Lymph # (Auto) (1.0-4.8) th/mm3 [place] # (Auto) (0.0-0.9) th/mm3 Eos # (Auto) (0.0-0.4) th/mm3 Baso # (Auto) (0.0-0.2) th/mm3 WBC Differential Differential Comment Sodium 141 (136-145) meq/L Potassium 4.0 (3.5-5.1) meq/L Chloride 107 (98-107) meq/L Carbon Dioxide 26.4 (21.0-32.0) meq/L Anion Gap 8 (5-15) meq/L BUN 23 H (7-18) mg/dL Creatinine 0.85 (0.60-1.30) mg/dL Estimated GFR Greater than 89 (>89) mL/min Random Glucose 87 (74-106) mg/dL Calcium 8.3 L (8.5-10.1) mg/dL Magnesium (1.5-2.5) mg/dL Total Bilirubin (0.2-1.0) mg/dL AST (15-37) U/L ALT (12-78) U/L Alkaline Phosphatase (45-117) U/L Total Protein (6.4-8.2) g/dL Albumin (3.4-5.0) g/dL Triglycerides 58 (42-150) mg/dL Cholesterol 168 (120-200) mg/dL LDL Cholesterol, Calc 100 H (0-99) mg/dL HDL Cholesterol 56.7 (40.0-60.0) mg/dL Cholesterol/HDL Ratio 2.96 Ratio TSH (0.358-3.740) uIU/mL Urine Color Yellow (Yellw/Straw) Urine Clarity Hazy H (Clear) Urine pH 5.0 (5.0-8.5) Ur Specific [place] 1.023 (1.002-1.035) Urine Protein Negative (Neg-Trace) mg/dL Urine Glucose (UA) Negative (Negative) mg/dL Urine Ketones Negative (Negative) mg/dL Urine Occult Blood Negative (Negative) Urine Nitrate Negative (Negative) Urine Bilirubin Negative (Negative) Urine Urobilinogen Less than 2 (Less than 2) mg/dL Ur Leukocyte Esterase Negative (Negative) Urine RBC 1 (0-3) /hpf Urine WBC 3 (0-5) /hpf Urine Mucus Moderate H (Occasional) /lpf Micro UA Comment Culture not ind Ur Microscopic Review Not Reportable Urine Culture Comments Culture not ind Urine Opiates Screen (Neg) Ur Barbiturates Screen (Neg) Ur Amphetamines Screen (Neg) U Benzodiazepines Scrn (Neg) Urine Cocaine Screen (Neg) U Cannabinoids Screen (Neg) Serum Alcohol (0-5) mg/dL Discharge Plan Discharge Disposition Patient Disposition: 30 Still Patient Discharge Condition Condition: Stable Discharge Details Diagnosis: Encounter for medical screening examination Physicians Team ED Provider: Asuncion Flores ED Midlevel Provider: Brigette Victor Primary Care Provider: Primary Care Sushma Pederson Attending Provider: Tirso Mcclellan Other Providers: Tirso Mcclellan Status ED Status: Left Department Discharge Information Discharge Date/Time: 03/22/18 13:25
[2018-03-21 12:44] LABS: Baso % (Auto) 0.3 % (0.0-2.0); Eos # (Auto) 0.3 th/mm3 (0.0-0.4); Eos % (Auto) 3.7 % (0.0-4.0); Hematocrit 45.7 % (39.0-51.0); Hemoglobin 15.5 gm/dL (13.0-17.0); Lymph # (Auto) 1.4 th/mm3 (1.0-4.8); Lymph % (Auto) 16.8 % (9.0-44.0); Mean Corpuscular HGB Conc 33.9 % (32.0-36.0); Mean Corpuscular Hemoglobin 33.7 pg (27.0-34.0); Mean Corpuscular Volume 99.4 fL (80.0-100.0); Mean Platelet Volume 10.1 fL (7.0-11.0); Mono # (Auto) 0.6 th/mm3 (0.0-0.9); Mono % (Auto) 7.1 % (0.0-8.0); Neut # (Auto) 5.9 th/mm3 (1.8-7.7); Neut % (Auto) 72.1 % (16.0-70.0); Platelet Count 266 th/mm3 (150-450); Red Cell Distribution Width 13.6 % (11.6-17.2); White Blood Count 8.3 th/mm3 (4.0-11.0)
[2018-03-21 13:10] LABS: Alanine Aminotransferase 24 U/L (12-78); Albumin 4.2 g/dL (3.4-5.0); Anion Gap 8 meq/L (5-15); Aspartate Aminotransferase 14 U/L (15-37); Blood Urea Nitrogen 16 mg/dL (7-18); Calcium 8.8 mg/dL (8.5-10.1); Carbon Dioxide 28.9 meq/L (21.0-32.0); Chloride 104 meq/L (98-107); Glomerular Filtration Rate 72 mL/min (>89); Glucose,Random 108 mg/dL (74-106); Magnesium 2.1 mg/dL (1.5-2.5); Potassium 3.5 meq/L (3.5-5.1); Sodium 141 meq/L (136-145)
[2018-03-21 13:20] LABS: Alkaline Phosphatase 68 U/L (45-117); Total Protein 7.8 g/dL (6.4-8.2)
[2018-03-22 07:42] LABS: Amphetamine Screen,Urine Neg (Neg); Barbiturate Screen,Urine Neg (Neg); Cannabinoid Screen,Urine Neg (Neg); Cocaine Screen,Urine Neg (Neg); Opiate Screen,Urine Neg (Neg)
[2018-03-22 07:48] LABS: Bilirubin,Urine Negative (Negative); Clarity,Urine Hazy (Clear); Color,Urine Yellow (Yellw/Straw); Glucose,Urine (UA) Negative (Negative); Leukocyte Esterase,Urine Negative (Negative); Mucus,Urine Moderate /lpf (Occasional); Nitrite,Urine Negative (Negative); Specific Gravity,Urine 1.023 (1.002-1.035)
[2018-03-22] MEDS ORDERED: Bisacodyl 10 MG Supp RECTAL PRN (08:26)
[2018-03-22] MEDS ORDERED: Aluminum/Magnesium/Simethacone Susp 30 ML UDC PO PRN (08:26)
[2018-03-22] MEDS: FLUoxetine 20 MG Capsule PO SCH (13:00)
[2018-03-22] MEDS: Senna/Docusate Sodium 8.6/50 MG Tablet PO SCH ×2 (13:00→20:53)
--- NOTE | 2018-03-22 14:14 | P.HPPSY ---
Provisional Diagnosis Admission Date: March 22, 2018 08:29 [place] I.: Schizophrenia Competence Certification of Person's Competence To Provide Express and Informed Consent I have personally examined Gianfranco Walden, a person being served at [facility] on, March 22, 2018 1405. Express and informed consent means consent voluntarily given in writing, by a competent person, after sufficient explanation and disclosure of the subject matter involved to enable the person to make a knowing and willful decision without any element of force, fraud, deceit, duress, or other form of constraint or coercion. This person is 18 years of age or older, is not now known to be incompetent to consent to treatment with a guardian advocate, and does not have a health care surrogate or proxy currently making medical treatment decisions. I have found this person to be one of the following: [] Competent to provide express and informed consent, as defined above, for voluntary admission to this facility and is competent to provide express and informed consent for treatment. He/she has the consistent capacity to make well reasoned, willful, and knowing decisions concerning his or her medical or mental health treatment. The person fully and consistently understands the purpose of the admission for examination/placement and is fully capable of personally exercising all rights assured under [place] [] Incompetent to provide express and informed consent to voluntary admission, and this is incompetent to provide express and informed consent to treatment. The person must be transferred to involuntary status and a petition for a guardian advocate filed with the Circuit Court. [x] Refusing to provide express and informed consent to voluntary admission but is competent to provide express and informed consent for treatment. The person must be discharged or transferred to involuntary status. Form shall be completed within 24 hours of a person's arrival at the receiving facility and filed in the clinical record of each person: 1. Admitted on a voluntary basis 2. Permitted to provide express and informed consent to his/her own treatment 3. Allowed to transfer from involuntary to voluntary status 4. Prior to permitting a person to consent to his or her own treatment after having been previously found incompetent to consent to treatment. History of Present Illness Capacity: Has capacity History of Present Illness: The patient is a 47-year-old man, domiciled in [place] [facility], single, unemployed, supported by [facility], well known by the service, with a psychiatric history of schizophrenia versus schizoaffective disorder, multiple psychiatric admissions, he denies previous suicidal attempts, he was hospitalized here in [place] on November 2017 under the care of Dr. Mcclellan, the patient is on Zyprexa 10 mg, Prozac 60 mg prescribed by , no significant medical history, who presents to the emergency department as a Dotson act for evaluation from [facility]. According to the Dotson act, patient was becoming rowdy and threatening staff with guns. Patient states he takes Prozac and Zyprexa and is compliant with these medications. On my psychiatric evaluation today the patient is irritable, but cooperative. The patient says that he is here because several people are lying about him. He says that "they are saying that I have a machete, that I have guns and I want to kill people, but that is not true, they are always laying about me". He reports that he has been taking his medications, "even though I do not have any schizophrenia or schizoaffective disorder, they are inventing that to keep me under good control ". Patient says that he is going to leave his living facility tomorrow. Patient is requesting to be discharged, and becomes a little bit hostile and agitated, but verbally de-escalated. He denies suicidal enemas ideation, he denies visual and auditory hallucinations. The patient is kind irritable, but lineal, goal-directed, no prominent loosening of association or disorganization present, but the patient seems to be quite paranoid. He is fully oriented x3, no attention deficit, no fluctuation of consciousness. PPHx:, with a psychiatric history of schizophrenia versus schizoaffective disorder, multiple psychiatric admissions, he denies previous suicidal attempts , he was hospitalized here in [place] on November 2017 under the care of Dr. Mcclellan, the patient is on Zyprexa 10 mg, Prozac 60 mg prescribed by PMHx: No medical history Family Hx: Patient denies that family psychiatric history Substance Hx: Denies the use of illegal drugs or alcohol Social Hx: Patient was born and raised in [place], he lives in [facility], single, unemployed, on SSI - Inpatient Certification I certify that the inpatient services were ordered in accordance with Medicare regulations governing the order. This includes certification that hospital inpatient services are reasonable and necessary and in the case of services not specified as inpatient-only under 42 CFR 419.22(n), that they are appropriately provided as inpatient services in accordance to with the 2-midnight benchmark under 43 CFR 412.3(e) I certify that inpatient psychiatric hospital services are medically necessary. Evaluation and treatment and/or diagnostic testing are expected to improve the patient's condition. The patient needs on a daily basis, active treatment furnished directly by or requiring the supervision of inpatient psychiatric facility personnel. Estimated Total Length of Stay (Days): 7 Plans for Post Hospital Care: [facility]DC Review of Systems All other systems reviewed negative except as stated in HPI Psychiatric: Reports irritability, Reports paranoia PMFSH - History History Provided By: Patient - Medical History Medical History: Medical History (Last Reviewed 03/21/18 @ 12:06 by Boubacar Huertas RN) Schizoaffective disorder - Surgical History Surgical History: Surgical History (Last Reviewed 03/21/18 @ 12:06 by Boubacar Huertas RN) No history of previous surgery - Tobacco History Second Hand Smoke Exposure: Yes Tobacco Use In Past 30 Days: Yes Smoking Status: Current every day smoker Tobacco Type: Cigarettes - Alcohol History How Often Do You Have a Drink Containing Alcohol: Monthly or less - Substance Use History Substance History: No History of Abuse - Travel History Recent Travel in the [place] Within the Last 8 Weeks: No Recent Travel Out of the Country Within the Last 8 Weeks: No - Immunization History Tetanus Immunization: Never Vaccinated Medications and Allergies Active Medications: Active Medications Al Hydrox/Mg Hydrox/Simethicone (Mag-Al Plus Susp Liq) 30 ml PO Q6H PRN PRN Reason: DYSPEPSIA Al Hydroxide/Mg Hydroxide (Milk Of Magnesia Liq) 30 ml PO Q12H PRN PRN Reason: Mild Constipation Bisacodyl (Dulcolax Supp) 10 mg RECTAL DAILY PRN PRN Reason: SEVERE CONSITIPATION Fluoxetine HCl (Prozac) 40 mg PO DAILY [facility] Last Admin: 03/22/18 13:00 Dose: Not Given Lactulose (Lactulose Liq) 30 ml PO DAILY PRN PRN Reason: SEVERE CONSITIPATION Olanzapine (Zyprexa Zydis Odt) 30 mg PO HS [place] Senna/Docusate Sodium (Jacque-Colace) 1 tab PO BID [facility] Last Admin: 03/22/18 13:00 Dose: Not Given Sennosides (Senokot) 17.2 mg PO Q12H PRN PRN Reason: Moderate Constipation Allergies Allergy/AdvReac Type Severity Reaction Status Date / Time No Known Allergies Allergy Mild Hives Uncoded 11/14/17 23:06 Home Medications Medication Instructions Recorded Confirmed Type fluticasone 2 spray INTRANASAL DAILY 11/12/17 03/21/18 History fluoxetine 40 mg PO DAILY 02/26/18 03/21/18 History olanzapine 30 mg PO HS 02/26/18 03/21/18 History Results - Labs CBC & Chem 7: 03/21/18 12:15 03/21/18 12:15 Labs: Laboratory Results - last 24 hr 03/22/18 03/22/18 06:45 06:45 Urine Color Yellow Urine Clarity Hazy H Urine pH 5.0 Ur Specific [place] 1.023 Urine Protein Negative Urine Glucose (UA) Negative Urine Ketones Negative Urine Occult Blood Negative Urine Nitrate Negative Urine Bilirubin Negative Urine Urobilinogen Less than 2 Ur Leukocyte Esterase Negative Urine RBC 1 Urine WBC 3 Urine Mucus Moderate H Micro UA Comment Culture not ind Ur Microscopic Review Not Reportable Urine Culture Comments Culture not ind Urine Opiates Screen Neg Ur Barbiturates Screen Neg Ur Amphetamines Screen Neg U Benzodiazepines Scrn Neg Urine Cocaine Screen Neg U Cannabinoids Screen Neg Exam Vital signs: Vital Signs 03/21/18 22:23 03/22/18 03:11 03/22/18 06:56 Pulse Rate 60 68 68 Respiratory Rate 16 16 18 Blood Pressure 90/52 L 97/56 L 98/54 L Pulse Oximetry 97 100 98 Intake & Output 03/21/18 03/22/18 03/22/18 18:59 06:59 18:59 Weight 68.039 kg Narrative: No EPS, no withdrawal symptoms, no tremors, no stiffness, no gait disturbance, no catatonia present - Constitutional mild distress, moderate distress - Routine HEENT Exam Head: Present: normocephalic, atraumatic Eye: Present: EOMI, PERRL ENT: Present: mucous membranes moist Mental Status Examination Appearance: Appropriate Consciousness: Alert Orientation: x4 Motor Activity: Normal gait Speech: Unremarkable Language: Adequate Fund of Knowledge: Adequate Attention and Concentration: Adequate Memory: Unremarkable Mood: Angry Affect: Irritable Thought Process & Associations: Intact Thought Content: Appropriate Hallucination Type: None Delusion Type: Bizarre, Paranoid Suicidal Ideation: No Suicidal Plan: No Suicidal Intention: No Homicidal Ideation: No Homicidal Plan: No Homicidal Intention: No Insight: Poor Judgment: Poor Assessment and Plan - Assessment (1) Paranoid schizophrenia Code(s): F20.0 - Paranoid schizophrenia Status: Acute - Plan Plan: On my psychiatric evaluation today the patient presents irritable, poorly cooperative, requesting to be discharged, agitated, with visible paranoia against staff in his living facility. Patient reports that staff members in his home are inventing things about him,"even my psychiatric history is invented by them". Patient seems to be a little irrational, goal-directed, with impaired contact with the reality at the moment. On the Dotson act he was reported quite hostile, aggressive, making homicidal statements in [place] [facility]. The patient has a psychiatric history of schizophrenia, multiple psychiatric hospitalizations, and at this moment he seems to be having an schizophrenic decompensation. Patient will be admitted in psychiatry for observation and stabilization. I will restart olanzapine 10 mg, Prozac 60 mg daily. Patient will be transferred to 2700 unit. Assault precaution. Support , motivational psychoeducation provided. Will consult psychiatry for second opinion. Justification for Continued Inpatient Stay: Continue psychiatric admission for stabilization and safety.
[2018-03-22] MEDS: OLANZapine 15 MG ODT Tablet PO SCH (20:54)
[2018-03-23] MEDS: Senna/Docusate Sodium 8.6/50 MG Tablet PO SCH ×2 (08:15→20:29)
[2018-03-23] MEDS: FLUoxetine 20 MG Capsule PO SCH (08:16)
--- NOTE | 2018-03-23 09:28 | P.CONPSY ---
Provisional Diagnosis Admission Date: March 22, 2018 08:29 [place] I.: 1. Schizophrenia, paranoid type, acute exacerbation [place] II.: Deferred History of Present Illness Service: Psychiatry Consult date: 03/23/18 Requesting Physician: Conor Holland Reason for Consult: Second opinion for involuntary psychiatric hospitalization Primary Care Provider: No Primary Care Physician History of Present Illness: From Dr. oHlland's H&P: The patient is a 47-year-old man, domiciled in [facility], single, unemployed, supported by [facility], well known by the service, with a psychiatric history of schizophrenia versus schizoaffective disorder, multiple psychiatric admissions, he denies previous suicidal attempts, he was hospitalized here in [place] on November 2017 under the care of Dr. Mcclellan, the patient is on Zyprexa 10 mg, Prozac 60 mg prescribed by [facility], no significant medical history, who presents to the emergency department as a [place] act for evaluation from [facility]. According to the Dotson act, patient was becoming rowdy and threatening staff with guns. Patient states he takes Prozac and Zyprexa and is compliant with these medications. On my psychiatric evaluation today the patient is irritable, but cooperative. The patient says that he is here because several people are lying about him. He says that "they are saying that I have a machete, that I have guns and I want to kill people, but that is not true, they are always laying about me". He reports that he has been taking his medications, "even though I do not have any schizophrenia or schizoaffective disorder, they are inventing that to keep me under good control ". Patient says that he is going to leave his living facility tomorrow. Patient is requesting to be discharged, and becomes a little bit hostile and agitated, but verbally de-escalated. He denies suicidal enemas ideation, he denies visual and auditory hallucinations. The patient is kind irritable, but lineal, goal-directed, no prominent loosening of association or disorganization present, but the patient seems to be quite paranoid. He is fully oriented x3, no attention deficit, no fluctuation of consciousness. PPHx:, with a psychiatric history of schizophrenia versus schizoaffective disorder, multiple psychiatric admissions, he denies previous suicidal attempts , he was hospitalized here in [place] on November 2017 under the care of Dr. Mcclellan, the patient is on Zyprexa 10 mg, Prozac 60 mg prescribed by PMHx: No medical history Family Hx: Patient denies that family psychiatric history Substance Hx: Denies the use of illegal drugs or alcohol Social Hx: Patient was born and raised in [place], he lives in [facility], single, unemployed, on SSI On my exam today, 03/23: Patient seen and examined. Chart reviewed. Case discussed with nursing staff. On my exam, patient presents as paranoid. He is disheveled and malodorous. He tells me that he gave [facility] a 30-day notice and does not wish to return there. He denies the allegations in the [place] Act and says that facility is "lying their asses off." He tells me that he has $2,000 in the bank and gets $1 ,400/month in disability payments. He plans to get a hotel room if discharged, although he admits he has not lived independently in over 2 years. He denies any suicidal or homicidal ideation and in particular denies any violent ideation directed against staff at [facility]. He denies any AVH. Denies any issues with mood. He does say "I was angry all night; I don't want to be here. " Remainder of the psychiatric ROS is negative. No side effects from medications. No physical complaints. Past psychiatric history: Patient has a history of schizophrenia. He follows at [facility]. He reports that he takes Prozac and Zyprexa and is tolerating these medications well without side effects. He denies any psychiatric hospitalizations since he was here under my care earlier in the year. Denies any interval suicide attempts. Family history: Denies any family history of mental illness. Chemical dependency history: Patient denies any use of substances. Social history: The patient reports that he resides at [facility]. He is single with no children. He has a grade 12 education. 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 He denies any access to guns or firearms. Denies any legal problems. Review of Systems All other systems reviewed negative except as stated in HPI (Limitation: Psychosis) PMFSH - History History Provided By: Patient - Medical History Medical History: Medical History (Last Reviewed 03/21/18 @ 12:06 by Boubacar Huertas RN) Schizoaffective disorder - Surgical History Surgical History: Surgical History (Last Reviewed 03/21/18 @ 12:06 by Boubacar Huertas RN) No history of previous surgery - Tobacco History Second Hand Smoke Exposure: Yes Tobacco Use In Past 30 Days: Yes Smoking Status: Current every day smoker Tobacco Type: Cigarettes - Alcohol History How Often Do You Have a Drink Containing Alcohol: Monthly or less - Substance Use History Substance History: No History of Abuse - Substance Use Type Other Comment: Patient reports smoking cigarettes, however denies any other form of substance use (past or present). - Travel History Recent Travel in the [place] Within the Last 8 Weeks: No Recent Travel Out of the Country Within the Last 8 Weeks: No - Immunization History Tetanus Immunization: Never Vaccinated Medications and Allergies Active Medications: Active Medications Al Hydrox/Mg Hydrox/Simethicone (Mag-Al Plus Susp Liq) 30 ml PO Q6H PRN PRN Reason: DYSPEPSIA Al Hydroxide/Mg Hydroxide (Milk Of Magnesia Liq) 30 ml PO Q12H PRN PRN Reason: Mild Constipation Bisacodyl (Dulcolax Supp) 10 mg RECTAL DAILY PRN PRN Reason: SEVERE CONSITIPATION Fluoxetine HCl (Prozac) 40 mg PO DAILY [facility] Last Admin: 03/23/18 08:16 Dose: 40 mg Lactulose (Lactulose Liq) 30 ml PO DAILY PRN PRN Reason: SEVERE CONSITIPATION Olanzapine (Zyprexa Zydis Odt) 30 mg PO [facility] Last Admin: 03/22/18 20:54 Dose: 30 mg Senna/Docusate Sodium (Jacque-Colace) 1 tab PO BID [facility] Last Admin: 03/23/18 08:15 Dose: Not Given Sennosides (Senokot) 17.2 mg PO Q12H PRN PRN Reason: Moderate Constipation Allergies Allergy/AdvReac Type Severity Reaction Status Date / Time No Known Allergies Allergy Mild Hives Uncoded 11/14/17 23:06 Home Medications Medication Instructions Recorded Confirmed Type fluticasone 2 spray INTRANASAL DAILY 11/12/17 03/21/18 History fluoxetine 40 mg PO DAILY 02/26/18 03/21/18 History olanzapine 30 mg PO HS 10/14/18 11/06/18 History Exam Vital signs: Vital Signs 03/22/18 16:11 03/23/18 05:47 Temperature 97.6 F 97.1 F L Pulse Rate 99 H 90 Respiratory Rate 18 18 Blood Pressure 155/59 H 109/61 Pulse Oximetry 99 97 Intake & Output 03/22/18 03/23/18 03/23/18 18:59 06:59 18:59 Weight 60.2 kg Other: Weight On Admission 60.2 kg Narrative: Physical examination was completed by the ED provider. On my examination today , the patient appears to be in no acute physical distress. No motor abnormalities noted. Labs and vital signs reviewed: Laboratory Tests 03/21/18 03/21/18 03/22/18 12:15 12:15 06:45 WBC 8.3 Hgb 15.5 Plt Count 266 Sodium 141 Potassium 3.5 Chloride 104 Carbon Dioxide 28.9 BUN 16 Creatinine 1.10 Estimated GFR 72 L AST 14 L ALT 24 Alkaline Phosphatase 68 TSH 1.700 Urine Opiates Screen Neg Ur Barbiturates Screen Neg Ur Amphetamines Screen Neg U Benzodiazepines Scrn Neg Urine Cocaine Screen Neg U Cannabinoids Screen Neg Serum Alcohol Less than 3 Urinalysis results reviewed. Mental Status Examination Appearance: Appropriate Consciousness: Alert Orientation: Person, Place (at least) Motor Activity: Other (no motor abnormalities noted) Speech: Unremarkable Language: Adequate Fund of Knowledge: Adequate Attention and Concentration: Adequate Memory: Unremarkable Mood: Oppositional, Irritable Affect: Irritable Thought Process & Associations: Intact Thought Content: Appropriate Hallucination Type: None Delusion Type: Paranoid Suicidal Ideation: No Suicidal Plan: No Suicidal Intention: No Homicidal Ideation: No Homicidal Plan: No Homicidal Intention: No Insight: Poor Judgment: Poor Assessment and Plan - Assessment (1) Paranoid schizophrenia Code(s): F20.0 - Paranoid schizophrenia Status: Acute - Plan Plan: Given the circumstances of the patient's presentation here and his presentation on my examination today, I concur with Dr. Holland that the patient meets criteria for involuntary psychiatric hospitalization. Given the threats alleged in the Dotson act and current paranoia, I do believe that observation for impairments in safety and management of patient's psychotic symptoms is warranted. I have completed the second opinion paperwork. I will be assuming care of the patient's case. I will continue Zyprexa and Prozac as ordered for now. To consider further adjustment in medications if these are inadequate to ameliorate psychotic symptoms. Continue to monitor on the high acuity unit. Discharge planning; Case discussed with counselor. Continue other care as ordered. Justification for Continued Inpatient Stay: Impairment in reality construction. High risk for decompensation in less restrictive environment. Discharge Planning: To be determined. Request Healthcare Surrogate/Guardian Advocate?: No
[2018-03-23] MEDS: OLANZapine 15 MG ODT Tablet PO SCH (20:29)
[2018-03-24] MEDS: FLUoxetine 20 MG Capsule PO SCH (08:06)
[2018-03-24] MEDS: Senna/Docusate Sodium 8.6/50 MG Tablet PO SCH (08:07)
--- NOTE | 2018-03-24 10:32 | P.PNPSY ---
Subjective Remarks: Patient seen and examined with nurse. Chart reviewed. Case discussed with nursing staff. Patient noted to be irritable and refusing labs. Case discussed in treatment team. On my examination today, patient is seclusive in his room. He remains somewhat irritable. His hygiene is a little better today and he is somewhat less malodorous. He denies any SI, HI or AVH. I have requested that the occupational therapist perform an ADL assessment to see if return to independent living is feasible. When I try to discuss this assessment with the patient, he replies angrily "I am not a retard! You gotta be killing me!" No side effects from medications. No physical complaints. Vital Signs Temp Pulse Resp BP Pulse Ox 03/24/18 06:04 97.7 F 68 17 105/64 98 03/23/18 16:48 98.6 F 74 18 106/57 L 98 Labs reviewed. Refused laboratories per nursing. Review of Systems All other systems reviewed negative except as stated in HPI (Limitation: Poor historian) Mental Status Examination Appearance: Other (Fair) Consciousness: Alert Orientation: Person, Place (at least) Motor Activity: Other (No motoric abnormalities noted) Speech: Unremarkable Language: Adequate Fund of Knowledge: Adequate Attention and Concentration: Adequate Memory: Unremarkable Mood: Oppositional, Irritable Affect: Irritable (Perhaps a little less so today) Thought Process & Associations: Intact Thought Content: Appropriate Hallucination Type: None Delusion Type: Paranoid Suicidal Ideation: No Suicidal Plan: No Suicidal Intention: No Homicidal Ideation: No Homicidal Plan: No Homicidal Intention: No Insight: Poor Judgment: Poor Assessment and Plan - Assessment (1) Paranoid schizophrenia Code(s): F20.0 - Paranoid schizophrenia Status: Acute - Plan Plan: Continue Zyprexa and Prozac as ordered. If patient is not very much improved after the weekend, to consider switching to a different antipsychotic medication. OT assessment. Continue to monitor on the high acuity unit. Continue other medications and care as ordered. Justification for Continued Inpatient Stay: High risk for decompensation in less restrictive environment. Discharge Planning: To be determined. Patient wants independent living, but it is not clear that he is capable of this. Request Healthcare Surrogate/Guardian Advocate?: No
--- NOTE | 2018-03-24 15:23 | P.TTN ---
- Patient Problems Problems: 1. Discharge planning 2. Medication compliance 3. Knowledge deficit 4. Lack of coping skills - Progress Toward Goals Provider Present: Dr. Jillian Mcclellan (Patient needs to remain for further stabilization.) Psychiatric Counselors Present: Anand Madrigal Jr., [facility] (Counselor will meet with the patient to discuss a safe discharge plan. At this point, patient reports he will not return to [facility] and prefers to live in a hotel.) Group Spec/RT/OT/CAN Present: JUAN JOSÉ Diamond (Patient is seclusive to his room and does not attend groups.) - Documentation Teaching Recipient: Patient
[2018-03-24] MEDS: OLANZapine 15 MG ODT Tablet PO SCH (20:24)
[2018-03-25 07:56] LABS: Anion Gap 8 meq/L (5-15); Blood Urea Nitrogen 23 mg/dL (7-18); Calcium 8.3 mg/dL (8.5-10.1); Carbon Dioxide 26.4 meq/L (21.0-32.0); Chloride 107 meq/L (98-107); Glomerular Filtration Rate Greater Than 89 mL/min (>89); Glucose,Random 87 mg/dL (74-106); Sodium 141 meq/L (136-145)
[2018-03-25 07:58] LABS: Cholesterol 168 mg/dL (120-200); Triglycerides 58 mg/dL (42-150)
[2018-03-25 08:00] LABS: Chol/HDL Ratio 2.96 Ratio; HDL Cholesterol 56.7 mg/dL (40.0-60.0); LDL Cholesterol,Calculated 100 mg/dL (0-99)
[2018-03-25] MEDS: FLUoxetine 20 MG Capsule PO SCH (08:15)
--- NOTE | 2018-03-25 12:55 | P.PNPSY ---
Subjective Remarks: Patient was seen and case discussed with nursing. Patient remains irritable with poor insight concerning his admission. Today, he is compliant with his medications. He remains seclusive to his room and internally preoccupied. Hygiene is quite poor. He is goal oriented and wants to live in a motel Mental Status Examination Appearance: Other (Fair) Consciousness: Alert Orientation: Person, Place (at least) Motor Activity: Other (No motoric abnormalities noted) Speech: Unremarkable Language: Adequate Fund of Knowledge: Adequate Attention and Concentration: Adequate Memory: Unremarkable Mood: Angry, Oppositional, Irritable Affect: Irritable (Perhaps a little less so today) Thought Process & Associations: Intact Thought Content: Appropriate Hallucination Type: None Delusion Type: Paranoid Suicidal Ideation: No Suicidal Plan: No Suicidal Intention: No Homicidal Ideation: No Homicidal Plan: No Homicidal Intention: No Insight: Poor Judgment: Poor Assessment and Plan - Assessment (1) Paranoid schizophrenia Code(s): F20.0 - Paranoid schizophrenia Status: Acute - Plan Plan: Continue current treatment plan Justification for Continued Inpatient Stay: Patient would decompensate in a less restrictive setting Request Healthcare Surrogate/Guardian Advocate?: No
[2018-03-25] MEDS: OLANZapine 15 MG ODT Tablet PO SCH (20:05)
[2018-03-26] MEDS: FLUoxetine 20 MG Capsule PO SCH (08:40)
--- NOTE | 2018-03-26 10:44 | P.PNPSY ---
Subjective Remarks: Medical record reviewed and discussed with nursing staff. Patient in bed in his room. Rounded with MICK Lord. Patient states that he lives at [facility] and they came to get him for an appointment at [facility]. He states that he got into a disagreement with the office staff and he was placed under a [place] Act. He does not recall threatening staff or escalating. He states that he is going to stay in his bed so that he will not get into any trouble. He is medication compliant. No behavioral concerns. Sleeping and eating well. Review of Systems All other systems reviewed negative except as stated in HPI Mental Status Examination Appearance: Other (Fair) Consciousness: Alert Orientation: Person, Place (at least) Motor Activity: Other (No motoric abnormalities noted) Speech: Unremarkable Language: Adequate Fund of Knowledge: Adequate Attention and Concentration: Adequate Memory: Unremarkable Mood: Appropriate, Irritable Affect: Sad Thought Process & Associations: Intact Thought Content: Appropriate Hallucination Type: None Delusion Type: Paranoid Suicidal Ideation: No Suicidal Plan: No Suicidal Intention: No Homicidal Ideation: No Homicidal Plan: No Homicidal Intention: No Insight: Poor Judgment: Poor Assessment and Plan - Assessment (1) Paranoid schizophrenia Code(s): F20.0 - Paranoid schizophrenia Status: Acute - Plan Plan: Continue current treatment plan Justification for Continued Inpatient Stay: Moving patient to a less restrictive environment may result in his decompensation. Request Healthcare Surrogate/Guardian Advocate?: No
[2018-03-26 11:36] LABS: Hemoglobin A1c 5.3 % (4.3-6.0)
[2018-03-26] MEDS: OLANZapine 15 MG ODT Tablet PO SCH (20:24)
[2018-03-27] MEDS: FLUoxetine 20 MG Capsule PO SCH (08:24)
--- NOTE | 2018-03-27 09:09 | P.PNPSY ---
Subjective Remarks: Patient seen and examined with nurse. Chart reviewed. Case discussed with nursing staff. No behavioral issues noted overnight. On my examination today, the patient remained seclusive to room. Hygiene remains marginal. He denies SI or HI. Denies AVH. Denies command auditory hallucinations to hurt self/ others. Mood is reportedly fair and affect is less irritable. Denies side effects from medications. Does not desire any medication adjustment. No physical complaints. Continues to desire independent living. Occupational therapist notes that patient is at least theoretically capable of living independently (although he has not done so in several years). Vital Signs Temp Pulse Resp BP Pulse Ox 03/27/18 06:00 97.6 F 68 17 105/60 97 03/26/18 16:02 99.2 F 65 18 112/62 96 Intake and Output 03/26/18 03/27/18 03/27/18 22:59 06:59 14:59 Other: Weight 60 kg Laboratory Results - last 24 hr 03/25/18 07:13 Hemoglobin A1c 5.3 Labs reviewed. Review of Systems All other systems reviewed negative except as stated in HPI Mental Status Examination Appearance: Other (Fair) Consciousness: Alert Orientation: Person, Place (at least) Motor Activity: Other (No abnormal motor movements noted) Speech: Unremarkable Language: Adequate Fund of Knowledge: Adequate Attention and Concentration: Adequate Memory: Unremarkable (Grossly intact on clinical exam) Mood: Appropriate Affect: Blunt Thought Process & Associations: Intact Thought Content: Appropriate Hallucination Type: None Delusion Type: None Suicidal Ideation: No Suicidal Plan: No Suicidal Intention: No Homicidal Ideation: No Homicidal Plan: No Homicidal Intention: No Insight: Poor Judgment: Poor Assessment and Plan - Assessment (1) Paranoid schizophrenia Code(s): F20.0 - Paranoid schizophrenia Status: Acute - Plan Plan: Continue current psychotropic medications as ordered. Continue to monitor on the inpatient unit. Continue other care as ordered. Justification for Continued Inpatient Stay: Discharge planning. Discharge Planning: Although I recommend more structured living environment, patient desires independent living. We could consider discharge to independent living if safe discharge plan can be arranged. I have instructed the counselor to work on this. Request Healthcare Surrogate/Guardian Advocate?: No
[2018-03-27] MEDS: OLANZapine 15 MG ODT Tablet PO SCH (20:34)
[2018-03-28] MEDS: FLUoxetine 20 MG Capsule PO SCH (08:24)
--- NOTE | 2018-03-28 10:36 | P.PNPSY ---
Subjective Remarks: Patient seen and examined with counselor and nurse. Chart reviewed. Case discussed with nursing staff who reports patient continues to refuse to bathe. He reportedly last showered on Tuesday, 03/25. Nurse notes that after med pass , patient huddled under his covers, screaming and talking to himself. Case discussed in treatment team at great length. At issue was whether patient's level of function is adequate for discharge to independent living in a motel, as patient wishes. Although OT does believe that patient is capable of performing bADLs, it is felt that he likely will be unmotivated to do so, as is evidenced by his apathy about bathing on the unit. It is the sense of the treatment team that discharge to independent living is unsafe and likely to fail , and so patient should be held for new placement or state hospitalization. On my exam, patient presents as malodorous. He insists that he has recently bathed , but staff assure me otherwise, as noted above. He is exceedingly irritable and discharge focused. He insists that I had promised him discharge today when I have done no such thing. He remains fairly paranoid. I try to discuss treatment team concerns with him in a calm, rational manner. However, patient becomes explosively angry and yells expletives at this provider, "you're fucking crazy! Fuck you! Fucking asshole! Fucking nier!" He cannot tolerate further interview. He later comes to the nursing station window and continues his tirade, pounding briefly on the nursing station glass. He is able to be redirected by staff and an ETO is not required at this time. No evident medication side effects. No physical complaints. Vital Signs Temp Pulse Resp BP Pulse Ox 03/28/18 06:13 98.2 F 72 18 107/63 97 Labs reviewed. No new labs. Review of Systems unobtainable due to mental condition Mental Status Examination Appearance: Disheveled, Malodorous Consciousness: Alert Orientation: Person, Place (at least) Motor Activity: Other (No motoric abnormalities noted) Speech: Unremarkable Language: Adequate Fund of Knowledge: Adequate Attention and Concentration: Adequate Memory: Unremarkable (Grossly intact on clinical exam) Mood: Angry, Oppositional Affect: Irritable, Labile Thought Process & Associations: Intact Thought Content: Preoccupations, Delusional Hallucination Type: None Delusion Type: Paranoid Suicidal Ideation: No Homicidal Ideation: No Insight: Poor Judgment: Poor Assessment and Plan - Assessment (1) Paranoid schizophrenia Code(s): F20.0 - Paranoid schizophrenia Status: Acute - Plan Plan: Patient remains too decompensated with respect to psychotic illness for safe discharge. In addition to self-care concerns, patient's volatility raises concerns for possible aggressive behavior in the setting of his paranoia. For patient's irritability and mood lability, offer Tegretol 200mg BID with plans to check a level after appropriate interval. Continue Zyprexa and Prozac as ordered. To consider additional/alternative antipsychotic. Staff to assist patient with maintaining basic hygiene. Continue to monitor on the high acuity unit. Continue other medications and care as ordered. Justification for Continued Inpatient Stay: Medication changes. Impairment in self-care. Impairment in reality construction. High risk for decompensation in less restrictive environment. Discharge Planning: Pending outcome of [address] [address] . If retained by injection molder, placement versus state hospital. Request Healthcare Surrogate/Guardian Advocate?: No
--- NOTE | 2018-03-28 10:57 | P.TTN ---
- Patient Problems Problems: 1. Discharge planning 2. Medication compliance 3. Knowledge deficit 4. Lack of coping skills - Progress Toward Goals Provider Present: Dr. Jillian Mcclellan (Patient needs to remain for further stabilization. Patient is agitated, irritable, defiant, not caring for his basic needs, and hyper focused on discharge. Dr. Mcclellan will hold the patient until [place] court on .) Psychiatric Counselors Present: Anand Madrigal Jr., [facility] (Counselor will meet with the patient to discuss a safe discharge plan. At this point, patient reports he will not return to [facility] and prefers to live in a hotel. Patient continues to refuse SKILLED NURSING placement, maintaining that he will be discharged to a motel room.) Group Spec/RT/OT/CAN Present: JUAN JOSÉ Diamond (Patient is seclusive to his room and does not attend groups. [place] court will be held this , March 30, 2018. Patient does not attend groups and remained seclusive to his room) - Documentation Teaching Recipient: Patient
[2018-03-28] MEDS: OLANZapine 15 MG ODT Tablet PO SCH (20:35)
[2018-03-28] MEDS: carBAMazepine 200 MG Tablet PO SCH (20:35)
[2018-03-29] MEDS: carBAMazepine 200 MG Tablet PO SCH ×2 (08:20→20:49)
[2018-03-29] MEDS: FLUoxetine 20 MG Capsule PO SCH (08:20)
--- NOTE | 2018-03-29 08:44 | P.PNPSY ---
Subjective Remarks: Patient seen and examined with nurse. Chart reviewed. Case discussed with nursing staff. Patient noted to be medication compliant. He continues to respond to internal stimuli per nursing. He is reportedly hostile at times in verbal interactions with staff, but he has not been physically aggressive. On my exam, patient remains irritable and discharge focused. However, he is able to restrain himself from launching into a tirade like yesterday. He remains paranoid. No side effects from medications. Patient is tolerating addition of CBZ well. No physical complaints. Vital Signs Temp Pulse Resp BP Pulse Ox 03/29/18 05:58 97.3 F L 78 18 108/57 L 98 03/28/18 16:40 98.1 F 82 19 103/54 L 98 Labs reviewed. Review of Systems All other systems reviewed negative except as stated in HPI (Limitation: psychosis) Mental Status Examination Appearance: Disheveled Consciousness: Alert Orientation: Person, Place (at least) Motor Activity: Other (No abnormal motor movements noted) Speech: Unremarkable Language: Adequate Fund of Knowledge: Adequate Attention and Concentration: Adequate Memory: Unremarkable (Grossly intact on clinical exam) Mood: Irritable Affect: Irritable Thought Process & Associations: Intact Thought Content: Delusional Hallucination Type: None Delusion Type: Paranoid Suicidal Ideation: No Homicidal Ideation: No Insight: Poor Judgment: Poor Assessment and Plan - Assessment (1) Paranoid schizophrenia Code(s): F20.0 - Paranoid schizophrenia Status: Acute - Plan Plan: Continue CBZ as ordered; plan to check a level over weekend. Continue other medications as ordered. Continue to monitor on high acuity unit. Continue other care as ordered. Justification for Continued Inpatient Stay: High risk for decompensation in less restrictive setting. Discharge Planning: Pending outcome of [place] [facility] tomorrow. I did suggest to patient that a compromise discharge plan could include discharge to hotel (as patient wishes) with order for home nursing to follow up with patient in that setting to ensure that patient is maintaining ADLs and otherwise caring adequately for himself. Patient declines this offer, saying that he does not want home nursing to visit him. Request Healthcare Surrogate/Guardian Advocate?: No
[2018-03-29] MEDS: OLANZapine 15 MG ODT Tablet PO SCH (20:49)
[2018-03-30 05:55] VITALS: BP 102/55; PULSE 72; RESP 16; TEMP 97.3; O2SAT 98
[2018-03-30] MEDS: carBAMazepine 200 MG Tablet PO SCH (09:04)
[2018-03-30] MEDS: FLUoxetine 20 MG Capsule PO SCH (09:04)
--- NOTE | 2018-03-30 10:10 | P.DSPSY ---
Psychiatry Discharge Summary Inpatient Psychiatric care?: Yes Advance Directives: No Mental Health Advance Directive: No Health Care Proxy: No - Admission Admission Date: March 22, 2018 08:29 - Admission Diagnosis (1) Paranoid schizophrenia Code(s): F20.0 - Paranoid schizophrenia Brief History: The patient is a 47-year-old man, domiciled in [facility], single, unemployed, supported by [facility], well known by the service, with a psychiatric history of schizophrenia versus schizoaffective disorder, multiple psychiatric admissions, he denies previous suicidal attempts, he was hospitalized here in [place] on November 2017 under the care of Dr. Mcclellan, the patient is on Zyprexa 10 mg, Prozac 60 mg prescribed by [facility], no significant medical history, who presents to the emergency department as a [place] [facility] for evaluation from [facility]. According to the [place], patient was becoming rowdy and threatening staff with guns. Patient states he takes Prozac and Zyprexa and is compliant with these medications. On my psychiatric evaluation today the patient is irritable, but cooperative. The patient says that he is here because several people are lying about him. He says that "they are saying that I have a machete, that I have guns and I want to kill people, but that is not true, they are always laying about me". He reports that he has been taking his medications, "even though I do not have any schizophrenia or schizoaffective disorder, they are inventing that to keep me under good control ". Patient says that he is going to leave his living facility tomorrow. Patient is requesting to be discharged, and becomes a little bit hostile and agitated, but verbally de-escalated. He denies suicidal enemas ideation, he denies visual and auditory hallucinations. The patient is kind irritable, but lineal, goal-directed, no prominent loosening of association or disorganization present, but the patient seems to be quite paranoid. He is fully oriented x3, no attention deficit, no fluctuation of consciousness. PPHx:, with a psychiatric history of schizophrenia versus schizoaffective disorder, multiple psychiatric admissions, he denies previous suicidal attempts , he was hospitalized here in [place] on November 2017 under the care of Dr. Mcclellan, the patient is on Zyprexa 10 mg, Prozac 60 mg prescribed by [facility] Tobacco Use In Past 30 Days: Yes How Often Do You Have a Drink Containing Alcohol: Monthly or less Hospital Course: Patient was admitted to a locked, inpatient psychiatric unit. Appropriate precautions were in place throughout patient's hospital stay. Patient was seen and examined on the unit by psychiatry and also visited by counselor. Psychotropic medications were adjusted. Patient tolerated medication changes well without side effects. Patient's case was presented to the [place] , and the business services sales representative has ordered the patient's discharge from the inpatient unit today in accordance with patient's wishes. Patient remains paranoid and disheveled with poor hygiene. He does not have any SI or HI, though. I fear that he will not adequately care for himself in less restrictive setting. Patient does, begrudgingly, agree to a home nursing referral on discharge to check up on the patient in the community, but I suspect he will refuse to allow nurse to visit with him. Patient will be discharged AGAINST MEDICAL ADVICE. Psychiatric follow up as arranged by counselor. Patient also to follow up with primary care. Patient to return to psychiatric emergency room for any concerning symptoms as part of a general safety plan. - Discharge Discharge Date: 03/30/18 - Discharge Diagnosis (1) Paranoid schizophrenia Diagnosis: Principal Code(s): F20.0 - Paranoid schizophrenia Status: Acute Discharge Disposition: AMA - Discharge Instructions Discharge Diet: Regular Diet Activities You Can Perform: Weight Bearing As Tolerat - Discharge Time <= 30 minutes Mental Status Examination Appearance: Disheveled Consciousness: Alert Orientation: Person, Place (at least) Motor Activity: Other (No motoric abnormalities noted) Speech: Unremarkable Language: Adequate Fund of Knowledge: Adequate Attention and Concentration: Adequate Memory: Unremarkable (Grossly intact on clinical exam) Mood: Irritable Affect: Irritable Thought Process & Associations: Intact Thought Content: Delusional Hallucination Type: None Delusion Type: Paranoid Suicidal Ideation: No Suicidal Plan: No Suicidal Intention: No Homicidal Ideation: No Homicidal Plan: No Homicidal Intention: No Insight: Poor Judgment: Poor Discharge/Advance Care Plan - Results Vital Signs: Last Vital Signs Temp 97.3 F L 03/30/18 05:54 Pulse 72 03/30/18 05:54 Resp 16 03/30/18 05:54 BP 102/55 L 03/30/18 05:54 Pulse Ox 98 03/30/18 05:54 Lab Results: Laboratory Results Hemoglobin A1c 5.3 % (4.3-6.0) 03/25/18 07:13 Triglycerides 58 mg/dL (42-150) 03/25/18 07:13 Cholesterol 168 mg/dL (120-200) 03/25/18 07:13 LDL Cholesterol, Calc 100 mg/dL (0-99) H 03/25/18 07:13 HDL Cholesterol 56.7 mg/dL (40.0-60.0) 03/25/18 07:13 TSH 1.700 uIU/mL (0.358-3.740) 03/21/18 12:15 Urine Culture Comments Culture not ind 03/22/18 06:45 Summary of Procedures: None done. Pending Results: None - Medications Number of antipsychotic medications at discharge: 1 - Discharge Care Plan Goals to Promote Your Health: * To prevent worsening of your condition and complications * To maintain your health at the optimal level Directions to Meet Your Goals: Take your medications as prescribed Follow your dietary instruction Follow activity as directed Keep your appointments as scheduled Take your immunizations and boosters as scheduled If your symptoms worsen call your PCP, if no PCP go to Urgent Care Center or Emergency Room For 06/12 questions related to your inpatient stay or results of tests pending at discharge, please contact Dr. Tirso Mcclellan MD at Smoking is Dangerous to Your Health. Avoid second hand smoking
--- NOTE | 2018-03-30 10:10 | P.DCO ---
- Diagnosis (1) Paranoid schizophrenia Status: Acute - Home Health Nursing Order: Signs/symptoms of disease process, Nursing assessment with vital signs Instructions: Including home psychiatric nursing. - Fiber Machine Tender Order: To evaluate: Living conditions/environment, Support services Order: To provide: Long range planning, Community services - Case Management Consult Case Management Consult-Home Health: Yes - Certification I have seen patient Gianfranco Walden on 03/30/18. My clinical findings support the need for the requested home health care services because: Limited ability to care for self, Need for psychosocial assistance, Impaired cognition/judgement I certify that my clinical findings support that this patient is homebound because: Need for psychosocial assistance
== END 2018-03-30 12:00 | disposition left against medical advice (07) ==
LOC: NEPJ 11:50 → NEDA 03-22 08:29 → H270 03-22 13:17
PROVIDERS: ADMIT Psychiatry & Neurology Psychiatry; ATTEND Psychiatry & Neurology Psychiatry